=== PATIENT | male | born 1955 | race Caucasian/White ===

== ENCOUNTER → 2018-06-02 14:18 | Outpatient (CLI) | payer OTHER, SELFPAY ==
--- NOTE | 2018-06-02 | US_ITS ---
US Arterial Ankle Brachial Ind US Arterial Ankle Brachial Ind HISTORY: Bilateral rest pain Smoker. Hypertension.. Hyperlipidemia and bilateral rest pain bilateral claudication. TECHNIQUE: Segmental pressures obtained of both right and left leg. These are compared to brachial blood pressure to yield index at each level sampled including summary JUAN. The data sheets from the procedure are available in PACS FINDINGS Rest study only performed today No prior studies available for comparison. Blood pressures reported are in millimeters mercury. RIGHT LEG = JUAN 1.1 Right TBI = 0.8 Brachial BP: 130 Thigh BP: 145 with index 1.06 Calf BP: BP 146 with index 1.07 Ankle PT: 156 with index 1.14 Ankle DP : 149 index 1.09 Digit =105 with index 0.77 ========= LEFT LEG JUAN = 1.0 Left TBI = 0.7 Brachial BPD: 137 Thigh BP: BP 141 index 01.03 Calf BP: BP 129 index 0.94 Ankle PT:BP 1:30/index 0.98 Ankle DP: BP 139 index 1.01 Digit = BP 90 with index 0.66 Pulses and waveforms: Normal bilateral --------IMPRESSION: Right JUAN 1.1 Right TBI is 0.8 . Left JUAN 1.0 Left TBI 0.7 Normal pulses and waveforms bilateral.
== END ==
PROVIDERS: PCP Nurse Practitioner Family; Visit Provider Nurse Practitioner Family
DX: M79.661 Pain in right lower leg (principal)
CPT/HCPCS: 93922

== ENCOUNTER 2023-08-05 13:53 | Outpatient (CLI) | payer OTHER, MEDICARE, SELFPAY ==
--- NOTE | 2023-08-05 13:58 | MR_ITS ---
FINAL REPORT CLINICAL HISTORY: PAIN OF LEFT KNEE JOINT FINDINGS: Multiplanar MR imaging of the right knee was performed without contrast. There is diffuse medial meniscal degeneration with a tear of the anterior horn and possible tear of the posterior horn. The lateral meniscus is intact. There is fluid in the anterior cruciate ligament, favor cyst or mucinous degeneration. The posterior cruciate ligament is intact. The medial collateral ligament and lateral ligamentous complex are intact. The patellar and quadriceps tendons are intact. There is no evidence of fracture. Foci of patellar tendinitis. There are moderate degenerative changes with severe medial compartment chondromalacia. Small joint effusion is seen. The musculature is intact. Moderate popliteal cyst is identified. There is a 15 mm presumed ganglion of the lateral tibia adjacent to the proximal tibiofibular joint. IMPRESSION: Tear of the anterior horn of the medial meniscus with possible tear of the posterior horn. ACL cyst versus mucinous degeneration. Degenerative change and chondromalacia. Ganglion cyst of the lateral tibia. Reviewed, Interpreted and Dictated by Tyree España III, MD Transcribed by Radha Martin Authenticated and [facility]
== END 2023-08-05 23:59 | disposition home or self-care (01) ==
LOC: RAD 13:54
PROVIDERS: PCP Nurse Practitioner; Visit Provider Nurse Practitioner
DX: M25.562 Pain in left knee (principal)
CPT/HCPCS: 73721

== ENCOUNTER 2023-10-05 07:00 | Outpatient (RCR) | payer OTHER, MEDICARE, SELFPAY | END 2023-10-26 13:25 | disposition home or self-care (01) | LOC: PT 07:00 | PROVIDERS: Visit Provider Orthopaedic Surgery | DX: M17.12 Unilateral primary osteoarthritis, left knee (principal); S83.242A Other tear of medial meniscus, current injury, left knee, initial encounter | CPT/HCPCS: 97010; 97014; 97035; 97110; 97163; 97164; 97530; G0283 ==

== ENCOUNTER 2025-01-09 06:51 | Outpatient (CLI) | payer OTHER, MEDICARE, SELFPAY ==
--- OUTSIDE RECORDS SUMMARY | 2025-01-09 06:54 | XMS_ITS | Continuity of Care Document ---
Author Organization [place] - [employer] [facility] Address [address] [place] [address] Assessment No assessment recorded. Plan of Treatment Reminders Order Date Submit Date Provider Last Modified By Organization Details Last Modified Time Details Appointments FOLLOW UP 30 2025 08:00A M Anna Marie Hein APRN Not available Not available Not available Lab CBC w/ auto diff 2024 025 [facility]), [address] [place], [address], 12/30/2024 07:08:14 CMP, serum or plasma 2024 025 [facility]), [address] [place], [address], 12/30/2024 07:08:14 TSH + free T4, serum 2024 025 [facility]), [address] [place], [address], 12/30/2024 07:08:13 PSA, total, serum or plasma 2024 025 [facility], [address] [place], [address], 12/30/2024 07:08:16 lipid panel, serum 2024 025 [facility], [facility] [place], [address], 12/30/2024 07:08:15 HbA1c (hemoglob in A1c), blood 2024 [facility]), [address] [place], [address], 12/30/2024 07:08:15 ca 125, serum 2024 [facility]), [address] [place], [address], 12/30/2024 07:08:16 vitamin D, 25-hydrox y, total, serum 2024 [facility]), [address] [place], [address], 12/30/2024 07:08:16 noninvasi ve colorecta l cancer DNA + occult blood screening , QL, stool 2024 [facility], [address], [address], [place], [address], 12/29/2024 09:55:19 iron + TIBC + ferritin, serum 2024 [facility]), [address] [place], [address], 12/30/2024 07:08:13 cobalamin and folate panel, serum 2024 [facility]), [address] [place], [address], 12/30/2024 07:08:15 Referral None recorded. Procedures None recorded. Surgeries None recorded. Imaging LDCT, chest, for lung cancer screening [address] ([facility]), [address], [place], [address], 01/05/2025 09:15:58 Medication Orders carvedilo l 6.25 mg tablet 2024 [facility], [address] [place] [address], [address], 12/30/2024 09:24:51 clopidogr el 75 mg tablet 2024 [facility], [address] [place] [address], [address], 12/30/2024 09:24:53 lisinopri l 20 mg-hydroc hlorothia zide 12.5 mg tablet 2024 [facility], [address] [place] [address], [address], 12/30/2024 09:24:52 simvastat in 40 mg tablet 2024 [facility], [address] [place] [address], [address], 12/30/2024 09:24:50 ergocalci ferol (vitamin D2) 1,250 mcg (50,000 unit) capsule 2024 [facility], [address] [place] [address], [address], 12/30/2024 09:24:50 omeprazol e 40 mg capsule,d elayed release 2024 [facility], [address] [place] [address], [address], 12/30/2024 09:24:51 Patient TargetsNo targets recorded. Patient InstructionsNo instructions recorded. Reason for Referral None Reported. Results Created Date Observation Date Name Description Value Unit Range Abnormal Flag Note LastModifiedBy Organization Detail LastModifiedTime 12/30/1912/30/2024 FE+TI BC+FE R iron bind.cap.(TI BC) 373 ug/dL 250-45 0 normal Not Available [facility] ([facility]) [address] [place], [address], 12/30/2024 07:08:13 12/30/1912/30/2024 FE+TI BC+FE R UIBC 345 ug/dL 111-34 3 above high normal Not Available [facility] ([facility]) [address] [place], [address], 12/30/2024 07:08:13 12/30/1912/30/2024 FE+TI BC+FE R iron 28 ug/dL 38-169 below low normal Not Available [facility] ([facility]) [address] [facility], [place], [address], 12/30/2024 07:08:13 12/30/1912/30/2024 FE+TI BC+FE R iron saturation 8 % 15-55 alert low Not Available [facility] ([facility]) [address] [place], [address], 12/30/2024 07:08:13 12/30/1912/30/2024 FE+TI BC+FE R ferritin 90 NG/mL 30-400 normal Not Available [facility] ([facility]) [address] [place], [address], 12/30/2024 07:08:13 12/30/1912/30/2024 TSH+F REE T4 TSH 0.734 uIU/m L 0.450- 4.500 normal Not Available [facility] ([facility]) [address] [place], [address], 12/30/2024 07:08:13 12/30/1912/30/2024 TSH+F REE T4 T4,free(dire ct) 1.15 NG/dL 0.82-1 .77 normal Not Available [facility] ([facility]) [address] [place], [address], 12/30/2024 07:08:13 12/30/19 25 12/30/2024 CBC WITH DIFFE RENTI AL/PL ATELE T WBC 12.8 x10e3 /uL 3.4-10 .8 above high normal Not Available [facility] ([facility]) [address] [facility], [place], [address], 12/30/2024 07:08:14 12/30/1912/30/2024 CBC WITH DIFFE RENTI AL/PL ATELE T RBC 4.66 x10e6 /uL 4.14-5 .80 normal Not Available [facility] ([facility]) [address] [place], [address], 12/30/2024 07:08:14 12/30/1912/30/2024 CBC WITH DIFFE RENTI AL/PL ATELE T hemoglobin 12.3 g/dL 13.0-1 7.7 below low normal Not Available [facility] ([facility]) [address] [facility], [place], [address], 12/30/2024 07:08:14 12/30/1912/30/2024 CBC WITH DIFFE RENTI AL/PL ATELE T hematocrit 40.0 % 37.5-5 1.0 normal Not Available [facility] ([facility]) [address] [place], [address], 12/30/2024 07:08:14 12/30/1912/30/2024 CBC WITH DIFFE RENTI AL/PL ATELE T MCV 86 fL 79-97 normal Not Available [facility] ([facility]) [address] [place], [address], 12/30/2024 07:08:14 12/30/1912/30/2024 CBC WITH DIFFE RENTI AL/PL ATELE T MCH 26.4 pg 26.6-3 3.0 below low normal Not Available [facility] ([facility]) [address] [place], [address], 12/30/2024 07:08:14 12/30/1912/30/2024 CBC WITH DIFFE RENTI AL/PL ATELE T MCHC 30.8 g/dL 31.5-3 5.7 below low normal Not Available [facility] ([facility]) [address] [facility], [place], [address], 12/30/2024 07:08:14 12/30/1912/30/2024 CBC WITH DIFFE RENTI AL/PL ATELE T RDW 14.5 % 11.6-1 5.4 Not Available [facility] ([facility]) [address] [facility], [place], [address], 12/30/2024 07:08:14 12/30/1912/30/2024 CBC WITH DIFFE RENTI AL/PL ATELE T platelets 258 x10e3 /uL 150-45 0 normal Not Available [facility] ([facility]) [address] [facility], [place], [address], 12/30/2024 07:08:14 12/30/1912/30/2024 CBC WITH DIFFE RENTI AL/PL ATELE T neutrophils 69 % not estab. normal Not Available [facility] ([facility]) [address] [facility], [place], [address], 12/30/2024 07:08:14 12/30/1912/30/2024 CBC WITH DIFFE RENTI AL/PL ATELE T lymphs 19 % not estab. normal Not Available [facility] ([facility]) [address] [facility], [place], [address], 12/30/2024 07:08:14 12/30/19 25 12/30/2024 CBC WITH DIFFE RENTI AL/PL ATELE T monocytes 9 % not estab. normal Not Available [facility] ([facility]) [address] [facility], [place], [address], 12/30/2024 07:08:14 12/30/1912/30/2024 CBC WITH DIFFE RENTI AL/PL ATELE T eos 2 % not estab. normal Not Available [facility] ([facility]) [address] [facility], [place], [address], 12/30/2024 07:08:14 12/30/1912/30/2024 CBC WITH DIFFE RENTI AL/PL ATELE T basos 0 % not estab. normal Not Available [facility] ([facility]) [address] [facility], [place], [address], 12/30/2024 07:08:14 12/30/1912/30/2024 CBC WITH DIFFE RENTI AL/PL ATELE T immature cells FIRE EATER Not Available [facility] ([facility]) [address] [place], [address], 12/30/2024 07:08:14 12/30/1912/30/2024 CBC WITH DIFFE RENTI AL/PL ATELE T neutrophils (absolute) 8.9 x10e3 /uL 1.4-7. 0 above high normal Not Available [facility] ([facility]) [address] [place], [address], 12/30/2024 07:08:14 12/30/19 25 12/30/2024 CBC WITH DIFFE RENTI AL/PL ATELE T lymphs (absolute) 2.4 x10e3 /uL 0.7-3. 1 normal Not Available [facility] ([facility]) [address] [place], [address], 12/30/2024 07:08:14 12/30/1912/30/2024 CBC WITH DIFFE RENTI AL/PL ATELE T monocytes(ab solute) 1.2 x10e3 /uL 0.1-0. 9 above high normal Not Available [facility] ([facility]) [address] [place], [address], 12/30/2024 07:08:14 12/30/1912/30/2024 CBC WITH DIFFE RENTI AL/PL ATELE T eos (absolute) 0.3 x10e3 /uL 0.0-0. 4 normal Not Available [facility] ([facility]) [address] [facility], [place], [address], 12/30/2024 07:08:14 12/30/1912/30/2024 CBC WITH DIFFE RENTI AL/PL ATELE T baso (absolute) 0.0 x10e3 /uL 0.0-0. 2 normal Not Available [facility] ([facility]) [address] [facility], [place], [address], 12/30/2024 07:08:14 12/30/1912/30/2024 CBC WITH DIFFE RENTI AL/PL ATELE T immature granulocytes 1 % not estab. Not Available [facility] ([facility]) [address] [facility], [place], [address], 12/30/2024 07:08:14 12/30/1912/30/2024 CBC WITH DIFFE RENTI AL/PL ATELE T immature grans (abs) 0.1 x10e3 /uL 0.0-0. 1 Not Available [facility] ([facility]) [address] [facility], [place], [address], 12/30/2024 07:08:14 12/30/1912/30/2024 CBC WITH DIFFE RENTI AL/PL ATELE T NRBC FIRE EATER Not Available [facility] ([facility]) [address] [facility], [place], [address], 12/30/2024 07:08:14 12/30/1912/30/2024 CBC WITH DIFFE RENTI AL/PL ATELE T hematology comments: FIRE EATER Not Available [facility] ([facility]) [address] [facility], [place], [address], 12/30/2024 07:08:14 10/03/20 25 12/30/2024 COMP. METAB OLIC PANEL (14) glucose 86 mg/dL 70-99 normal Not Available [facility] ([facility]) [address] [place], [address], 12/30/2024 07:08:14 12/30/19 25 12/30/2024 COMP. METAB OLIC PANEL (14) BUN 22 mg/dL 8-27 normal Not Available [facility] ([facility]) [address] [place], [address], 12/30/2024 07:08:14 12/30/1912/30/2024 COMP. METAB OLIC PANEL (14) creatinine 1.17 mg/dL 0.76-1 .27 normal Not Available [facility] ([facility]) [address] [place], [address], 12/30/2024 07:08:14 12/30/19 25 12/30/2024 COMP. METAB OLIC PANEL (14) eGFR 68 mL/mi n/1.7 3 >59 normal Not Available [facility] ([facility]) [address] [place], [address], 12/30/2024 07:08:14 12/30/19 25 12/30/2024 COMP. METAB OLIC PANEL (14) BUN/creatini ne ratio 19 10-24 normal Not Available [facility] ([facility]) [address] [place], [address], 12/30/2024 07:08:14 12/30/19 25 12/30/2024 COMP. METAB OLIC PANEL (14) sodium 136 mmol/ L 134-14 4 normal Not Available [facility] ([facility]) [address] [place], [address], 12/30/2024 07:08:14 12/30/19 25 12/30/2024 COMP. METAB OLIC PANEL (14) potassium 4.8 mmol/ L 3.5-5. 2 normal Not Available [facility] ([facility]) [address] [place], [address], 12/30/2024 07:08:14 12/30/19 25 12/30/2024 COMP. METAB OLIC PANEL (14) chloride 96 mmol/ L 96-106 normal Not Available [facility] ([facility]) [address] [place], [address], 12/30/2024 07:08:14 12/30/19 25 12/30/2024 COMP. METAB OLIC PANEL (14) carbon dioxide, total 25 mmol/ L 20-29 normal Not Available [facility] ([facility]) [address] [place], [address], 12/30/2024 07:08:14 12/30/19 25 12/30/2024 COMP. METAB OLIC PANEL (14) calcium 9.1 mg/dL 8.6-10 .2 normal Not Available [facility] ([facility]) [address] [place], [address], 12/30/2024 07:08:14 12/30/19 25 12/30/2024 COMP. METAB OLIC PANEL (14) protein, total 6.4 g/dL 6.0-8. 5 normal Not Available [facility] ([facility]) [address] [place], [address], 12/30/2024 07:08:14 12/30/19 25 12/30/2024 COMP. METAB OLIC PANEL (14) albumin 3.8 g/dL 3.9-4. 9 below low normal Not Available [facility] ([facility]) [address] [place], [address], 12/30/2024 07:08:14 12/30/19 25 12/30/2024 COMP. METAB OLIC PANEL (14) globulin, total 2.6 g/dL 1.5-4. 5 Not Available [facility] ([facility]) [address] [place], [address], 12/30/2024 07:08:14 12/30/1912/30/2024 COMP. METAB OLIC PANEL (14) bilirubin, total 0.8 mg/dL 0.0-1. 2 normal Not Available [facility] ([facility]) [address] [place], [address], 12/30/2024 07:08:14 12/30/1912/30/2024 COMP. METAB OLIC PANEL (14) alkaline phosphatase 69 IU/L 47-123 normal Not Available [facility] ([facility]) [address], [place], [address], 12/30/2024 07:08:14 12/30/1912/30/2024 COMP. METAB OLIC PANEL (14) AST (SGOT) 11 IU/L 0-40 normal Not Available [facility] ([facility]) [address] [place], [address], 12/30/2024 07:08:14 12/30/1912/30/2024 COMP. METAB OLIC PANEL (14) ALT (SGPT) 8 IU/L 0-44 normal Not Available [facility] ([facility]) [address] [facility] [place], [address], 12/30/2024 07:08:14 12/30/1912/30/2024 LIPID PANEL cholesterol, total 117 mg/dL 100-19 9 normal Not Available [facility] ([facility]) [address] [place], [address], 12/30/2024 07:08:15 12/30/1912/30/2024 LIPID PANEL triglyceride s 100 mg/dL 0-149 normal Not Available [facility] ([facility]) [address] [facility] [place], [address], 12/30/2024 07:08:15 12/30/19 25 12/30/2024 LIPID PANEL HDL cholesterol 43 mg/dL >39 normal Not Available [facility] ([facility]) [address] [facility], [place], [address], 12/30/2024 07:08:15 12/30/19 25 12/30/2024 LIPID PANEL VLDL cholesterol aurelio 19 mg/dL 5-40 Not Available [facility] ([facility]) [address] [facility], [place], [address], 12/30/2024 07:08:15 12/30/1912/30/2024 LIPID PANEL LDL chol calc ([facility]) 55 mg/dL 0-99 Not Available [facility] ([facility]) [address] [facility], [place], [address], 12/30/2024 07:08:15 12/30/1912/30/2024 LIPID PANEL LDL calc comment: FIRE EATER Not Available [facility] ([facility]) [address] [facility], [place], [address], 12/30/2024 07:08:15 12/30/1912/30/2024 VITAM IN B12 AND FOLAT E vitamin B12 247 pg/mL 232-12 45 normal Not Available [facility] ([facility]) [address] [facility], [place], [address], 12/30/2024 07:08:15 12/30/1912/30/2024 VITAM IN B12 AND FOLAT E folate (folic acid), serum 3.8 NG/mL >3.0 normal A serum folat e ginny ntrat ion of less than 3.1 ng/mL is consi dered to repre sent clini aurelio defic iency . Not Available [facility] ([facility]) [address] [facility], [place], [address], 12/30/2024 07:08:15 12/30/1912/30/2024 HEMOG LOBIN A1C hemoglobin A1C 5.9 % 4.8-5. 6 above high normal Predi abete s: 5.7 - 6.4 Diabe braden: >6.4 Glyce nicko contr ol for adult s with diabe braden: <7.0 Not Available [facility] ([facility]) [address] [place], [address], 12/30/2024 07:08:15 12/30/19 25 12/30/2024 CANCE R ANTIG EN (CA) 125 cancer antigen (Ca) 125 11.2 U/mL not estab. normal [facility] Diagn ostic s Elect twan milum inesc ence Immun oassa y (ECLI A) Value s obtai rell with diffe rent assay metho ds or kits canno t be used inter [employer] eay . Resul ts canno t be inter prete d as absol tejon evide nce of the prese nce or absen ce of [facility] disea se. Not Available [facility] ([facility]) [address] [facility], [place], [address], 12/30/2024 07:08:16 12/30/19 25 12/30/2024 PROST ATE-S PECIF IC AG prostate specific Ag 1.2 NG/mL 0.0-4. 0 normal Twan ECLIA metho dolog y. Accor ding to the Ameri can Urolo gical Assoc iatio n, Serum PSA shoul d decre ase and remai n at undet ectab le level s after radic al prost atect lilly. The AUA defin es bioch emica l recur rence as an initi al PSA value 0.2 ng/mL or great er follo wed by a subse quent confi rmato ry PSA value 0.2 ng/mL or great er. Value s obtai rell with diffe rent assay metho ds or kits canno t be used inter [employer] [facility] [employer] eably . Resul ts canno t be inter prete d as absol tejon evide nce of the prese nce or absen ce of mal nant disea se. Not Available [facility] ([facility]) [address] [facility] [place], [address], 12/30/2024 07:08:16 12/30/19 25 12/30/2024 VITAM IN D, 25-HY DROXY vitamin D, 25-hydroxy 44.0 NG/mL 30.0-1 00.0 Vitam in D defic iency has been defin ed by the Insti tute of Medic ine and an Endoc rine Socie ty pract ice guide line as a level of serum 25-OH vitam in D less than 20 ng/mL (1,2) . The Endoc rine Socie ty went on to furth er defin e vitam in D insuf ficie ncy as a level betwe en 21 and 29 ng/mL (2). 1. IOM (Inst itute of Medic ine). 2009. Dieta ry refer ence intak es for calci um and D. Jere samosn [place]: The [facility] Press . 2. Dolores mejía MF, Shannan orellana [place], Valerie off-F errar i PRATER, et al. Evalu ation , treat ment, and preve ntion of vitam in D defic iency : an Endoc rine Socie ty clini aurelio pract ice guide line. JCEM. 2010; 96(7) :1911 -30. Not Available [facility] ([facility]) [address] [facility], [place], [address], 12/30/2024 07:08:16 Result Notes None recorded. 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 2 08:02:28 Gastroes ophageal reflux disease without esophagi tis 780656576 Active 2017 Not Available [facility] 4 17:03:23 Dyspnea 045455435 Completed 201701/07/2018 Problem Code: R06.02; Problem Code Type: ICD-10; Not Available [facility] 21:20:39 Tobacco dependen ce syndrome 47812453 Completed 201709/27/2020 Problem Code: 305.1; Problem Code Type: ICD-9; Not Available [facility] 2 21:20:43 Gastroes ophageal reflux disease 724637042 Completed 201709/27/2020 Problem Code: 530.81; Problem Code Type: ICD-9; Not Available [facility] 2 21:20:45 Mixed hyperlip idemia 279905294 Active 2017 Problem Code: E78.2; Problem Code Type: ICD-10; Not Available [facility] 4 17:03:23 Dyspnea 439354188 Completed 201702/11/2018 Problem Code: R06.02; Problem Code Type: ICD-10; Not Available [facility] 2 21:20:39 Abnormal weight gain 642198744 Completed 201702/11/2018 Problem Code: R63.5; Problem Code Type: ICD-10; Not Available [facility] 2 21:20:39 Pain of right lower leg 07767989074 9108 Completed 201803/08/2020 Problem Code: M79.661; Problem Code Type: ICD-10; Not Available [facility] 2 21:20:38 Pain of left lower leg 24654746217 9101 Completed 201803/08/2020 Problem Code: M79.662; Problem Code Type: ICD-10; Not Available [facility] 2 21:20:39 Localize d edema 849082327 Completed 201803/08/2020 Problem Code: R60.0; Problem Code Type: ICD-10; Not Available [facility] 2 21:20:39 General examinat ion of patient Completed 201903/08/2020 Not Available [facility] 2 21:20:40 Endocrin e/metabo lic screenin g Completed 201912/26/2021 Problem Code: Z13.29; Problem Code Type: ICD-10; KRISTYN murillo [employer] 2 08:02:10 Screenin g for malignan t neoplasm of prostate Completed 201912/26/2021 Problem Code: Z12.5; Problem Code Type: ICD-10; KRISTYN murillo [employer]. 2 08:02:11 Body mass index 30+ - obesity 491664337 Active 2019 Problem Code: Z68.31; Problem Code Type: ICD-10; Not Available [facility] 4 17:03:23 Screenin g for malignan t neoplasm of colon Completed 201903/08/2020 Not Available [facility] 2 21:20:41 Liver function tests outside referenc e range 163565506 Active 2019 Problem Code: R94.5; Problem Code Type: ICD-10; Not Available [facility] 4 17:03:23 Associate Director Of Biostatistics license medical examinat ion Completed 201912/26/2021 Problem Code: Z02.4; Problem Code Type: ICD-10; RKISTYN murillo [employer] 2 08:02:10 Nicotine dependen 30031484 Completed 202009/27/2020 Problem Code: F17.200; Problem Code Type: ICD-10; Not Available [facility] 2 21:20:38 Low vision right eye, normal vision left eye [id number] 9106 Completed 202012/26/2021 HHL49Ems es: 'H54.51' ; KRISTYN LOOMISNER lidia, [employer]. 2 08:02:11 Body mass index 25-29 - overweig ht 181288295 Completed 202005/28/2020 Problem Code: Z68.29; Problem Code Type: ICD-10; Not Available [facility] 2 21:20:42 Ruptured abdomina l aortic aneurysm 28448890 Active 2020 Problem Code: I71.3; Problem Code Type: ICD-10; Not Available [facility] 4 17:03:23 On examinat ion - inspecti on of blood Completed 202009/27/2020 Not Available [facility] 21:20:39 Wheezing 22943833 Completed 202012/26/2021 Problem Code: R06.2; Problem Code Type: ICD-10; KRISTYN LOOMISNER [employer]ia, [employer] 08:02:11 Viral screenin g Completed 202003/07/2021 Problem Code: Z11.52; Problem Code Type: ICD-10; Not Available [facility] 21:20:40 Pre-surg iraida testing Completed 202012/26/2021 Problem Code: Z01.812; Problem Code Type: ICD-10; KRISTYN murillo, [employer] 2 08:02:10 Body mass index 30+ - obesity 475504664 Completed 202109/26/2021 Problem Code: Z68.31; Problem Code Type: ICD-10; Not Available [facility] 21:20:43 Body mass index 30+ - obesity 481043823 Completed 202109/26/2021 Problem Code: Z68.33; Problem Code Type: ICD-10; Not Available [facility] 21:20:42 Nicotine dependen ce 04286163 Active 2021 Problem Code: F17.200; Problem Code Type: ICD-10; Not Available [facility] 4 17:03:23 COVID-19 304152314 Active 2023 Christin Herrera, [employer] [address] [place], [address] , [employer] 4 09:12:45 Headache 83313729 Active 2023 Christin Herrera NP [address] [place], [address] , [employer] 4 09:32:18 Hyperlip idemia 57168979 Active 2024 Dora Jolly lidia, [employer] 5 14:43:04 Fatigue 30340847 Active 2024 Dorabrock Blancas lidia, [employer] 5 14:43:04 Hypergly cemia 43786295 Active 2024 Dora De La Fuentelly [facility], [employer] 5 14:43:04 Viral wart on finger 037426281 Active 2024 Dora Thakkary [facility], [employer] 5 10:26:48 Problem Notes None recorded. Procedures Surgical History Date Name Laterality Status Provider Name and Address Organization Details Recorded Time 09/23/19 25 Cryosurgery Warts/Skin Tags completed Dora [employer] 09/22/2024 10:27:53 three dimensional ultrasonography of abdominal aortic endovascular aneurysm repair with contrast completed [employer]. 12/26/2021 08:05:24 Unlisted procedure shoulder completed [employer]. 12/26/2021 08:05:39 Imaging Results None recorded. Procedure Notes None recorded. Medical Equipment None Reported. Allergies Allergen ID Allergen Name Allergen Category Reaction Reaction Severity Criticality Documentation Date Start Date Code Code System Note Provider Name and Address Organization Details Recorded Time 58211 atorvasta tin calcium medicatio n Not available Not available Not available 12/02/2021 70420 RxNorm KRISTYNBHANU murillo [facility] [employer], [facility]. 2 08:01:11 Medications Name Sig Start Date Stop Date Status Note LastModified by Organization Details LastModified Time ketoprofe n lidocaine bupivacai ne meloxicam 15% 5% 2% 0.1% topical # APPLY 1-2 GRAMS TO AFFECTED AREAS 3-4 TIMES DAILY 11/16 completed Not Available Not Available Not Available atorvasta tin 80 mg tablet Take 1 tablet at bedtime 09/14 completed Not Available Not Available Not Available carvedilo l 6.25 mg tablet TAKE 1 TABLET BY MOUTH TWICE DAILY with food active Not Available Not Available No t Available lisinopri l 20 mg-hydroc hlorothia zide 12.5 mg tablet TAKE 1 TABLET BY MOUTH EVERY DAY active Not Available Not Available No t Available azithromy teri 250 mg tablet TAKE 2 TABLETS BY MOUTH ON DAY 1, THEN TAKE 1 TABLET DAILY ON DAYS 2-5 12/29 completed Not Available Not Available Not Available meloxicam 15 mg tablet 09/30 completed Not Available Not Available Not Available prednison e 20 mg tablet TAKE 1 TABLET BY MOUTH 3 TIMES DAILY FOR 3 DAYS 12/29 completed Not Available Not Available Not Available Zantac 300 mg tablet Take 1 tablet(s ) by mouth at bedtime 09/14 completed Not Available Not Available Not Available clopidogr el 75 mg tablet TAKE 1 TABLET BY MOUTH ONCE daily active Not Available Not Available No t Available dextromet horphan-g uaifenesi n 10 mg-100 mg/5 mL oral syrup Take 1 teaspoon by mouth q4h prn for cough 02/11 completed Not Available Not Available Not Available omeprazol e 40 mg capsule,d elayed release TAKE 1 CAPSULE BY MOUTH ONCE DAILY BEFORE A MEAL active Not Available Not Available No t Available simvastat in 40 mg tablet TAKE 1 TABLET BY MOUTH DAILY in THE evening active Not Available Not Available No t Available Depo-Medr ol 80 mg/mL suspensio n for injection Take 1 mL by injectio n route. 09/22 completed Not Available Not Available Not Available cyclopent olate 1 % eye drops 12/26 completed Not Available Not Available Not Available hydrocort isone 2.5 % topical cream with perineal applicato r APPLY A THIN LAYER TO THE AFFECTED AREA(S) BY TOPICAL ROUTE 2-4 TIMES DAILY active Not Available Not Available No t Available simvastat in 20 mg tablet 01/01 completed Not Available Not Available Not Available erythromy teri 5 mg/gram (0.5 %) eye ointment 12/26 completed Not Available Not Available Not Available ferrous sulfate 325 mg (65 mg iron) tablet Take 1 tablet every day by oral route for 90 days. active Not Available Not Available No t Available furosemid e 20 mg tablet 05/28 completed Not Available Not Available Not Available albuterol sulfate HFA 90 mcg/actua tion aerosol inhaler inhale ONE TO TWO puffs by MOUTH every FOUR hours as needed active Not Available Not Available No t Available Vitamin D2 1,250 mcg (50,000 unit) capsule TAKE 1 CAPSULE BY MOUTH every WEEK FOR 90 DAYS active Not Available Not Available No t Available amoxicill in 875 mg-potass ium clavulana te 125 mg tablet TAKE 1 TABLET BY MOUTH EVERY TWELVE HOURS FOR 7 DAYS 12/29 completed Not Available Not Available Not Available Euflexxa 10 mg/mL (mw 2.4-3.6 million) intra-art icular syringe Had one injectio n, but will not be getting any more 09/30 completed had one injectio n but will not be getting any more. Not Available Not Available Not Available Symbicort 160 mcg-4.5 mcg/actua tion HFA aerosol inhaler Inhale 2 puffs twice a day by inhalati on route. 06/30 completed Not Available Not Available Not Available ferrous fumarate 325 mg (106 mg iron) tablet Take 1 tablet every day by oral route for 90 days. 2024 active Not Available Not Available Not Avai lable Chantix Continuin g Month Box 1 mg tablet 1 pill po BID 03/08 completed Not Available Not Available Not Available Chantix Starting Month Box 0.5 mg (11)-1 mg (42) tablets in dose pack Take as Directed 01/07 completed Not Available Not Available Not Available Breo Ellipta 100 mcg-25 mcg/dose powder for inhalatio n Inhale 1 puff every day by inhalati on route for 90 days. 09/30 completed does not like the taste Not Available Not Available Not Available Adult Aspirin Regimen 81 mg tablet,de layed release take 1 tablet (81 mg) by oral route once daily 07/13 completed pt states he hasnt taken in a long time Not Available Not Available Not Available Flowflex COVID-19 Antigen Home Test kit 04/03 completed Not Available Not Available Not Available Vitals Date Recorded Body height Body mass index (BMI) Body weight Heart rate Oxygen saturation Oxygen saturation in Arterial blood by Pulse oximetry Systolic And Diastolic Provider Name and Address Organization Details Last Updated DateTime 182.88 cm 26.6 kg/m2 49021.1 g 86 /min 89 % 89 % 133/62 mm[Hg] Dora Blancas [employer], [employer] 08:23:15 Social History Question Answer Notes LastModified by Organizat ion Details LastModified Time Tobacco Smoking Status Current Every Day Smoker KRISTYN murillo, [employer], [employer] 12/26/2021 08:03:51 Do You Have An Advance Directive? No [email or web address] Information n ot available 12/26/2021 Are You Blind Or Do You Have Difficulty Seeing? No [email or web address] Information n ot available 12/26/2021 Are You A Caregiver? No [email or web address] Information not available 04/03/2022 In The 14 Days Before Symptom Onset, Have You Had Close Contact With A Laboratory-confirm ed COVID-19 While That Case Was Ill? No [email or web address] Information n ot available 04/03/2022 In The 14 Days Before Symptom Onset, Have You Had Close Contact With A Person Who Is Under Investigation For COVID-19 While That Person Was Ill? No [email or web address] Information not available 04/03/2022 Have You Been To An Area Known To Be High Risk For COVID-19? No [email or web address] Information not available 12/26/2021 Are You Deaf Or Do You Have Serious Difficulty Hearing? No [email or web address] Information not available 12/26/2021 What Type Of Diet Are You Following? REGULAR [email or web address] Information n ot available 12/26/2021 Have There Been Any Changes To Your Family Or Social Situation? No [email or web address] Information no t available 04/03/2022 Do You Have A Medical Power Of Oil [employer] Superintendent? No [email or web address] Information not available 12/26/2021 What Was The Date Of Your Most Recent Tobacco Screening? 12/29/2024 Information not available 12/29/2024 What Is Your Current Pack Years? 30ormorepack years [email or web address] Information not available 12/26/2021 What Is Your Relationship Status? [email or web address] Information not available 12/26/2021 Do You Use Your Seat Belt Or Car Seat Routinely? Yes [email or web address] Information not available 04/03/2022 Are You Passively Exposed To Smoke? Yes [email or web address] Information no t available 04/03/2022 Are There Any Smokers In Your House? Yes [email or web address] Information not available 04/03/2022 How Much Tobacco Do You Smoke? 2 PPD [email or web address] Information not available 12/26/2021 Do You Participate In Social Media? No [email or web address] Information not available 11/17/2023 Do You Use Sunscreen Routinely? No Information not available 04/03/2022 Has Tobacco Cessation Counseling Been Provided? Yes Information not available 10/15/2022 On What Date Was Tobacco Cessation Counseling Provided? 12/29/2024 Information not available 12/29/2024 Have You Recently Traveled Abroad? No Information not available 12/26/2021 Do You Have Difficulty Walking Or Climbing Stairs? No [email or web address] Information not available 12/26/2021 Are You Currently In School? No [email or web address] Information not available 12/26/2021 Do You Have Any Dietary Restrictions? No [email or web address] Information not available 11/17/2023 Sex: Male Functional Status Question Answer Note LastModified by Organizat ion Details LastModified Time Do you use any illicit or recreational drugs? No [email or web address] Information not available 04/03/2022 Do you or have you ever used any other forms of tobacco or nicotine? No [email or web address] Information not available 11/17/2023 What is your level of alcohol consumption? None history of alcoholism [email or web address] Information not available 12/26/2021 Are you currently employed? Yes [email or web address] Information not available 12/26/2021 Do you have transportation difficulties? No [email or web address] Information not available 12/26/2021 Are you able to walk independently without assistance or assistive devices? YESWOREST [email or web address] Information not available 12/26/2021 Do you have difficulty doing errands alone? No Information not available 12/26/2021 Are you able to care for yourself independently? Yes [email or web address] Information not available 12/26/2021 Do you have difficulty dressing, bathing, grooming, or toileting? No [email or web address] Information not available 12/26/2021 Mental Status Question Answer Note LastModified by Organization D etails LastModified Time Do you have difficulty concentrating, remembering or making decisions? No Information no t available 12/26/2021 Family History Relationship Description Onset Age of this Age Resolved Age Notes LastModified by Organization Details LastModified Time Son Family history of drug abuse [email or web address] Not available 11/29 08:03:29 Mother Family history of neurological disorder [email or web address] Not available 12/26 08:03:23 Father Family history of Hypertension [email or web address] Not available 08:03:20 Medical History Condition Response Hospitalizations N Emergency room visit since last appointm ent. N Hypertension Y Immunizations Vaccine Type Date Status Note Provider Name and Address Organization Details Recorded Time COVID-19 vaccine, vector-nr, rS-Ad26, PF, 0.5 mL 021 completed Not Available [employer] 05/04/2023 17:03:24 zoster recombinant 024 cancelled patient objection Theresa Hein APRN [address] [place], [address], [employer] 10/01/2023 09:01:08 pneumococcal polysaccharide PPV23 024 cancelled patient objection Theresa Hein APRN [address] [place], [address], [facility] [employer] 10/01/2023 09:01:08 COVID-19 vaccine, vector-nr, rS-Ad26, PF, 0.5 mL 022 completed Not Available [facility] 05/04/2023 17:03:24 Past Encounters Encounter ID Performer Location Encounter Start Date Encounter Closed Date Diagnosis/Indication Diagnosis SNOMED-CT Code Diagnosis ICD10 Code Diagnosis IMO Codes Diagnosis Note [id number] Theresa Hein [address] [address] 12/29/2024 08:16:46 12/29/2024 14:18:15 Influenza vaccination declined 898290741 Z28.21 84106609 Fatigue 55009598 R53.83 8347583 Mixed hyperlipidemia 267 746170 E78.2 08999 Hyperglycemia 76132015 R 73.9 61463 Vitamin D deficiency 347 36482 E55.9 08074 Cobalamin deficiency 190 712268 E53.8 62419 Iron defic iency anemia 21054995 D50.9 83130380 Nocturia 596742096 R35.1 59373 Unintentio nal weight loss 331285652 R63.4 260993 Benign ess ential hypertension 3627286 I10 Gastroesop hageal reflux disease without esophagitis 330909064 K21.9 Screening for malignant neoplasm of colon 493804190 Z12.11 816850 Screening for malignant neoplasm of lung 330734338 Z12.2 2394764135 Overweight in adulthood with body mass index of 25 or more but less than 30 838500681 Z68.26 280647 Health Concerns Section Related Observation LastModified by Organization Detai ls LastModified Time None Recorded Concern Status LastModified by Organization Details LastModified Time None Recorded Payers Encounter Date Sequence Insurance Name Policy Number Policy Rosario Covered Member ID Rosario Member ID Guarantor Name 12/29/2024 2 [place] Keyshawn Albarran [id number] Keyshawn Albarran 12/29/2024 1 [facility] [id number] Keyshawn Albarran [id number] Keyshawn Albarran Notes Date Note Type Note Provider Name and Address Organization Details Recorded Time 12/29/2024 text/html pt here today for medication refills. pt states hes doing well on current medication regime. pt states that for the past few weeks he has had a cool burning sensation going down his BLE and a millan in his head when he gets up from a sitting position, sometimes from a laying position. not every time but most of the time. and then after he takes a few steps he is fine . 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 pt had a AAA repair in 2019 and a kidney stent placed in 2020. states that he had a US to check blood flow in BLE in 2022 and everything was fine . pt denies any cp, soa, PRATER, numbness or tingling in BLE. on exam, pt BLE are warm to touch, flesh colored with good pulse. pt denies pain. i am going to order some labs today. if neg then will refer to cardio for further evaluation. pt has also been losing wt. in the past year he has lost 13 lbs. pt states that he went for the colonoscopy and they told him he needed the cardiac clearance and he made an appt. they rescheduled him, before the cardio appt, he called them back to tell them that and then he never heard from them again. i did order a cologuard last year and pt didnt do it. i am going to order another cologuard. pt is also a smoker. i am going to order a ldct. Theresa Hein APRN [address] [facility], [place], [address], [place] [facility] [employer] 12/29/2024 10:55:33
--- NOTE | 2025-01-09 06:55 | CT_ITS ---
FINAL REPORT TECHNIQUE: Thin section axial images were obtained through the lungs using a low-dose technique per lung cancer screening protocol. Reconstruction images were obtained using the axial data. Exam was performed using dose reduction technique. CLINICAL HISTORY: SCREENING current smoker 2 packs for 54 years CAD CTDI : 2.90 DLP: 104.73 COMPARISON: None FINDINGS: CTDLvol: 2.90 DLP: 104.73 Current smoker 108 pack year history Lungs: There is a 3 mm subpleural right upper lobe nodule well seen on series 4, image 48. The lungs are otherwise clear. No consolidations. Lymph nodes: No thoracic lymphadenopathy. Mediastinum: Heart size is normal. There are prominent coronary artery calcifications. Pleura/pericardium: No pleural or pericardial effusion. Other: Limited images of the upper abdomen demonstrate diffuse wall thickening of the stomach, greater than expected even in a nondistended stomach. Otherwise, no acute findings in the upper abdomen. IMPRESSION: 3 mm right upper lobe nodule. Modifier S: Prominent coronary artery calcifications. Gastric wall thickening greater than expected even nondistended stomach. Consider correlation with upper endoscopy if indicated. Lung RADS: 2S Recommendation: 12 month follow-up low-dose chest CT Reviewed, Interpreted and Dictated by Lore Anderson MD Transcribed by Lorena Mayen Authenticated and [facility] [place]
--- OUTSIDE RECORDS SUMMARY | 2025-01-09 06:55 | XMS_ITS | Encounter Summary ---
Author Organization Healthcare Address [address] [place] [address] Care Team Providers Care Chipper Feeder Name Role Phone Theresa Hein APRN Primary Care Provider Encounter Details Date Type Department Care Team (Late Contact Info) Description 11/24/2024 [facility]phone [facility] [address] [facility] [address] Floor [address] [place] [address] Mitali Joseph RN GS - Wound Care Social History Tobacco Use Types Packs/Day Years Used Date Smoking Tobacco: Every Day Cigarettes 1 48 Passive Smoke Exposure: Current Smokeless Tobacco: Never Alcohol Use Standard Drinks/Week Comments Not Currently 0 (1 standard drink = 0.6 oz pur e alcohol) PHQ-2 Answer Date Recorded Patient Health Questionnaire-2 Score 0 04/26/2023 Sex and Gender Information Value Date Recorded Sex Assigned at Male 02/20/2021 8:58 AM EST Legal Sex Male 8:43 PM EDT Gender Identity Male 02/20/2021 8:58 AM EST Sexual Orientation Straight 02/20/2021 8: 58 AM EST documented as of this encounter Miscellaneous Notes * Telephone Encounter - Mitali Joseph RN - 11/24/2024 2:33 PM EDT for patient to ask for release of information permissions r/t paperwork we received from his employer. Clinic phone number included in VM. documented in this encounter Plan of Treatment Upcoming Encounters Date Type Department Care Team (Late Contact Info) Description 06/01/2025 8:30 AM EST Appointment [facility] [address] [place] [address] 06/01/2025 9:00 AM EST Appointment [facility] [address] [facility] [address] [place] [address] 06/01/2025 9:30 AM EST Appointment [facility] [address] [address] [place] [address] 06/01/2025 10:40 AM EST Office Visit [facility] [address] [place] [address] Fabricio Walker MD [address] [facility] [address] [place] [address] documented as of this encounter Visit Diagnoses Not on filedocumented in this encounter Additional Health Concerns Assessment Noted Time A fall risk assessment has been complete d for the patient 06/02/2024 10:56 AM EST A Body Mass Index follow-up plan has been documented for the patient 06/05/2024 3:33 PM EDT documented as of this encounter Care Teams Chipper Feeder Relationship Specialty Start Date End Date Theresa Hein APRN [address] [place] [address] PCP - General 02/25/21 documented as of this encounter
--- OUTSIDE RECORDS SUMMARY | 2025-01-09 06:55 | XMS_ITS | Clinical Summary ---
Author Organization [facility] Address [address] [place] [address] Care Team Providers Care Mine Exploration Engineer Name Role Phone Theresa Hein APRN Primary Care Provider [phone] Allergies Active Allergy Reactions Criticality Noted Date Comments Atorvastatin Other - please docum ent in the comment field Low 06/02/2024 Medications carvedilol (Coreg) 6.25 MG tablet Take 1 tablet (6.25 mg) by mouth 2 (two) times a day with meals. 12/27/2020 Active clopidogrel (Plavix) 75 MG tablet Take 1 tablet (75 mg) by mouth daily. 12/27/2020 Active lisinopril-hydr oCHLOROthiazide 20-12.5 MG tablet Take 1 tablet by mouth daily. 01/10/2021 Active simvastatin (Zocor) 40 MG tablet Take 1 tablet (40 mg) by mouth nightly. 01/10/2021 Active omeprazole OTC (PriLOSEC OTC) 20 MG EC tablet Take 1 tablet (20 mg) by mouth daily. Do not crush, chew, or split. Active aspirin 81 MG EC tablet Take 1 tablet (81 mg total) by mouth 1 (one) time each day in the evening. 30 tablet 2 02/28/2021 Active Symbicort 160-4.5 MCG/ACT inhaler Inhale 2 puffs 2 (two) times a day. 01/01/2023 Active albuterol 108 (90 Base) MCG/ACT inhaler inhale one to two puffs by mouth every 4 hours as needed Active ergocalciferol 1.25 MG (54320 UT) capsule TAKE ONE CAPSULE BY MOUTH WEEKLY FOR 90 DAYS 05/04/2024 Active Active Problems Problem Noted Date Diagnosed Date HTN (hypertension) 01/29/2021 Overview (02/28/2021): Continue home coreg High cholesterol 01/29/2021 Overview (02/28/2021): Continue simvastatin Antiplatelet or antithrombotic long-term use 05/2020 Gastroesophageal reflux disease 01/29/2021 Chronic obstructive pulmonary disease 01/29/2021 Good tolerance for activity 01/29/2021 Iliac aneurysm 01/29/2021 Overview (02/28/2021): S/p stents with Dr. Walker 02/27/2021 Abdominal aortic aneurysm (AAA) without rupture 01/29/2021 Overview (02/28/2021): S/P EVAR with iliac stents with Dr. Walker 02/27/2021 Continue plavix, simvastatin Start asa AAA (abdominal aortic aneurysm, ruptured) 2020 Overview (01/20/2021): Added automatically from request for surgery [id number] Encounters Date Type Department Care Team Description 11/24/2024 Telephone [facility] [address], [address] [address] Mitali Joseph RN 11/24/2024 Telephone [facility] [address], [address] [place] [address] Mitali Joseph RN from Last 3 Months Family History Medical History Relation Name Comments abdominal aortic aneurysm (AAA) Mother Anesthesia problems Neg Hx Malig Hyperthermia Neg Hx Relation Name Status Comments Mother Social History Tobacco Use Types Packs/Day Years Used Date Smoking Tobacco: Every Day Cigarettes 1 48 Passive Smoke Exposure: Current Smokeless Tobacco: Never Tobacco Cessation:Ready to Q uit: No; Counseling Given: No Alcohol Use Standard Drinks/Week Comments Not Currently 0 (1 standard drink = 0.6 oz pur e alcohol) PHQ-2 Answer Date Recorded Patient Health Questionnaire-2 Score 0 04/26/2023 Sex and Gender Information Value Date Recorded Sex Assigned at Male 02/20/2021 8:58 AM EST Legal Sex Male 8:43 PM EDT Gender Identity Male 02/20/2021 8:58 AM EST Sexual Orientation Straight 02/20/2021 8: 58 AM EST Last Filed Vital Signs Vital Sign Reading Time Taken Comments Blood Pressure 135/67 06/02/2024 10:57 AM EST Pulse 77 06/02/2024 10:44 AM EST Temperature 36.6 C (97.8 F) 06/02/2024 10:44 AM EST Respiratory Rate 16 02/28/2021 12:00 PM EST Oxygen Saturation 92% 06/02/2024 10:44 AM EST Inhaled Oxygen Concentration - - Weight 91 kg (200 lb 9.9 oz) 06/02/2024 10:44 AM EST Height 181.6 cm (5' 11.5 ) 06/02/2024 10:[address] Body Mass Index 27.59 06/02/2024 10:44 AM EST Plan of Treatment Upcoming Encounters Date Type Department Care Team (Late st Contact Info) Description 06/01/2025 8:30 AM EST Appointment [facility] [address] [place] [address] 06/01/2025 9:00 AM EST Appointment [facility] [address], [address] [place] [address] 06/01/2025 9:30 AM EST Appointment [facility] [address], [address] [place] [address] 06/01/2025 10:40 AM EST Office Visit [facility] [address], [address] [place] [address] Fabricio Walker MD [address] [facility] [address] [place] [address] Health Maintenance Due Date Last Done Comments [facility]-Hepatitis C Screening 1955 [facility]-Medicare Annual Wellness (AWV) 1955 [facility]-/Child/Adol SDOH Screenings 1955 [facility]- SDOH Screenings 1974 [facility]-Adult SDOH Screenings 1974 [facility]-DTaP,Tdap,and Td Vaccine s (1 - Tdap) 10/05/1975 [facility]-Pneumococcal Vaccine: 50 + Years (1 of 2 - PCV) 10/05/1975 CT Colonography 2001 Colonoscopy 2001 FIT-DNA 2001 FIT 2001 FOBT 2001 Sigmoidoscopy 2001 [facility]-Colorectal Cancer Screening 2001 [facility]-Zoster Vaccines (1 of 2) 2006 [facility]-Lung Cancer Screening 05/15/2021 05/15/2020 [facility]-Abdominal Aortic Aneurys m (AAA) Screening 2021 [facility]-Depression Screening 04/26/2024 04/26/2023 [facility]-OUOIB-51 Vaccine (3 - season) 2024 04/17/2021, 08/03/2020 [facility]-Influenza Vaccine (#1) 2024 [facility]-RSV Vaccine: 60+ Years o r (1 - 1-dose 75+ series) 10/05/2031 [facility]-Obesity Intervention Completed 025, 04/26/2023 HPV Vaccines Aged Out No longer eligi ble based on patient's age to complete this topic [facility]-HIB Vaccines Aged Out No longer e ligible based on patient's age to complete this topic [facility]-Hepatitis A Vaccines Aged Out No longer eligible based on patient's age to complete this topic [facility]-IPV Vaccines Aged Out No longer e ligible based on patient's age to complete this topic [facility]-Rotavirus Vaccines Aged Out No lo nger eligible based on patient's age to complete this topic Medical Devices Implanted Type Area Ignition Specialist Device Identifier Shelf Expiration Date Model / Serial / Lot 28.5mm Tanja Aortic X 12mm Tanja Iliac X 12cm Length, Excluder Trunk-Ipsilatera l Leg Endoprosthesis, C3 Delivery System Implanted:Qty: 1 on 02/27/2021 by Fabricio Walker MD at [facility] Stent 11/03/2023 [id number] / [id number] / [id number] Stent Graft Iliac [id number] Viabahnbx - [id number] - [id number] Implanted:Qty: 1 on 02/27/2021 by Fabricio Walker MD at [id number] 09/10/2023 [id number] / [id number] / [id number] Stent Graft Iliac [id number] Lviabahnbx - [id number] Implanted:Qty: 1 on 02/27/2021 by Fabricio Walker MD at [id number] 08/29/2023 [id number] / [id number] / [id number] Stent Graft Iliac [id number] Viabahnbx - [id number] Implanted:Qty: 1 on 02/27/2021 by Fabricio Walker MD at [id number] 11/26/2023 [id number] / [id number] / [id number] Health Care Facilities Inspector Bif 32mm Aor Endoprosth Excldr - [id number] Implanted:Qty: 1 on 02/27/2021 by Fabricio Walker MD at [id number] 07/09/2023 [id number] / [id number] / [id number] Stent Graft Iliac [id number] Viabahnbx - [id number] Implanted:Qty: 1 on 02/27/2021 by Fabricio Walker MD at [id number] 10/02/2023 [id number] / [id number] / [id number] Health Care Facilities Inspector Bif 32mm Aor Endoprosth Excldr - [id number] Implanted:Qty: 1 on 02/27/2021 by Fabricio Walker MD at [id number] 09/15/2023 [id number] / [id number] / [id number] Stent Exp Bili Ld 7 X 57 - [id number] Implanted:Qty: 1 on 02/27/2021 by Fabricio Walker MD at [facility]-[id number] 02/08/2023 [id number] / [id number] Procedures Procedure Name Priority Date/Time Associated Diagnosis Comments CT ANGIO CHEST Routine 05/15/2020 9:49 PM EST from Last 3 Months or Most Recently Relevant to Health Maintenance Results * CT Angio Chest (05/15/2020 9:49 PM EST) Anatomical Region Laterality Modality Chest Computed Tomogra phy Narrative 05/15/2020 10:18 PM EST REQUESTING PHYSICIAN: TYREE CORRALES REASON FOR EXAMINATION/PROCEDURE: RAD PDP:Y * AAA EXAMINATION / PROCEDURE: CTA Chest May 15 2020:49; CTA Abdomen & Pelvis May 15 2020:49; CLINICAL INDICATION: RAD PDP:Y * AAA T ECHNIQUE: Imaging of the chest abdomen and pelvis was performed, from thoracic inlet through pubic symphysis, using spiral technique, following administration of IV contrast, Omnipaque 350, 100 mL according to the CTA thoracic aorta/chest and CTA Abdomen/Pelvis protocol. Reformatted images in the coronal, sagittal, and oblique planes were generated from the axial data set to facilitate diagnostic accuracy. In addition, 3D images were created and reviewed. Total DLP (Dose-Length Pr oduct): 2379.16 mGy.cm. Please note: The reported value represents the total of one or more individual components during the CT acquisition on this date and at this time, and as such, the same value may appear in more than one CT report dependin g on the interpreting/reporting physicians. COMPARISON: Prior outside examination performed on May 15, 2019 FINDINGS: Chest: Aorta/Vessels: No acute thoracic aortic pathology. Calcified and noncalcified at this chronic disease is present within the thoracic aorta which remains normal in caliber. No periaortic hematoma. No filling defect within the pulmonary arteries to suggest pulmonary embolism. Pleural/Pericardial Space: No pneumothorax. No pleural effusions. No pe ricardial effusion. Lymph Nodes: No lymphadenopathy within the chest. Lungs: Mild diffuse bronchial wall thickening which may represent changes of chronic bronchitis. Mild bibasilar atelectasis. Mediastinum: Coronary artery calcifications. Chest wall: No chest wall hematoma or contusion. Bones: No acute fracture within the chest. Abdomen: Vessels: A large infrarenal abdominal aorta is present with discontinuity of the wall at the 11:00 position with a large amount of retrope ritoneal hemorrhage compatible with ruptured traumatic aortic aneurysm. The aorta measures 8.3 cm in AP dimension. No active contrast extravasation. The origin of the right renal artery is difficult to identify. Left renal artery origin is pat ent. Celiac and SMA are patent. Inferior mesenteric artery is visualized and appears to reconstitute via collaterals. Bilateral common iliac artery aneurysms. Liver/Gallbladder/Biliary System: The liver demonstrates homogeneous enhancement. Normal Gallbladder. No intra- or extra-hepatic biliary ductal dilatation. Spleen: The spleen enhances homogeneously. Pancreas: The pancreas enhances homogeneously. Adrenals: The adrenals are morphologically unremarkable. Kidneys: The ri ght kidney is atrophic. Delayed enhancement of the superior pole of the right kidney secondary to marked narrowing of the upper pole renal artery. Left kidney is grossly unremarkable. Nonobstructing right renal calculus.. No hydronephrosis. B owel/Mesentery: The small bowel loops are not dilated. The large bowel loops are not dilated. Lymph Nodes: No lymphadenopathy within the abdomen or pelvis. Fluid Survey: Small volume free intraperitoneal fluid. Large retroperitoneal hematoma . Pelvis: The pelvic viscera are unremarkable. Body Wall: Normal. Bones: No acute fracture within the abdomen or pelvis. IMPRESSION: 1. Ruptured abdominal aortic aneurysm with associated large retroperitoneal hematoma. 2. Calcifie d and noncalcified atherosclerotic disease present within the thoracic aorta without evidence of aneurysmal dilatation. 3. Atrophy of the right kidney with hyperperfusion of the upper pole, likely from occlusion/narrowing of a right upper pole branch. 4. Small volume intraperitoneal free fluid. CRITICAL RESULT: Yes COMMUNICATION: These findings were discussed with ER resident on 05/15/2020 10:16 PM by Felicita Arora via phone confirming the patient was already in the operatin g room.. Verified by: FELICITA ARORA M.D. on May 15 2020 10:16P Transcribed by: [facility] on May 15 2020 10:16P Dictated by: FELICITA ARORA M.D. on May 15 2020 10:02P Procedure Note Felicita Arora MD - 07/23/2020 REQUESTING PHYSICIAN: TYREE ECKERLINE REASON FOR EXAMINATION/PROCEDURE: RAD PDP:Y * AAA EXAMINATION / PROCEDURE: CTA Chest May 15 2020:49; CTA Abdomen & Pelvis May 15 2020:49; CLINICAL INDICATION: RAD PDP:Y * AAA T ECHNIQUE: Imaging of the chest abdomen and pelvis was performed, from thoracic inlet through pubic symphysis, using spiral technique, following administration of IV contrast, Omnipaque 350, 100 mL according to the CTA thoracic aorta/chest and CTA Abdomen/Pelvis protocol. Reformatted images in the coronal, sagittal, and oblique planes were generated from the axial data set to facilitate diagnostic accuracy. In addition, 3D images were created and reviewed. Total DLP (Dose-Length Pr oduct): 2379.16 mGy.cm. Please note: The reported value represents the total of one or more individual components during the CT acquisition on this date and at this time, and as such, the same value may appear in more than one CT report dependin g on the interpreting/reporting physicians. COMPARISON: Prior outside examination performed on May 15, 2019 FINDINGS: Chest: Aorta/Vessels: No acute thoracic aortic pathology. Calcified and noncalcified at this chronic disease is present within the thoracic aorta which remains normal in caliber. No periaortic hematoma. No filling defect within the pulmonary arteries to suggest pulmonary embolism. Pleural/Pericardial Space: No pneumothorax. No pleural effusions. No pe ricardial effusion. Lymph Nodes: No lymphadenopathy within the chest. Lungs: Mild diffuse bronchial wall thickening which may represent changes of chronic bronchitis. Mild bibasilar atelectasis. Mediastinum: Coronary artery calcifications. Chest wall: No chest wall hematoma or contusion. Bones: No acute fracture within the chest. Abdomen: Vessels: A large infrarenal abdominal aorta is present with discontinuity of the wall at the 11:00 position with a large amount of retrope ritoneal hemorrhage compatible with ruptured traumatic aortic aneurysm. The aorta measures 8.3 cm in AP dimension. No active contrast extravasation. The origin of the right renal artery is difficult to identify. Left renal artery origin is pat ent. Celiac and SMA are patent. Inferior mesenteric artery is visualized and appears to reconstitute via collaterals. Bilateral common iliac artery aneurysms. Liver/Gallbladder/Biliary System: The liver demonstrates homogeneous enhancement. Normal Gallbladder. No intra- or extra-hepatic biliary ductal dilatation. Spleen: The spleen enhances homogeneously. Pancreas: The pancreas enhances homogeneously. Adrenals: The adrenals are morphologically unremarkable. Kidneys: The ri ght kidney is atrophic. Delayed enhancement of the superior pole of the right kidney secondary to marked narrowing of the upper pole renal artery. Left kidney is grossly unremarkable. Nonobstructing right renal calculus.. No hydronephrosis. B owel/Mesentery: The small bowel loops are not dilated. The large bowel loops are not dilated. Lymph Nodes: No lymphadenopathy within the abdomen or pelvis. Fluid Survey: Small volume free intraperitoneal fluid. Large retroperitoneal hematoma . Pelvis: The pelvic viscera are unremarkable. Body Wall: Normal. Bones: No acute fracture within the abdomen or pelvis. IMPRESSION: 1. Ruptured abdominal aortic aneurysm with associated large retroperitoneal hematoma. 2. Calcifie d and noncalcified atherosclerotic disease present within the thoracic aorta without evidence of aneurysmal dilatation. 3. Atrophy of the right kidney with hyperperfusion of the upper pole, likely from occlusion/narrowing of a right upper pole branch. 4. Small volume intraperitoneal free fluid. CRITICAL RESULT: Yes COMMUNICATION: These findings were discussed with ER resident on 05/15/2020 10:16 PM by Felicita Arora via phone confirming the patient was already in the operatin g room.. Verified by: FELICITA ARORA M.D. on May 15 2020 10:16P Transcribed by: [facility] on May 15 2020 10:16P Dictated by: FELICITA ARORA M.D. on May 15 2020 10:02P Tyree Corrales MD IMG CT PROCEDURES Final R esult from Last 3 Months or Most Recently Relevant to Health Maintenance [place] [phone] Care Teams Mine Exploration Engineer Relationship Specialty Start Date End Date Theresa Hein APRN [address] [place] [address] PCP - General 02/25/21
--- OUTSIDE RECORDS SUMMARY | 2025-01-09 06:55 | XMS_ITS | Encounter Summary ---
Author Organization Healthcare Address [address] [place] [address] Care Team Providers Care Food And Beverage Order Clerk Name Role Phone Theresa Hein APRN Primary Care Provider [phone] Encounter Details Date Type Department Care Team (Late st Contact Info) Description 11/24/2024 Telephone [facility] [address] [facility] 5th Floor [address] [place] [address] Mitali Joseph RN GS - [...] Encounter - Mitali Joseph RN - 11/24/2024 3:33 PM EDT Phone call with patient who give permission for DOT Physical paperwork to be completed and faxed tothe DOT. I will place a copy of the document in the patient's chart after faxing it. No further questions at this time. documented in this encounter Plan of Treatment Upcoming Encounters Date Type Department Care Team (Late st Contact Info) Description 06/01/2025 8:30 AM EST Appointment [facility] [address] [facility] 5th Floor [address] [place] [address] 06/01/2025 9:00 AM EST Appointment [facility] [address] [place] [address] 06/01/2025 9:30 AM EST Appointment [facility] [address] [place] [address] 06/01/2025 10:40 AM EST Office Visit [facility] [address] [place] [address] Fabricio Walker MD [address] [facility] [address] [place] [address] documented as of this encounter Visit Diagnoses Not on filedocumented in this encounter Additional Health Concerns Assessment Noted Time A fall risk assessment has been complete d for the patient 06/02/2024 10:56 AM EST A Body Mass Index follow-up plan has been documented for the patient 06/05/2024 3:33 PM EDT documented as of this encounter Care Teams Food And Beverage Order Clerk Relationship Specialty Start Date End Date Theresa Hein APRN [address] [place] [address] PCP - General 02/25/21 documented as of this encounter
--- OUTSIDE RECORDS SUMMARY | 2025-01-09 06:55 | XMS_ITS | Data Portability ---
Author Organization [employer] [facility] Address [address] [place] [address] Assessment No assessment recorded. Plan of Treatment Reminders Order Date Submit Date Provider Last Modified By Organization Details Last Modified Time Details Appointments FOLLOW UP 30 2025 08:00A M Anna Marie Hein APRN Not available Not available Not available Lab CBC w/ auto diff [address] [facility]), [address] [place], [address], 12/30/2024 07:08:14 CMP, serum or plasma [address] [facility]), [address] [place], [address], 12/30/2024 07:08:14 TSH + free T4, serum [address] [facility]), [address] [place], [address], 12/30/2024 07:08:13 PSA, total, serum or plasma [address] [facility], [address] [place], [address], 12/30/2024 07:08:16 lipid panel, serum [address] [facility]), [facility] [place] [place], [address], 12/30/2024 07:08:15 HbA1c (hemoglob in A1c), blood [address] [facility]), [address] [place], [address], 12/30/2024 07:08:15 ca 125, serum [address] [facility]), [address] [place], [address], 12/30/2024 07:08:16 vitamin D, 25-hydrox y, total, serum [address] [facility]), [address] [place], [address], 12/30/2024 07:08:16 noninvasi ve colorecta l cancer DNA + occult blood screening , QL, stool 2024 025 [facility], [address], [address], [place], [address], 12/29/2024 09:55:19 iron + TIBC + ferritin, serum [address] [facility]), [address] [place], [address], 12/30/2024 07:08:13 cobalamin and folate panel, serum [address] [facility]), [address] [place], [address], 12/30/2024 07:08:15 lipid panel, serum [address] [facility]), [address] [place], [address], 09/23/2024 07:07:17 CBC w/ auto diff [address] [facility]), [address] [place], [address], 09/23/2024 07:07:16 CMP, serum or plasma [address] [facility]), [address] [place], [address], 09/23/2024 07:07:16 TSH + free T4, serum [address] [facility]), [address] [place], [address], 09/23/2024 07:07:15 cobalamin and folate panel, serum [address] [facility]), [address] [place], [address], 09/23/2024 07:07:18 vitamin D, 25-hydrox y, total, serum [address] [facility]), [address] [place], [address], 09/23/2024 07:07:19 HbA1c (hemoglob in A1c), blood [address] [facility]), [address] [place], [address], 09/23/2024 07:07:19 Hepatitis C IgG Ab, qual, serum [address] [facility]), [address] [place], [address], 09/23/2024 07:07:18 lipid panel, serum [address] [facility]), [address] [place], [address], 04/01/2024 08:11:36 CBC w/ auto diff [address] [facility]), [address] [place] [address], [address], 04/01/2024 08:11:34 CMP, serum or plasma [address] [facility]), [address] [place], [address], 04/01/2024 08:11:35 TSH + free T4, serum [address] [facility]), [address] [place], [address], 04/01/2024 08:11:34 HbA1c (hemoglob in A1c), blood [address] [facility]), [address] [place], [address], 04/01/2024 08:11:37 cobalamin and folate panel, serum [address] [facility]), [address] [place], [address], 04/01/2024 08:11:37 vitamin D, 25-hydrox y, total, serum [address] [facility]), [address] [place], [address], 04/01/2024 08:11:39 PSA, total, serum or plasma [address] [facility]), [address] [place], [address], 04/01/2024 08:11:38 Referral None recorded. Procedures cryosurge ry (PROC) 2024 025 Not available 09/22/2024 10:27:00 Surgeries None recorded. Imaging LDCT, chest, for lung cancer screening [address] ([facility]), [address], [place], [address], 01/05/2025 09:15:58 Medication Orders carvedilo l 6.25 mg tablet 2024 [facility], [address] [place] [address], [address], 12/30/2024 09:24:51 clopidogr el 75 mg tablet 2024 [facility], [address] [place] [address], [address], 12/30/2024 09:24:53 lisinopri l 20 mg-hydroc hlorothia zide 12.5 mg tablet 2024 [facility], [address] [place] [address], [address], 12/30/2024 09:24:52 simvastat in 40 mg tablet 2024 [facility], [address] [place] [address], [address], 12/30/2024 09:24:50 ergocalci ferol (vitamin D2) 1,250 mcg (50,000 unit) capsule 2024 [facility], [address] [place] [address], [address], 12/30/2024 09:24:50 omeprazol e 40 mg capsule,d elayed release 2024 [facility], [address] [place] [address], [address], 12/30/2024 09:24:51 simvastat in 40 mg tablet 2024 025 [facility], [address] [place] [address], [address], 12/08/2024 15:20:56 azithromy teri 250 mg tablet 2024 025 [facility], [address] [place] [address], [address], 12/29/2024 08:37:35 prednison e 20 mg tablet [address] [facility], [address] [place] [address], [address], 12/29/2024 08:24:54 ergocalci ferol (vitamin D2) 1,250 mcg (50,000 unit) capsule 2024 025 [facility], [address] [place] [address], [address], 09/27/2024 14:59:22 omeprazol e 40 mg capsule,d elayed release 2024 025 [facility], [address] [place] [address], [address], 09/23/2024 11:36:17 carvedilo l 6.25 mg tablet 2024 025 [facility], [address] [place] [address], [address], 09/23/2024 11:36:18 clopidogr el 75 mg tablet 2024 025 [facility], [address] [place] [address], [address], 12/08/2024 15:20:57 lisinopri l 20 mg-hydroc hlorothia zide 12.5 mg tablet 2024 025 [facility], [address] [place] [address], [address], 12/08/2024 15:20:56 simvastat in 40 mg tablet 2024 025 [facility], [address] [place] [address], [address], 09/04/2024 14:56:38 ergocalci ferol (vitamin D2) 1,250 mcg (50,000 unit) capsule 2024 025 [facility], [address] [place] [address], [address], 09/04/2024 14:56:41 omeprazol e 40 mg capsule,d elayed release 2024 025 [facility], [address] [place] [address], [address], 09/04/2024 14:56:41 carvedilo l 6.25 mg tablet 2024 025 [facility], [address] [place] [address], [address], 08/05/2024 11:32:31 clopidogr el 75 mg tablet 2024 025 [facility], [address] [place] [address], [address], 09/04/2024 14:56:40 lisinopri l 20 mg-hydroc hlorothia zide 12.5 mg tablet 2024 025 [facility], [address] [place] [address], [address], 09/04/2024 14:56:39 Depo-Medr ol 80 mg/mL suspensio n for injection 2024 025 Not available 09/22/2024 08:38:40 simvastat in 40 mg tablet 2024 025 [facility], [address] [place] [address], [address], 06/06/2024 14:56:26 albuterol sulfate HFA 90 mcg/actua tion aerosol inhaler 2024 025 [facility], [address] [place] [address], [address], 08/05/2024 11:32:34 omeprazol e 40 mg capsule,d elayed release 2024 025 [facility], [address] [place] [address], [address], 06/06/2024 14:56:26 carvedilo l 6.25 mg tablet 2024 025 [facility], [address] [place] [address], [address], 05/05/2024 15:49:26 clopidogr el 75 mg tablet 2024 025 [facility], [address] [place] [address], [address], 06/06/2024 14:56:25 lisinopri l 20 mg-hydroc hlorothia zide 12.5 mg tablet 2024 025 [facility], [address] [place] [address], [address], 06/06/2024 14:56:27 simvastat in 40 mg tablet 2023 024 [facility], [address] [place] [address], [address], 03/07/2024 17:27:49 omeprazol e 40 mg capsule,d elayed release 2023 024 [facility], [address] [place] [address], [address], 12/31/2023 14:47:44 carvedilo l 6.25 mg tablet 2023 024 [facility], [address] [place] [address], [address], 12/31/2023 14:47:44 clopidogr el 75 mg tablet 2023 [facility], [address] [place] [address], [address], 03/07/2024 17:27:50 lisinopri l 20 mg-hydroc hlorothia zide 12.5 mg tablet 2023 [facility], [address] [place] [address], [address], 03/07/2024 17:27:50 albuterol sulfate HFA 90 mcg/actua tion aerosol inhaler 2023 [facility], [address] [place] [address], [address], 10/19/2024 15:10:52 Patient TargetsNo targets recorded. Patient InstructionsNo instructions recorded. Reason for Referral None Reported. Results Created Date Observation Date Name Description Value Unit Range Abnormal Flag Note LastModifiedBy Organization Detail LastModifiedTime 03/31/1904/01/2024 TSH+F REE T4 TSH 1.470 uIU/m L 0.450- 4.500 normal Not Available [facility] ([facility]) [address] [place], [address], 04/01/2024 08:11:34 03/31/1904/01/2024 TSH+F REE T4 T4,free(dire ct) 1.16 NG/dL 0.82-1 .77 normal Not Available [facility] ([facility]) [address] [place], [address], 04/01/2024 08:11:34 03/31/19 25 04/01/2024 CBC WITH DIFFE RENTI AL/PL ATELE T WBC 8.9 x10e3 /uL 3.4-10 .8 normal Not Available [facility] ([facility]) [address] [facility], [place], [address], 04/01/2024 08:11:34 03/31/1904/01/2024 CBC WITH DIFFE RENTI AL/PL ATELE T RBC 4.50 x10e6 /uL 4.14-5 .80 normal Not Available [facility] ([facility]) [address] [facility], [place], [address], 04/01/2024 08:11:34 03/31/19 25 04/01/2024 CBC WITH DIFFE RENTI AL/PL ATELE T hemoglobin 13.1 g/dL 13.0-1 7.7 normal Not Available [facility] ([facility]) [address] [facility], [place], [address], 04/01/2024 08:11:34 03/31/1904/01/2024 CBC WITH DIFFE RENTI AL/PL ATELE T hematocrit 40.2 % 37.5-5 1.0 normal Not Available [facility] ([facility]) [address] [place], [address], 04/01/2024 08:11:34 03/31/19 25 04/01/2024 CBC WITH DIFFE RENTI AL/PL ATELE T MCV 89 fL 79-97 normal Not Available [facility] ([facility]) [address] [place], [address], 04/01/2024 08:11:34 03/31/1904/01/2024 CBC WITH DIFFE RENTI AL/PL ATELE T MCH 29.1 pg 26.6-3 3.0 normal Not Available [facility] ([facility]) [address] [place], [address], 04/01/2024 08:11:34 03/31/19 25 04/01/2024 CBC WITH DIFFE RENTI AL/PL ATELE T MCHC 32.6 g/dL 31.5-3 5.7 normal Not Available [facility] ([facility]) [address] [facility], [place], [address], 04/01/2024 08:11:34 03/31/19 25 04/01/2024 CBC WITH DIFFE RENTI AL/PL ATELE T RDW 12.9 % 11.6-1 5.4 Not Available [facility] ([facility]) [address] [facility], [place], [address], 04/01/2024 08:11:34 03/31/19 25 04/01/2024 CBC WITH DIFFE RENTI AL/PL ATELE T platelets 234 x10e3 /uL 150-45 0 normal Not Available [facility] ([facility]) [address] [facility], [place], [address], 04/01/2024 08:11:34 03/31/19 25 04/01/2024 CBC WITH DIFFE RENTI AL/PL ATELE T neutrophils 63 % not estab. normal Not Available [facility] ([facility]) [address] [facility], [place], [address], 04/01/2024 08:11:34 03/31/19 25 04/01/2024 CBC WITH DIFFE RENTI AL/PL ATELE T lymphs 25 % not estab. normal Not Available [facility] ([facility]) [address] [facility], [place], [address], 04/01/2024 08:11:34 03/31/19 25 04/01/2024 CBC WITH DIFFE RENTI AL/PL ATELE T monocytes 7 % not estab. normal Not Available [facility] ([facility]) [address] [facility], [place], [address], 04/01/2024 08:11:34 03/31/19 25 04/01/2024 CBC WITH DIFFE RENTI AL/PL ATELE T eos 4 % not estab. normal Not Available [facility] ([facility]) [address] [place], [address], 04/01/2024 08:11:34 03/31/19 25 04/01/2024 CBC WITH DIFFE RENTI AL/PL ATELE T basos 1 % not estab. normal Not Available [facility] ([facility]) [address] [facility], [place], [address], 04/01/2024 08:11:34 03/31/19 25 04/01/2024 CBC WITH DIFFE RENTI AL/PL ATELE T immature cells PHYSICIAN PRACTICE MANAGER Not Available [facility] ([facility]) [address] [facility], [place], [address], 04/01/2024 08:11:34 03/31/19 25 04/01/2024 CBC WITH DIFFE RENTI AL/PL ATELE T neutrophils (absolute) 5.6 x10e3 /uL 1.4-7. 0 normal Not Available [facility] ([facility]) [address] [facility], [place], [address], 04/01/2024 08:11:34 03/31/19 25 04/01/2024 CBC WITH DIFFE RENTI AL/PL ATELE T lymphs (absolute) 2.2 x10e3 /uL 0.7-3. 1 normal Not Available [facility] ([facility]) [address] [facility], [place], [address], 04/01/2024 08:11:34 03/31/19 25 04/01/2024 CBC WITH DIFFE RENTI AL/PL ATELE T monocytes(ab solute) 0.6 x10e3 /uL 0.1-0. 9 normal Not Available [facility] ([facility]) [address] [place], [address], 04/01/2024 08:11:34 03/31/19 25 04/01/2024 CBC WITH DIFFE RENTI AL/PL ATELE T eos (absolute) 0.3 x10e3 /uL 0.0-0. 4 normal Not Available [facility] ([facility]) [address] [facility], [place], [address], 04/01/2024 08:11:34 03/31/19 25 04/01/2024 CBC WITH DIFFE RENTI AL/PL ATELE T baso (absolute) 0.1 x10e3 /uL 0.0-0. 2 normal Not Available [facility] ([facility]) [address] [facility], [place], [address], 04/01/2024 08:11:34 03/31/19 25 04/01/2024 CBC WITH DIFFE RENTI AL/PL ATELE T immature granulocytes 0 % not estab. Not Available [facility] ([facility]) [address] [facility], [place], [address], 04/01/2024 08:11:34 03/31/19 25 04/01/2024 CBC WITH DIFFE RENTI AL/PL ATELE T immature grans (abs) 0.0 x10e3 /uL 0.0-0. 1 Not Available [facility] ([facility]) [address] [facility], [place], [address], 04/01/2024 08:11:34 03/31/19 25 04/01/2024 CBC WITH DIFFE RENTI AL/PL ATELE T NRBC PHYSICIAN PRACTICE MANAGER Not Available [facility] ([facility]) [address] [facility], [place], [address], 04/01/2024 08:11:34 03/31/1904/01/2024 CBC WITH DIFFE RENTI AL/PL ATELE T hematology comments: PHYSICIAN PRACTICE MANAGER Not Available [facility] ([facility]) [address] [facility], [place], [address], 04/01/2024 08:11:34 03/31/19 25 04/01/2024 COMP. METAB OLIC PANEL (14) glucose 90 mg/dL 70-99 normal Not Available [facility] ([facility]) [address] [place], [address], 04/01/2024 08:11:35 03/31/19 25 04/01/2024 COMP. METAB OLIC PANEL (14) BUN 20 mg/dL 8-27 normal Not Available [facility] ([facility]) [address] [facility] [place], [address], 04/01/2024 08:11:35 03/31/19 25 04/01/2024 COMP. METAB OLIC PANEL (14) creatinine 1.32 mg/dL 0.76-1 .27 above high normal Not Available [facility] ([facility]) [address] [facility] [place], [address], 04/01/2024 08:11:35 03/31/19 25 04/01/2024 COMP. METAB OLIC PANEL (14) eGFR 59 mL/mi n/1.7 3 >59 below low normal Not Available [facility] ([facility]) [address] [facility], [place], [address], 04/01/2024 08:11:35 03/31/19 25 04/01/2024 COMP. METAB OLIC PANEL (14) BUN/creatini ne ratio 15 10-24 normal Not Available [facility] ([facility]) [address] [facility] [place], [address], 04/01/2024 08:11:35 03/31/19 25 04/01/2024 COMP. METAB OLIC PANEL (14) sodium 141 mmol/ L 134-14 4 normal Not Available [facility] ([facility]) [address] [facility] [place], [address], 04/01/2024 08:11:35 03/31/19 25 04/01/2024 COMP. METAB OLIC PANEL (14) potassium 4.0 mmol/ L 3.5-5. 2 normal Not Available [facility] ([facility]) [address] [facility] [place], [address], 04/01/2024 08:11:35 03/31/19 25 04/01/2024 COMP. METAB OLIC PANEL (14) chloride 98 mmol/ L 96-106 normal Not Available [facility] ([facility]) [address] [facility] [place], [address], 04/01/2024 08:11:35 03/31/19 25 04/01/2024 COMP. METAB OLIC PANEL (14) carbon dioxide, total 29 mmol/ L 20-29 normal Not Available [facility] ([facility]) [address] [facility], [place], [address], 04/01/2024 08:11:35 03/31/19 25 04/01/2024 COMP. METAB OLIC PANEL (14) calcium 9.1 mg/dL 8.6-10 .2 normal Not Available [facility] ([facility]) [address] [facility], [place], [address], 04/01/2024 08:11:35 03/31/19 25 04/01/2024 COMP. METAB OLIC PANEL (14) protein, total 6.7 g/dL 6.0-8. 5 normal Not Available [facility] ([facility]) [address] [facility], [place], [address], 04/01/2024 08:11:35 03/31/19 25 04/01/2024 COMP. METAB OLIC PANEL (14) albumin 4.0 g/dL 3.9-4. 9 normal Not Available [facility] ([facility]) [address] [facility] [place], [address], 04/01/2024 08:11:35 03/31/19 25 04/01/2024 COMP. METAB OLIC PANEL (14) globulin, total 2.7 g/dL 1.5-4. 5 Not Available [facility] ([facility]) [address] [facility], [place], [address], 04/01/2024 08:11:35 03/31/19 25 04/01/2024 COMP. METAB OLIC PANEL (14) bilirubin, total 0.3 mg/dL 0.0-1. 2 normal Not Available [facility] ([facility]) [address] [facility] [place], [address], 04/01/2024 08:11:35 03/31/19 25 04/01/2024 COMP. METAB OLIC PANEL (14) alkaline phosphatase 88 IU/L 44-121 normal Not Available [facility] ([facility]) [address] [facility] [place], [address], 04/01/2024 08:11:35 03/31/19 25 04/01/2024 COMP. METAB OLIC PANEL (14) AST (SGOT) 18 IU/L 0-40 normal Not Available [facility] ([facility]) [address] [facility] [place], [address], 04/01/2024 08:11:35 03/31/19 25 04/01/2024 COMP. METAB OLIC PANEL (14) ALT (SGPT) 14 IU/L 0-44 normal Not Available [facility] ([facility]) [address] [place], [address], 04/01/2024 08:11:35 03/31/19 25 04/01/2024 LIPID PANEL cholesterol, total 162 mg/dL 100-19 9 normal Not Available [facility] ([facility]) [address] [place], [address], 04/01/2024 08:11:36 03/31/19 25 04/01/2024 LIPID PANEL triglyceride s 110 mg/dL 0-149 normal Not Available [facility] ([facility]) [address] [place], [address], 04/01/2024 08:11:36 03/31/19 25 04/01/2024 LIPID PANEL HDL cholesterol 32 mg/dL >39 below low normal Not Available [facility] ([facility]) [address] [place], [address], 04/01/2024 08:11:36 03/31/19 25 04/01/2024 LIPID PANEL VLDL cholesterol aurelio 20 mg/dL 5-40 Not Available [facility] ([facility]) [address], [place], [address], 04/01/2024 08:11:36 03/31/19 25 04/01/2024 LIPID PANEL LDL chol calc ([facility]) 110 mg/dL 0-99 above high normal Not Available [facility] ([facility]) [address], [place], [address], 04/01/2024 08:11:36 03/31/19 25 04/01/2024 LIPID PANEL LDL calc comment: PHYSICIAN PRACTICE MANAGER Not Available [facility] ([facility]) [address], [place], [address], 04/01/2024 08:11:36 03/31/19 25 04/01/2024 VITAM IN B12 AND FOLAT E vitamin B12 387 pg/mL 232-12 45 normal Not Available [facility] ([facility]) [address], [place], [address], 04/01/2024 08:11:37 03/31/19 25 04/01/2024 VITAM IN B12 AND FOLAT E folate (folic acid), serum 3.3 NG/mL >3.0 normal A serum folat e ginny ntrat ion of less than 3.1 ng/mL is consi dered to repre sent clini aurelio defic iency . Not Available [facility] ([facility]) [address], [place], [address], 04/01/2024 08:11:37 03/31/19 25 04/01/2024 HEMOG LOBIN A1C hemoglobin A1C 5.8 % 4.8-5. 6 above high normal Predi abete s: 5.7 - 6.4 Diabe braden: >6.4 Glyce nicko contr ol for adult s with diabe braden: <7.0 Not Available [facility] ([facility]) [address] [facility], [place], [address], 04/01/2024 08:11:37 03/31/19 25 04/01/2024 PROST ATE-S PECIF IC AG prostate specific Ag 1.2 NG/mL 0.0-4. 0 normal Tawn ECLIA metho dolog y. Accor ding to [...] or kits canno t be used inter marquez eably . Resul ts canno t be inter prete d as absol [place] evide nce of the prese nce or absen ce of kalyn mora se. Not Available [facility] ([facility]) [address] [facility], [place], [address], 04/01/2024 08:11:38 03/31/19 25 04/01/2024 VITAM IN D, 25-HY DROXY vitamin D, 25-hydroxy 16.5 NG/mL 30.0-1 00.0 below low normal Vitam in D defic iency has been [...] 1. IOM (Inst itute of Medic ine). 2010. Dieta ry refer ence intak es for calci um and D. Jere samson [place]: The [facility]io [facility]al [facility] Press . 2. Holic k [place], Shannan ey [place], Bisch off-F errar i PRATER, et al. Evalu ation , treat ment, and preve ntion of vitam in D defic iency : an Endoc rine Socie ty clini aurelio pract ice guide line. JCEM. 2010; 96(7) :1911 -30. Not Available [facility] ([facility]) [address] [place], [address], 04/01/2024 08:11:39 09/23/1909/23/2024 TSH+F REE T4 TSH 0.926 uIU/m L 0.450- 4.500 normal Not Available [facility] ([facility]) [address] [place], [address], 09/23/2024 07:07:15 09/23/1909/23/2024 TSH+F REE T4 T4,free(dire ct) 1.03 NG/dL 0.82-1 .77 normal Not Available [facility] ([facility]) [address] [place], [address], 09/23/2024 07:07:15 09/23/1909/23/2024 CBC WITH DIFFE RENTI AL/PL ATELE T WBC 10.8 x10e3 /uL 3.4-10 .8 normal Not Available [facility] ([facility]) [address] [place], [address], 09/23/2024 07:07:16 09/23/1909/23/2024 CBC WITH DIFFE RENTI AL/PL ATELE T RBC 4.46 x10e6 /uL 4.14-5 .80 normal Not Available [facility] ([facility]) [address] [place], [address], 09/23/2024 07:07:16 09/23/19 25 09/23/2024 CBC WITH DIFFE RENTI AL/PL ATELE T hemoglobin 12.7 g/dL 13.0-1 7.7 below low normal Not Available [facility] ([facility]) [address] [place], [address], 09/23/2024 07:07:16 09/23/1909/23/2024 CBC WITH DIFFE RENTI AL/PL ATELE T hematocrit 41.1 % 37.5-5 1.0 normal Not Available [facility] ([facility]) [address] [place], [address], 09/23/2024 07:07:16 09/23/1909/23/2024 CBC WITH DIFFE RENTI AL/PL ATELE T MCV 92 fL 79-97 normal Not Available [facility] ([facility]) [address] [facility] [place], [place], [address], 09/23/2024 07:07:16 09/23/1909/23/2024 CBC WITH DIFFE RENTI AL/PL ATELE T MCH 28.5 pg 26.6-3 3.0 normal Not Available [facility] ([facility]) [address] [place], [address], 09/23/2024 07:07:16 09/23/19 25 09/23/2024 CBC WITH DIFFE RENTI AL/PL ATELE T MCHC 30.9 g/dL 31.5-3 5.7 below low normal Not Available [facility] ([facility]) [address] [place], [address], 09/23/2024 07:07:16 09/23/1909/23/2024 CBC WITH DIFFE RENTI AL/PL ATELE T RDW 13.8 % 11.6-1 5.4 Not Available [facility] ([facility]) [address] [place], [address], 09/23/2024 07:07:16 09/23/19 25 09/23/2024 CBC WITH DIFFE RENTI AL/PL ATELE T platelets 275 x10e3 /uL 150-45 0 normal Not Available [facility] ([facility]) [address] [facility] [address], [place], [address], 09/23/2024 07:07:16 09/23/19 25 09/23/2024 CBC WITH DIFFE RENTI AL/PL ATELE T neutrophils 66 % not estab. normal Not Available [facility] ([facility]) [address] [facility] [address], [place], [address], 09/23/2024 07:07:16 09/23/19 25 09/23/2024 CBC WITH DIFFE RENTI AL/PL ATELE T lymphs 21 % not estab. normal Not Available [facility] ([facility]) [address] [facility] [address], [place], [address], 09/23/2024 07:07:16 09/23/19 25 09/23/2024 CBC WITH DIFFE RENTI AL/PL ATELE T monocytes 8 % not estab. normal Not Available [facility] ([facility]) [address] [facility] [address], [place], [address], 09/23/2024 07:07:16 09/23/19 25 09/23/2024 CBC WITH DIFFE RENTI AL/PL ATELE T eos 4 % not estab. normal Not Available [facility] ([facility]) [address] [facility] [address], [place], [address], 09/23/2024 07:07:16 09/23/19 25 09/23/2024 CBC WITH DIFFE RENTI AL/PL ATELE T basos 1 % not estab. normal Not Available [facility] ([facility]) [address] [place], [address], 09/23/2024 07:07:16 09/23/19 25 09/23/2024 CBC WITH DIFFE RENTI AL/PL ATELE T immature cells PHYSICIAN PRACTICE MANAGER Not Available [facility] ([facility]) [address] [place], [address], 09/23/2024 07:07:16 09/23/19 25 09/23/2024 CBC WITH DIFFE RENTI AL/PL ATELE T neutrophils (absolute) 7.2 x10e3 /uL 1.4-7. 0 above high normal Not Available [facility] ([facility]) [address] [place], [address], 09/23/2024 07:07:16 09/23/19 25 09/23/2024 CBC WITH DIFFE RENTI AL/PL ATELE T lymphs (absolute) 2.2 x10e3 /uL 0.7-3. 1 normal Not Available [facility] ([facility]) [address] [place], [address], 09/23/2024 07:07:16 09/23/19 25 09/23/2024 CBC WITH DIFFE RENTI AL/PL ATELE T monocytes(ab solute) 0.8 x10e3 /uL 0.1-0. 9 normal Not Available [facility] ([facility]) [address] [place], [address], 09/23/2024 07:07:16 09/23/19 25 09/23/2024 CBC WITH DIFFE RENTI AL/PL ATELE T eos (absolute) 0.5 x10e3 /uL 0.0-0. 4 above high normal Not Available [facility] ([facility]) [address] [place], [address], 09/23/2024 07:07:16 09/23/19 25 09/23/2024 CBC WITH DIFFE RENTI AL/PL ATELE T baso (absolute) 0.1 x10e3 /uL 0.0-0. 2 normal Not Available [facility] ([facility]) [address] [place], [address], 09/23/2024 07:07:16 09/23/19 25 09/23/2024 CBC WITH DIFFE RENTI AL/PL ATELE T immature granulocytes 0 % not estab. Not Available [facility] ([facility]) [address] [facility] [address], [place], [address], 09/23/2024 07:07:16 09/23/19 25 09/23/2024 CBC WITH DIFFE RENTI AL/PL ATELE T immature grans (abs) 0.0 x10e3 /uL 0.0-0. 1 Not Available [facility] ([facility]) [address] [facility] [address], [place], [address], 09/23/2024 07:07:16 09/23/19 25 09/23/2024 CBC WITH DIFFE RENTI AL/PL ATELE T NRBC PHYSICIAN PRACTICE MANAGER Not Available [facility] ([facility]) [address] [facility] [address], [place], [address], 09/23/2024 07:07:16 09/23/19 25 09/23/2024 CBC WITH DIFFE RENTI AL/PL ATELE T hematology comments: PHYSICIAN PRACTICE MANAGER Not Available [facility] ([facility]) [address] [facility] [address], [place], [address], 09/23/2024 07:07:16 09/23/19 25 09/23/2024 COMP. METAB OLIC PANEL (14) glucose 85 mg/dL 70-99 normal Not Available [facility] ([facility]) [address] [facility] [address], [place], [address], 09/23/2024 07:07:16 09/23/19 25 09/23/2024 COMP. METAB OLIC PANEL (14) BUN 13 mg/dL 8-27 normal Not Available [facility] ([facility]) [address] [facility] [address], [place], [address], 09/23/2024 07:07:16 09/23/19 25 09/23/2024 COMP. METAB OLIC PANEL (14) creatinine 1.15 mg/dL 0.76-1 .27 normal Not Available [facility] ([facility]) [address] [facility] [address], [place], [address], 09/23/2024 07:07:16 09/23/19 25 09/23/2024 COMP. METAB OLIC PANEL (14) eGFR 70 mL/mi n/1.7 3 >59 normal Not Available [facility] ([facility]) [address] [facility] [address], [place], [address], 09/23/2024 07:07:16 09/23/19 25 09/23/2024 COMP. METAB OLIC PANEL (14) BUN/creatini ne ratio 11 10-24 normal Not Available [facility] ([facility]) [address] [facility] [address], [place], [address], 09/23/2024 07:07:16 09/23/19 25 09/23/2024 COMP. METAB OLIC PANEL (14) sodium 139 mmol/ L 134-14 4 normal Not Available [facility] ([facility]) [address] [facility] [address], [place], [address], 09/23/2024 07:07:16 09/23/19 25 09/23/2024 COMP. METAB OLIC PANEL (14) potassium 4.0 mmol/ L 3.5-5. 2 normal Not Available [facility] ([facility]) [address] [facility] [address], [place], [address], 09/23/2024 07:07:16 09/23/19 25 09/23/2024 COMP. METAB OLIC PANEL (14) chloride 98 mmol/ L 96-106 normal Not Available [facility] ([facility]) [address] [facility] [address], [place], [address], 09/23/2024 07:07:16 09/23/19 25 09/23/2024 COMP. METAB OLIC PANEL (14) carbon dioxide, total 25 mmol/ L 20-29 normal Not Available [facility] ([facility]) [address] [facility] [address], [place], [address], 09/23/2024 07:07:16 09/23/19 25 09/23/2024 COMP. METAB OLIC PANEL (14) calcium 9.4 mg/dL 8.6-10 .2 normal Not Available [facility] ([facility]) [address] [facility] [place], [address], 09/23/2024 07:07:16 09/23/19 25 09/23/2024 COMP. METAB OLIC PANEL (14) protein, total 7.0 g/dL 6.0-8. 5 normal Not Available [facility] ([facility]) [address], [place], [address], 09/23/2024 07:07:16 09/23/19 25 09/23/2024 COMP. METAB OLIC PANEL (14) albumin 4.2 g/dL 3.9-4. 9 normal Not Available [facility] ([facility]) [address] [facility] [place], [address], 09/23/2024 07:07:16 09/23/19 25 09/23/2024 COMP. METAB OLIC PANEL (14) globulin, total 2.8 g/dL 1.5-4. 5 Not Available [facility] ([facility]) [address] [facility] [place], [address], 09/23/2024 07:07:16 09/23/19 25 09/23/2024 COMP. METAB OLIC PANEL (14) bilirubin, total 0.5 mg/dL 0.0-1. 2 normal Not Available [facility] ([facility]) [address] [facility] [place], [address], 09/23/2024 07:07:16 09/23/19 25 09/23/2024 COMP. METAB OLIC PANEL (14) alkaline phosphatase 89 IU/L 44-121 normal Not Available [facility] ([facility]) [address] [facility] [address], [place], [address], 09/23/2024 07:07:16 09/23/19 25 09/23/2024 COMP. METAB OLIC PANEL (14) AST (SGOT) 16 IU/L 0-40 normal Not Available [facility] ([facility]) [address] [facility] [place], [address], 09/23/2024 07:07:16 09/23/19 25 09/23/2024 COMP. METAB OLIC PANEL (14) ALT (SGPT) 11 IU/L 0-44 normal Not Available [facility] ([facility]) [address] [place], [address], 09/23/2024 07:07:16 09/23/19 25 09/23/2024 LIPID PANEL cholesterol, total 129 mg/dL 100-19 9 normal Not Available [facility] ([facility]) [address] [place], [address], 09/23/2024 07:07:17 09/23/19 25 09/23/2024 LIPID PANEL triglyceride s 146 mg/dL 0-149 normal Not Available [facility] ([facility]) [address] [place], [address], 09/23/2024 07:07:17 09/23/19 25 09/23/2024 LIPID PANEL HDL cholesterol 38 mg/dL >39 below low normal Not Available [facility] ([facility]) [address] [place], [address], 09/23/2024 07:07:17 09/23/19 25 09/23/2024 LIPID PANEL VLDL cholesterol aurelio 25 mg/dL 5-40 Not Available [facility] ([facility]) [address] [place], [address], 09/23/2024 07:07:17 09/23/19 25 09/23/2024 LIPID PANEL LDL chol calc ([facility]) 66 mg/dL 0-99 Not Available [facility] ([facility]) [address] [place], [address], 09/23/2024 07:07:17 09/23/19 25 09/23/2024 LIPID PANEL LDL calc comment: PHYSICIAN PRACTICE MANAGER Not Available [facility] ([facility]) [address] [facility] [address], [place], [address], 09/23/2024 07:07:17 09/23/19 25 09/23/2024 VITAM IN B12 AND FOLAT E vitamin B12 321 pg/mL 232-12 45 normal Not Available [facility] ([facility]) [address] [facility] [address], [place], [address], 09/23/2024 07:07:18 09/23/19 25 09/23/2024 VITAM IN B12 AND FOLAT E folate (folic acid), serum 5.4 NG/mL >3.0 normal A serum folat e ginny ntrat ion of less than 3.1 ng/mL is consi dered to repre sent clini aurelio defic iency . Not Available [facility] ([facility]) [address] [facility] [address], [place], [address], 09/23/2024 07:07:18 09/23/19 25 09/23/2024 HCV ANTIB SAHARA RFX TO QUANT PCR HCV Ab Non Reacti ve non reacti ve Not Available [facility] ([facility]) [address] [facility] [address], [place], [address], 09/23/2024 07:07:18 09/23/1909/23/2024 HCV ANTIB SAHARA RFX TO QUANT PCR interpretati on: Commen t Not infec michelle with HCV unles s early or acute infec tion is suspe cted (whic h may be delay ed in an immun ocomp romis ed indiv idual ), or other evide nce exist s to indic ate HCV infec tion. Not Available [facility] ([facility]) [address] [facility] [address], [place], [address], 09/23/2024 07:07:18 09/23/19 25 09/23/2024 HEMOG LOBIN A1C hemoglobin A1C 5.9 % 4.8-5. 6 above high normal Predi abete s: 5.7 - 6.4 Diabe braden: >6.4 Glyce nicko contr ol for adult s with diabe braden: <7.0 Not Available [facility] ([facility]) [address] [facility] [address], [place], [address], 09/23/2024 07:07:19 09/23/1909/23/2024 VITAM IN D, 25-HY DROXY vitamin D, 25-hydroxy 62.1 NG/mL 30.0-1 00.0 Vitam in D defic [...] es for calci um and D. Jere samson [place]: The [facility] . 2. Dolores mejía MF, Shannan orellana [place], Valerie off-F antwonar i PRATER, et al. Evalu ation , treat ment, and preve ntion of vitam in D defic iency : an Endoc rine Socie ty clini aurelio pract ice guide line. JCEM. 2010; 96(7) :1911 -30. Not Available [facility] ([facility]) [address] [facility] [address], [place], [address], 09/23/2024 07:07:19 12/30/1912/30/2024 FE+TI BC+FE R iron bind.cap.(TI BC) 373 ug/dL 250-45 0 normal Not Available [facility] ([facility]) [address] [facility] [address], [place], [address], 12/30/2024 07:08:13 12/30/1912/30/2024 FE+TI BC+FE R UIBC 345 ug/dL 111-34 3 above high normal Not Available [facility] ([facility]) [address] [place], [address], 12/30/2024 07:08:13 12/30/1912/30/2024 FE+TI BC+FE R iron 28 ug/dL 38-169 below low normal Not Available [facility] ([facility]) [address] [place], [address], 12/30/2024 07:08:13 12/30/1912/30/2024 FE+TI BC+FE R iron saturation 8 % 15-55 alert low Not Available [facility] ([facility]) [address] [place], [address], 12/30/2024 07:08:13 12/30/1912/30/2024 FE+TI BC+FE R ferritin 90 NG/mL 30-400 normal Not Available [facility] ([facility]) [address] [place], [address], 12/30/2024 07:08:13 12/30/1912/30/2024 TSH+F REE T4 TSH 0.734 uIU/m L 0.450- 4.500 normal Not Available [facility] ([facility]) [address] [place], [address], 12/30/2024 07:08:13 12/30/1912/30/2024 TSH+F REE T4 T4,free(dire ct) 1.15 NG/dL 0.82-1 .77 normal Not Available [facility] ([facility]) [address] [place], [address], 12/30/2024 07:08:13 12/30/19 25 12/30/2024 CBC WITH DIFFE RENTI AL/PL ATELE T WBC 12.8 x10e3 /uL 3.4-10 .8 above high normal Not Available [facility] ([facility]) [address] [facility] [address], [place], [address], 12/30/2024 07:08:14 12/30/1912/30/2024 CBC WITH DIFFE RENTI AL/PL ATELE T RBC 4.66 x10e6 /uL 4.14-5 .80 normal Not Available [facility] ([facility]) [address] [facility] [address], [place], [address], 12/30/2024 07:08:14 12/30/1912/30/2024 CBC WITH DIFFE RENTI AL/PL ATELE T hemoglobin 12.3 g/dL 13.0-1 7.7 below low normal Not Available [facility] ([facility]) [address] [facility], [place], [address], 12/30/2024 07:08:14 12/30/1912/30/2024 CBC WITH DIFFE RENTI AL/PL ATELE T hematocrit 40.0 % 37.5-5 1.0 normal Not Available [facility] ([facility]) [address] [place], [address], 12/30/2024 07:08:14 12/30/19 25 12/30/2024 CBC WITH DIFFE RENTI AL/PL ATELE T MCV 86 fL 79-97 normal Not Available [facility] ([facility]) [address] [place], [address], 12/30/2024 07:08:14 12/30/1912/30/2024 CBC WITH DIFFE RENTI AL/PL ATELE T MCH 26.4 pg 26.6-3 3.0 below low normal Not Available [facility] ([facility]) [address] [place], [address], 12/30/2024 07:08:14 12/30/19 25 12/30/2024 CBC WITH DIFFE RENTI AL/PL ATELE T MCHC 30.8 g/dL 31.5-3 5.7 below low normal Not Available [facility] ([facility]) [address] [facility], [place], [address], 12/30/2024 07:08:14 12/30/1912/30/2024 CBC WITH DIFFE RENTI AL/PL ATELE T RDW 14.5 % 11.6-1 5.4 Not Available [facility] ([facility]) [address] [facility] [address], [place], [address], 12/30/2024 07:08:14 12/30/1912/30/2024 CBC WITH DIFFE RENTI AL/PL ATELE T platelets 258 x10e3 /uL 150-45 0 normal Not Available [facility] ([facility]) [address] [facility], [place], [address], 12/30/2024 07:08:14 12/30/1912/30/2024 CBC WITH DIFFE RENTI AL/PL ATELE T neutrophils 69 % not estab. normal Not Available [facility] ([facility]) [address] [facility] [address], [place], [address], 12/30/2024 07:08:14 12/30/19 25 12/30/2024 CBC WITH DIFFE RENTI AL/PL ATELE T lymphs 19 % not estab. normal Not Available [facility] ([facility]) [address] [facility] [address], [place], [address], 12/30/2024 07:08:14 12/30/19 25 12/30/2024 CBC WITH DIFFE RENTI AL/PL ATELE T monocytes 9 % not estab. normal Not Available [facility] ([facility]) [address] [facility], [place], [address], 12/30/2024 07:08:14 12/30/19 25 12/30/2024 CBC WITH DIFFE RENTI AL/PL ATELE T eos 2 % not estab. normal Not Available [facility] ([facility]) [address] [facility] [address], [place], [address], 12/30/2024 07:08:14 12/30/1912/30/2024 CBC WITH DIFFE RENTI AL/PL ATELE T basos 0 % not estab. normal Not Available [facility] ([facility]) [address] [facility], [place], [address], 12/30/2024 07:08:14 12/30/1912/30/2024 CBC WITH DIFFE RENTI AL/PL ATELE T immature cells PHYSICIAN PRACTICE MANAGER Not Available [facility] ([facility]) [address] [facility], [place], [address], 12/30/2024 07:08:14 12/30/1912/30/2024 CBC WITH DIFFE RENTI AL/PL ATELE T neutrophils (absolute) 8.9 x10e3 /uL 1.4-7. 0 above high normal Not Available [facility] ([facility]) [address] [facility], [place], [address], 12/30/2024 07:08:14 12/30/19 25 12/30/2024 CBC WITH DIFFE RENTI AL/PL ATELE T lymphs (absolute) 2.4 x10e3 /uL 0.7-3. 1 normal Not Available [facility] ([facility]) [address] [place], [address], 12/30/2024 07:08:14 12/30/1912/30/2024 CBC WITH DIFFE RENTI AL/PL ATELE T monocytes(ab solute) 1.2 x10e3 /uL 0.1-0. 9 above high normal Not Available [facility] ([facility]) [address] [facility], [place], [address], 12/30/2024 07:08:14 12/30/19 25 12/30/2024 CBC WITH DIFFE RENTI AL/PL ATELE T eos (absolute) 0.3 x10e3 /uL 0.0-0. 4 normal Not Available [facility] ([facility]) [address] [facility], [place], [address], 12/30/2024 07:08:14 12/30/19 25 12/30/2024 CBC WITH DIFFE RENTI AL/PL ATELE T baso (absolute) 0.0 x10e3 /uL 0.0-0. 2 normal Not Available [facility] ([facility]) [address] [facility], [place], [address], 12/30/2024 07:08:14 12/30/19 25 12/30/2024 CBC WITH DIFFE RENTI AL/PL ATELE T immature granulocytes 1 % not estab. Not Available [facility] ([facility]) [address] [facility], [place], [address], 12/30/2024 07:08:14 12/30/1912/30/2024 CBC WITH DIFFE RENTI AL/PL ATELE T immature grans (abs) 0.1 x10e3 /uL 0.0-0. 1 Not Available [facility] ([facility]) [address] [facility], [place], [address], 12/30/2024 07:08:14 12/30/19 25 12/30/2024 CBC WITH DIFFE RENTI AL/PL ATELE T NRBC PHYSICIAN PRACTICE MANAGER Not Available [facility] ([facility]) [address] [facility], [place], [address], 12/30/2024 07:08:14 12/30/1912/30/2024 CBC WITH DIFFE RENTI AL/PL ATELE T hematology comments: PHYSICIAN PRACTICE MANAGER Not Available [facility] ([facility]) [address] [facility], [place], [address], 12/30/2024 07:08:14 12/30/19 25 12/30/2024 COMP. METAB OLIC PANEL (14) glucose 86 mg/dL 70-99 normal Not Available [facility] ([facility]) [address] [facility], [place], [address], 12/30/2024 07:08:14 12/30/19 25 12/30/2024 COMP. METAB OLIC PANEL (14) BUN 22 mg/dL 8-27 normal Not Available [facility] ([facility]) [address] [facility] [place], [address], 12/30/2024 07:08:14 12/30/19 25 12/30/2024 COMP. METAB OLIC PANEL (14) creatinine 1.17 mg/dL 0.76-1 .27 normal Not Available [facility] ([facility]) [address] [facility] [place], [address], 12/30/2024 07:08:14 12/30/19 25 12/30/2024 COMP. METAB OLIC PANEL (14) eGFR 68 mL/mi n/1.7 3 >59 normal Not Available [facility] ([facility]) [address] [facility], [place], [address], 12/30/2024 07:08:14 12/30/19 25 12/30/2024 COMP. METAB OLIC PANEL (14) BUN/creatini ne ratio 19 10-24 normal Not Available [facility] ([facility]) [address] [facility] [place], [address], 12/30/2024 07:08:14 12/30/19 25 12/30/2024 COMP. METAB OLIC PANEL (14) sodium 136 mmol/ L 134-14 4 normal Not Available [facility] ([facility]) [address] [facility] [place], [address], 12/30/2024 07:08:14 12/30/19 25 12/30/2024 COMP. METAB OLIC PANEL (14) potassium 4.8 mmol/ L 3.5-5. 2 normal Not Available [facility] ([facility]) [address] [facility] [place], [address], 12/30/2024 07:08:14 12/30/19 25 12/30/2024 COMP. METAB OLIC PANEL (14) chloride 96 mmol/ L 96-106 normal Not Available [facility] ([facility]) [address], [place], [address], 12/30/2024 07:08:14 12/30/19 25 12/30/2024 COMP. METAB OLIC PANEL (14) carbon dioxide, total 25 mmol/ L 20-29 normal Not Available [facility] ([facility]) [address], [place], [address], 12/30/2024 07:08:14 12/30/1912/30/2024 COMP. METAB OLIC PANEL (14) calcium 9.1 mg/dL 8.6-10 .2 normal Not Available [facility] ([facility]) [address], [place], [address], 12/30/2024 07:08:14 12/30/19 25 12/30/2024 COMP. METAB OLIC PANEL (14) protein, total 6.4 g/dL 6.0-8. 5 normal Not Available [facility] ([facility]) [address] [facility] [place], [address], 12/30/2024 07:08:14 12/30/19 25 12/30/2024 COMP. METAB OLIC PANEL (14) albumin 3.8 g/dL 3.9-4. 9 below low normal Not Available [facility] ([facility]) [address] [facility], [place], [address], 12/30/2024 07:08:14 12/30/1912/30/2024 COMP. METAB OLIC PANEL (14) globulin, total 2.6 g/dL 1.5-4. 5 Not Available [facility] ([facility]) [address] [facility] [place], [address], 12/30/2024 07:08:14 12/30/19 25 12/30/2024 COMP. METAB OLIC PANEL (14) bilirubin, total 0.8 mg/dL 0.0-1. 2 normal Not Available [facility] ([facility]) [address] [facility] [place], [address], 12/30/2024 07:08:14 12/30/19 25 12/30/2024 COMP. METAB OLIC PANEL (14) alkaline phosphatase 69 IU/L 47-123 normal Not Available [facility] ([facility]) [address] [facility] [place], [address], 12/30/2024 07:08:14 12/30/1912/30/2024 COMP. METAB OLIC PANEL (14) AST (SGOT) 11 IU/L 0-40 normal Not Available [facility] ([facility]) [address] [place], [address], 12/30/2024 07:08:14 12/30/19 25 12/30/2024 COMP. METAB OLIC PANEL (14) ALT (SGPT) 8 IU/L 0-44 normal Not Available [facility] ([facility]) [address] [place], [address], 12/30/2024 07:08:14 12/30/19 25 12/30/2024 LIPID PANEL cholesterol, total 117 mg/dL 100-19 9 normal Not Available [facility] ([facility]) [address] [place], [address], 12/30/2024 07:08:15 12/30/1912/30/2024 LIPID PANEL triglyceride s 100 mg/dL 0-149 normal Not Available [facility] ([facility]) [address] [place], [address], 12/30/2024 07:08:15 12/30/19 25 12/30/2024 LIPID PANEL HDL cholesterol 43 mg/dL >39 normal Not Available [facility] ([facility]) [address] [facility] [place], [address], 12/30/2024 07:08:15 12/30/1912/30/2024 LIPID PANEL VLDL cholesterol aurelio 19 mg/dL 5-40 Not Available [facility] ([facility]) [address] [facility] [place], [address], 12/30/2024 07:08:15 12/30/1912/30/2024 LIPID PANEL LDL chol calc ([facility]) 55 mg/dL 0-99 Not Available [facility] ([facility]) [address] [facility], [place], [address], 12/30/2024 07:08:15 12/30/1912/30/2024 LIPID PANEL LDL calc comment: PHYSICIAN PRACTICE MANAGER Not Available [facility] ([facility]) [address] [facility], [place], [address], 12/30/2024 07:08:15 12/30/1912/30/2024 VITAM IN B12 AND FOLAT E vitamin B12 247 pg/mL 232-12 45 normal Not Available [facility] ([facility]) [address] [facility], [place], [address], 12/30/2024 07:08:15 12/30/1912/30/2024 VITAM IN B12 AND FOLAT E folate (folic acid), serum 3.8 NG/mL >3.0 normal A serum folat e ginny ntrat ion of less than 3.1 ng/mL is consi dered to repre sent clini aurelio defic iency . Not Available [facility] ([facility]) [address] [facility] [address], [place], [address], 12/30/2024 07:08:15 12/30/1912/30/2024 HEMOG LOBIN A1C hemoglobin A1C 5.9 % 4.8-5. 6 above high normal Predi abete s: 5.7 - 6.4 Diabe braden: >6.4 Glyce nicko contr ol for adult s with diabe braden: <7.0 Not Available [facility] ([facility]) [address] [facility] [address], [place], [address], 12/30/2024 07:08:15 12/30/19 25 12/30/2024 CANCE R ANTIG EN (CA) 125 cancer antigen (Ca) 125 11.2 U/mL not estab. normal [facility] Diagn ostic s Elect twan milum inesc ence Immun oassa y (ECLI A) Value s obtai rell with diffe rent assay metho ds or kits canno t be used inter [facility] e[facility] . Resul ts canno t be inter prete d as absol [place] evide nce of the prese nce or absen ce of kalyn mora se. Not Available [facility] ([facility]) [address] [facility] [address], [place], [address], 12/30/2024 07:08:16 12/30/19 25 12/30/2024 PROST ATE-S [...] or kits canno t be used inter marquez eably . Resul ts canno t be inter prete d as absol [place] evide nce of the prese nce or absen ce of kalyn mora se. Not Available [facility] ([facility]) [address] [facility] [address], [place], [address], 12/30/2024 07:08:16 12/30/1912/30/2024 VITAM IN D, 25-HY DROXY vitamin D, [...] es for calci um and D. Jere samson [place]: The [facility] . 2. Dolores mejía MF, Shannan orellana [place], Valerie off-F chrissy i PRATER, et al. Evalu ation , treat ment, and preve ntion of vitam in D defic iency : an Endoc rine Socie ty clini aurelio pract ice guide line. JCEM. 2010; 96(7) :1911 -30. Not Available [facility] ([facility]) [address], [place], [address], 12/30/2024 07:08:16 Result Notes None recorded. Problems Name Problem SNOMED Code Status Onset Date Resolution Date Notes Provider Name and Address Organization Details Recorded Time Hyperten sive disorder 36237301 Completed 201612/13/2017 Problem Code: I10; Problem Code Type: ICD-10; Not Available [facility] 2 21:20:38 Benign essentia l hyperten roberta 6098265 Active 2016 Problem Code: 401.1; Problem Code Type: ICD-9; Not Available [facility] 4 17:03:23 Gastroes ophageal reflux disease 171923405 Completed 201609/27/2020 Problem Code: 530.81; Problem Code Type: ICD-9; Not Available [facility] 2 21:20:44 Tobacco dependen 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 2 08:02:28 Gastroes ophageal reflux disease without esophagi tis 613030288 Active 2017 Not Available [facility] 4 17:03:23 Dyspnea 219560788 Completed 201701/07/2018 Problem Code: R06.02; Problem Code Type: ICD-10; Not Available [facility] 2 21:20:39 Tobacco dependen ce syndrome 34594391 Completed 201709/27/2020 Problem Code: 305.1; Problem Code Type: ICD-9; Not Available [facility] 2 21:20:43 Gastroes ophageal reflux disease 346096700 Completed 201709/27/2020 Problem Code: 530.81; Problem Code Type: ICD-9; Not Available [facility] 2 21:20:45 Mixed hyperlip idemia 458948435 Active 2017 Problem Code: E78.2; Problem Code Type: ICD-10; Not Available [facility] 4 17:03:23 Dyspnea 728221848 Completed 201702/11/2018 Problem Code: R06.02; Problem Code Type: ICD-10; Not Available [facility] 2 21:20:39 Abnormal weight gain 656118898 Completed 201702/11/2018 Problem Code: R63.5; Problem Code Type: ICD-10; Not Available [facility] 2 21:20:39 Pain of right lower leg 46006918972 9108 Completed 201803/08/2020 Problem Code: M79.661; Problem Code Type: ICD-10; Not Available [facility] 2 21:20:38 Pain of left lower leg 29138656491 9101 Completed 201803/08/2020 Problem Code: M79.662; Problem Code Type: ICD-10; Not Available [facility] 2 21:20:39 Localize d edema 205060333 Completed 201803/08/2020 Problem Code: R60.0; Problem Code Type: ICD-10; Not Available [facility] 2 21:20:39 General examinat ion of patient Completed 201903/08/2020 Not Available [facility] 2 21:20:40 Endocrin e/[place] lic screenin g Completed 201912/26/2021 Problem Code: Z13.29; Problem Code Type: ICD-10; KRISTYN murillo, [employer] 2 08:02:10 Screenin g for malignan t neoplasm of prostate Completed 201912/26/2021 Problem Code: Z12.5; Problem Code Type: ICD-10; KRISTYN murillo, [employer]. 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 2 08:02:10 Nicotine dependen ce 22436098 Completed 202009/27/2020 Problem Code: F17.200; Problem Code Type: ICD-10; Not Available [facility] 2 21:20:38 Low vision right eye, normal vision left eye 55930351501 9106 Completed 202012/26/2021 [id number] es: 'H54.51' ; KRISTYN murillo, [employer] 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 2 08:02:11 Viral screenin g Completed 202003/07/2021 Problem Code: Z11.52; Problem Code Type: ICD-10; Not Available [facility] 21:20:40 Pre-surg iraida testing Completed 202012/26/2021 Problem Code: Z01.812; Problem Code Type: ICD-10; KRISTYN murillo, [employer] 2 08:02:10 Body mass index 30+ - obesity 647023545 Completed 202109/26/2021 Problem Code: Z68.31; Problem Code Type: ICD-10; Not Available [facility] 21:20:43 Body mass index 30+ - obesity 098412240 Completed 202109/26/2021 Problem Code: Z68.33; Problem Code Type: ICD-10; Not Available [facility] 21:20:42 Nicotine dependen ce 13734615 Active 2021 Problem Code: F17.200; Problem Code Type: ICD-10; Not Available [facility] 4 17:03:23 COVID-19 069658610 Active 2023 Christin Herrera, PHYSICIAN PRACTICE MANAGER [address] [place], [address] , [employer] 4 09:12:45 Headache 39622965 Active 2023 Christin Herrera, PHYSICIAN PRACTICE MANAGER [address] [place], [address] , [employer] 4 09:32:18 Hyperlip idemia 51235173 Active 2024 Dora Blancas Radius, [employer] 5 14:43:04 Fatigue 60775782 Active 2024 Dora Blancas Radius, [employer] 5 14:43:04 Hypergly cemia 17748628 Active 2024 Dora Jolly Radius, [employer] 5 14:43:04 Viral wart on finger 678815432 Active 2024 Dora Blancas [employer] 5 10:26:48 Problem Notes None recorded. Procedures Surgical History Date Name Laterality Status Provider Name and Address Organization Details Recorded Time 09/23/19 25 Cryosurgery Warts/Skin Tags completed Dora [employer] 09/22/2024 10:27:53 three dimensional ultrasonography of abdominal aortic endovascular aneurysm repair with contrast completed [employer]. 12/26/2021 08:05:24 Unlisted procedure shoulder completed [employer]. 12/26/2021 08:05:39 Imaging Results None recorded. Procedure Notes None recorded. Medical Equipment None Reported. Allergies Allergen ID Allergen Name Allergen Category Reaction Reaction Severity Criticality Documentation Date Start Date Code Code System Note Provider Name and Address Organization Details Recorded Time 88445 atorvasta tin calcium medicatio n Not available Not available Not available 12/02/2021 97060 RxNorm [employer] 2 08:01:11 Medications Name Sig Start Date [...] blood by Pulse oximetry Systolic And Diastolic Systolic And Diastolic Systolic And Diastolic Provider Name and Address Organization Details Last Updated DateTime 5 182.88 cm 28.9 kg/m2 34290.1 7 g 75 /min 90 % 90 % 173/71 mm[Hg] 168/78 mm[Hg] 160/62 mm[Hg] [employer] 5 08:47:21 Date Recorded Body height Body mass index (BMI) Body weight Heart rate Oxygen saturation Oxygen saturation in Arterial blood by Pulse oximetry Systolic And Diastolic Provider Name and Address Organization Details Last Updated DateTime 5 182.88 cm 27.7 kg/m2 91432.8 4 g 97 /min 91 % 91 % 132/80 mm[Hg] [employer] 5 15:34:10 Date Recorded Body height Body mass index (BMI) Body weight Heart rate Oxygen saturation Oxygen saturation in Arterial blood by Pulse oximetry Systolic And Diastolic Provider Name and Address Organization Details Last Updated DateTime 5 182.88 cm 27.4 kg/m2 98320.6 6 g 74 /min 90 % 90 % 134/68 mm[Hg] [employer] 5 08:38:23 Date Recorded Body height Body mass index (BMI) Body weight Heart rate Oxygen saturation Oxygen saturation in Arterial blood by Pulse oximetry Systolic And Diastolic Provider Name and Address Organization Details Last Updated DateTime 5 182.88 cm 26.6 kg/m2 54358.1 g 86 /min 89 % 89 % 133/62 mm[Hg] [employer] 5 08:23:15 Date Recorded Body height Body mass index (BMI) Body weight Heart rate Oxygen saturation Oxygen saturation in Arterial blood by Pulse oximetry Systolic And Diastolic Provider Name and Address Organization Details Last Updated DateTime 4 182.88 cm 28.3 kg/m2 35934.8 1 g 78 /min 92 % 92 % 132/67 mm[Hg] Dora [employer] 4 08:15:14 Social History Question Answer Notes LastModified by Organizat ion Details LastModified Time Tobacco Smoking Status Current Every Day Smoker KRISTYNBHANU LOOMISESTUARDO murillo [employer]. 12/26/2021 08:03:51 Do You Have An Advance Directive? No [email or web address] Information n ot available 12/26/2021 Are You Blind Or Do You Have Difficulty Seeing? No Information n ot available 12/26/2021 Are You A Caregiver? No [email or web address] Information not available 04/03/2022 In The 14 Days Before Symptom Onset, Have You Had Close Contact With A Laboratory-confirm ed COVID-19 While That Case Was Ill? No [email or web address] Information n ot available 04/03/2022 In The 14 Days Before Symptom Onset, Have You Had Close Contact With A Person Who Is Under Investigation For COVID-19 While That Person Was Ill? No [email or web address] Information not available 04/03/2022 Have You Been To An Area Known To Be High Risk For COVID-19? No Information not available 12/26/2021 Are You Deaf Or Do You Have Serious Difficulty Hearing? No [email or web address] Information not available 12/26/2021 What Type Of Diet Are You Following? REGULAR [email or web address] Information n ot available 12/26/2021 Have There Been Any Changes To Your Family Or Social Situation? No Information no t available 04/03/2022 Do You Have A Medical Power Of Cooler Supervisor? No [email or web address] Information not available 12/26/2021 What Was The Date Of Your Most Recent Tobacco Screening? 12/29/2024 Information not available 12/29/2024 What Is Your Current Pack Years? 30ormorepack years [email or web address] Information not available 12/26/2021 What Is Your Relationship Status? [email or web address] Information not available 12/26/2021 Do You Use Your Seat Belt Or Car Seat Routinely? Yes [email or web address] Information not available 04/03/2022 Are You Passively Exposed To Smoke? Yes Information no t available 04/03/2022 Are There Any Smokers In Your House? Yes [email or web address] Information not available 04/03/2022 How Much Tobacco Do You Smoke? 2 PPD [email or web address] Information not available 12/26/2021 Do You Participate In Social Media? No Information not available 11/17/2023 Do You Use Sunscreen Routinely? No [email or web address] Information not available 04/03/2022 Has Tobacco Cessation Counseling Been Provided? Yes Information not available 10/15/2022 On What Date Was Tobacco Cessation Counseling Provided? 12/29/2024 Information not available 12/29/2024 Have You Recently Traveled Abroad? No [email or web address] Information not available 12/26/2021 Do You Have Difficulty Walking Or Climbing Stairs? No [email or web address] Information not available 12/26/2021 Are You Currently In School? No [email or web address] Information not available 12/26/2021 Do You Have Any Dietary Restrictions? No [email or web address] Information not available 11/17/2023 Sex: Male Functional Status Question Answer Note LastModified by Organizat ion Details LastModified Time Do you use any illicit or recreational drugs? No [email or web address] Information not available 04/03/2022 Do you or have you ever used any other forms of tobacco or nicotine? No [email or web address] Information not available 11/17/2023 What is your level of alcohol consumption? None history of alcoholism [email or web address] Information not available 12/26/2021 Are you currently employed? Yes [email or web address] Information not available 12/26/2021 Do you have transportation difficulties? No [email or web address] Information not available 12/26/2021 Are you able to walk independently without assistance or assistive devices? YESWOREST [email or web address] Information not available 12/26/2021 Do you have difficulty doing errands alone? No [email or web address] Information not available 12/26/2021 Are you able to care for yourself independently? Yes [email or web address] Information not available 12/26/2021 Do you have difficulty dressing, bathing, grooming, or toileting? No [email or web address] Information not available 12/26/2021 Mental Status Question Answer Note LastModified by Organization D etails LastModified Time Do you have difficulty concentrating, remembering or making decisions? No [email or web address] Information no t available 12/26/2021 Family History Relationship Description Onset Age of this Age Resolved Age Notes LastModified by Organization Details LastModified Time Son Family history of drug abuse [email or web address] Not available 11/29 08:03:29 Mother Family history of neurological disorder [email or web address] Not available 12/26 08:03:23 Father Family history of Hypertension Not available 08:03:20 Medical History Condition Response Emergency room visit since last appointm ent. N Hospitalizations N Hypertension Y Immunizations Vaccine Type Date Status Note Provider Name and Address Organization Details Recorded Time COVID-19 vaccine, vector-nr, rS-Ad26, PF, 0.5 mL 021 completed Not Available [facility] 05/04/2023 17:03:24 zoster recombinant 024 cancelled patient objection Theresa Hein APRN [address] [place] [address], [address], [facility] [employer] 10/01/2023 09:01:08 pneumococcal polysaccharide PPV23 024 cancelled patient objection Theresa Hein APRN [address] [place], [address], [employer] 10/01/2023 09:01:08 COVID-19 vaccine, vector-nr, rS-Ad26, PF, 0.5 mL 022 completed Not Available [facility] 05/04/2023 17:03:24 Past Encounters Encounter ID Performer Location Encounter Start Date Encounter Closed Date Diagnosis/Indication Diagnosis SNOMED-CT Code Diagnosis ICD10 Code Diagnosis IMO Codes Diagnosis Note [id number] Theresa Hein RN [facility] [place] [phone] 12/26/2021 07:54:32 12/26/2021 08:32:48 Benign essential hypertension 9016682 I10 Body mass index 30+ - obesity 961134110 Z68.31 Gastroesop hageal reflux disease without esophagitis 203461348 K21.9 Mixed hyperlipidemia 267 383765 E78.2 Nicotine dependence 5629 4008 F17.200 Chronic ob structive pulmonary disease 73677442 J44.9 [id number] Theresa Hein [place] [id number] 04/03/2022 08:10:50 04/03/2022 08:45:34 Benign essential hypertension 2526384 I10 Gastroesop hageal reflux disease without esophagitis 034719987 K21.9 Mixed hyperlipidemia 267 039667 E78.2 Nicotine dependence 5629 4008 F17.200 Chronic ob structive pulmonary disease 78849908 J44.9 Body mass index 30+ - obesity 603475800 Z68.31 [id number] Theresa [place] [address] 07/03/2022 07:55:20 07/03/2022 08:40:55 Benign essential hypertension 3023313 I10 Chronic ob structive pulmonary disease 74678979 J44.9 Mixed hyperlipidemia 267 206942 E78.2 Body mass index 30+ - obesity 655185670 Z68.31 [id number] Theresa Hein [place] [id number] 07/13/2022 16:35:05 07/13/2022 17:16:18 Melena 0845647 K92.1 Mixed hyperlipidemia 267 553619 E78.2 Body mass index 30+ - obesity 942794853 Z68.31 [id number] Theresa Hein [place] [id number] 10/15/2022 08:23:03 10/15/2022 09:06:59 Benign essential hypertension 8404182 I10 Mixed hyperlipidemia 267 188600 E78.2 Gastroesop hageal reflux disease without esophagitis 710803665 K21.9 Body mass index 30+ - obesity 947877580 Z68.31 [id number] [place] [address] 01/01/2023 07:58:46 01/01/2023 08:42:06 Chronic obstructive pulmonary disease 98292304 J44.9 Benign ess ential hypertension 4934079 I10 Gastroesop hageal reflux disease without esophagitis 928773645 K21.9 Mixed hyperlipidemia 267 453825 E78.2 Body mass index 30+ - obesity 788860589 Z68.31 [id number] [place] [address] 04/02/2023 08:00:39 04/02/2023 08:46:15 Benign essential hypertension 0167099 I10 Mixed hyperlipidemia 267 659311 E78.2 Nocturia 903177519 R35.1 Gastroesop hageal reflux disease without esophagitis 672406965 K21.9 Chronic ob structive pulmonary disease 90939623 J44.9 Body mass index 30+ - obesity 131050131 Z68.31 [id number] [place] [address] 06/10/2023 09:27:30 06/10/2023 09:57:56 Pain of left knee joint 8485426208 29265 M25.562 Body mass index 25-29 - overweight 586726951 Z68.29 [id number] [place] [address] 07/01/2023 08:58:04 07/01/2023 09:36:24 Chronic obstructive pulmonary disease 30563494 J44.9 Benign ess ential hypertension 3752014 I10 Gastroesop hageal reflux disease without esophagitis 978319270 K21.9 Mixed hyperlipidemia 267 756109 E78.2 Body mass index 30+ - obesity 272440867 Z68.31 [id number] [place] [address] 10/01/2023 07:57:36 10/01/2023 08:38:51 Benign essential hypertension 7075292 I10 Screening for malignant neoplasm of colon 264412141 Z12.11 Vaccine de clined by patient 9946493339 02 Z28.20 Adult heal th examination 382236873 Z00.00 Body mass index 25-29 - overweight 561759129 Z68.29 Chronic ob structive pulmonary disease 16394623 J44.9 Gastroesop hageal reflux disease without esophagitis 863579208 K21.9 Mixed hyperlipidemia 267 161953 E78.2 [id number] Christin Herrera, [place] [address] 11/17/2023 08:24:27 11/17/2023 09:37:26 Headache 94901475 R51.9 COVID-19 468310923 U07.1 [id number] [place] [id number] 12/31/2023 07:57:58 12/31/2023 08:33:31 Chronic obstructive pulmonary disease 28075693 J44.9 Benign ess ential hypertension 7071728 I10 Gastroesop hageal reflux disease without esophagitis 584255074 K21.9 Mixed hyperlipidemia 267 313961 E78.2 Body mass index 25-29 - overweight 847535407 Z68.29 [id number] Theresa Hein RN [facility] [place] [address] 0 03/31/2024 08:20:15 03/31/2024 09:10:24 Fatigue 58726825 R53.83 Hyperlipidemia 18234423 E78.5 Nocturia 624563612 R35.1 Hyperglycemia 76313151 R 73.9 Vitamin D deficiency 347 76281 E55.9 Vitamin B deficiency 479 20425 E53.9 Chronic ob structive pulmonary disease 92394623 J44.9 Benign ess ential hypertension 5364878 I10 Gastroesop hageal reflux disease without esophagitis 023036163 K21.9 Mixed hyperlipidemia 267 588753 E78.2 Bilateral cramp of muscle of lower limbs 7187135505 1213552 R25.2 Body mass index 25-29 - overweight 172420893 Z68.29 [id number] [place] [address] 06/27/2024 15:20:18 06/27/2024 16:16:15 Pain of right shoulder joint 7017410320 0474823 M25.511 Benign ess ential hypertension 3437138 I10 Gastroesop hageal reflux disease without esophagitis 421250590 K21.9 Mixed hyperlipidemia 267 064612 E78.2 Vitamin D deficiency 347 04296 E55.9 Body mass index 25-29 - overweight 706492405 Z68.29 [id number] [place] [address] 09/22/2024 08:14:06 09/22/2024 08:52:48 Hyperlipidemia 04063409 E78.5 Fatigue 27394000 R53.83 Hyperglycemia 37921373 R 73.9 Viral scre ening status 614246943 Z11.59 948834 Lower resp iratory tract infection 74628651 J22 2464 Benign ess ential hypertension 3201085 I10 Gastroesop hageal reflux disease without esophagitis 128931312 K21.9 Mixed hyperlipidemia 267 902161 E78.2 Vitamin D deficiency 347 86438 E55.9 Viral wart on finger 402 056343 B07.9 03917822 Overweight in adulthood with body mass index of 25 or more but less than 30 748369428 Z68.27 822191 [id number] [place] [address] 12/29/2024 08:16:46 12/29/2024 14:18:15 Influenza vaccination declined 878022477 Z28.21 76941879 Fatigue 92560313 R53.83 6018513 Mixed hyperlipidemia 267 512838 E78.2 66859 Hyperglycemia 98916974 R 73.9 31089 Vitamin D deficiency 347 37994 E55.9 91167 Cobalamin deficiency 190 921931 E53.8 98052 Iron defic iency anemia 04894016 D50.9 69860973 Nocturia 856367540 R35.1 75675 Unintentio nal weight loss 864409523 R63.4 030713 Benign ess ential hypertension 9855477 I10 Gastroesop hageal reflux disease without esophagitis 759223083 K21.9 Screening for malignant neoplasm of colon 711503795 Z12.11 956589 Screening for malignant neoplasm of lung 464063028 Z12.2 8275467801 Overweight in adulthood with body mass index of 25 or more but less than 30 767634905 Z68.26 104492 Health Concerns Section Related Observation LastModified by Organization Detai ls LastModified Time None Recorded Concern Status LastModified by Organization Details LastModified Time None Recorded Advance Directives Directive N: Payers Insurance Date Sequence Insurance Name Policy Number Policy Rosario Covered Member ID Rosario Member ID Guarantor Name 12/28/2024 [place] [employer] [facility] Keyshawn Albarran [id number] Keyshawn Albarran 12/28/2024 2 [place] Keyshawn Albarran [id number] Keyshawn Albarran 12/28/2024 1 [facility] [id number] Keyshawn Albarran [id number] Keyshawn Albarran Notes Date Note Type Note Provider Name and Address Organization Details Recorded Time 12/31/2023 text/html pt here today for medication refills. pt states hes doing well on current medication regime and has no new complaints today. pt states that he has been doing injections in left knee and that has been helping some and its not been as painful. pt has a annual appt with vascular in [place]. pt has no new complaints today. Theresa Hein APRN [address] [place], [address], [employer] 12/31/2023 09:11:34 03/31/2024 text/html pt here today for medication refills. pt states hes doing well on current medication regime. pt does c/o BLE cramps. thinks it could be the statin. states that he stopped it for 3 days and the cramps went away. i will order labwork today. if WNL i will order a regime of zetia and low dose statin to see if that helps. Theresa Hein APRN [address] [place], [address], [employer] 03/31/2024 17:55:20 06/27/2024 text/html 68 year old male presents for chronic disease f/u. States he is doing well on current medication regimen without AE. Has noticed left shoulder has been hurting within the past month. Pain with overhead movement, Denies numbness/tingling/ weakness. Has a hx of bilateral shoulder sx. States he has had steroid injection in the past and hasnt had trouble since. Will do steriod injection today and he is to return for xray if worsens. pt agrees Theresa Hein, DAYLIN [address] [facility] [address], [place], [address], [employer] 06/27/2024 16:15:33 09/22/2024 text/html pt here today for medication refills. pt states hes doing well on current medication regime. pt states that he has had some chest congestion and cough for the past several days. on exam, lungs decreased with ex wheeze and strong cough. i will order abx and steroids. educated pt on new meds. pt voiced understanding. increase fluid intake. return for worsening symptoms. pt also c/o a wart like place on left hand index finger that has been there for a long time. states that he has been clipping it off but it comes back. states that it hurts when he puts his hand in his pocket. on exam appears to be a keratosis. pt sign consent and cryo treatment was applied. pt tolerated procedure. educated pt on what area should look like. return for s/s of infection. pt voiced understanding. Theresa Hein APRN [address] [facility], [place], [address], [employer], [employer] 09/22/2024 10:43:50 12/29/2024 text/html pt here today for medication [...] he is fine . 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 Theresa Hein APRN [address] [facility], [place], [address], [facility] [employer] 12/29/2024 10:55:33
== END 2025-01-09 23:59 | disposition home or self-care (01) ==
LOC: RAD 06:53
PROVIDERS: PCP Nurse Practitioner; Visit Provider Nurse Practitioner
DX: Z12.2 Encounter for screening for malignant neoplasm of respiratory organs (principal); F17.210 Nicotine dependence, cigarettes, uncomplicated; R91.1 Solitary pulmonary nodule; I25.10 Atherosclerotic heart disease of native coronary artery without angina pectoris; K31.89 Other diseases of stomach and duodenum
CPT/HCPCS: 71271

== ENCOUNTER 2025-01-24 08:08 | Outpatient (CLI) | payer OTHER, MEDICARE, SELFPAY ==
--- NOTE | 2025-01-24 08:13 | CT_ITS ---
FINAL REPORT TECHNIQUE: Pre- and postcontrast images of the abdomen were performed by computed tomography. Coronal and sagittal reconstructions obtained and reviewed. This study was performed with techniques to keep radiation doses as low as reasonably achievable, (ALARA). Individualized dose reduction techniques using automated exposure control or adjustment of mA and/or kV according to the patient's size were employed. CLINICAL HISTORY: GASTRIC WALL THICKENING shown on ct ldls on 01/09/25, images sent COMPARISON: CT low-dose 01/09/2025 FINDINGS: There is localized consolidation in the medial left lower lobe confined to the infrahilar region, well-seen on images 12 through 21 of series 3. The liver is homogeneous. The gallbladder is present. The spleen, pancreas, and adrenal glands are unremarkable. The right kidney is atrophic. There is a 4 mm stone in the lower pole of the right kidney. Compensatory hypertrophy of the left kidney is noted. There is an endograft spanning an abdominal aortic aneurysm. The excluded aneurysm measures 7.7 x 6.0 cm transverse and AP dimension. There is an ovoid density along the anterior margin of the right pararenal fascia measuring 4.6 x 3.3 cm. This density demonstrates smooth margins. Again noted is diffuse gastric wall thickening measuring up to 2.5 cm, greater than expected. There is no surrounding inflammation. Limited images of the pelvis demonstrate a segment of mucosal thickening in the mid sigmoid colon measuring 5.5 cm in length with no surrounding inflammation. IMPRESSION: New consolidation at the medial left lung base. Small focus of pneumonia versus aspiration. Abnormal gastric wall thickening may be due to nonspecific gastritis. Abdominal aortic aneurysm with endograft. Ovoid density along the anterior right pararenal fascia, significance unclear. This may be related to sequela from old hematoma. Finding is technically indeterminate. Follow-up with infused abdomen/pelvis CT recommended. 5.5 cm segment of mucosal thickening mid sigmoid:. Sigmoid neoplasm not excluded. Lower endoscopy highly recommended. Reviewed, Interpreted and Dictated by Jason Romero MD Transcribed by Lorena Mayen Authenticated and . [facility]
--- OUTSIDE RECORDS SUMMARY | 2025-01-24 08:13 | XMS_ITS | Clinical Summary ---
Author Organization [facility] Address [address] [place] [address] Care Team Providers Care X Ray Equipment Tester Name Role Phone Theresa Hein APRN Primary Care Provider [phone] Allergies Active Allergy Reactions Criticality Noted Date [...] hours as needed Active ergocalciferol 1.25 MG (00943 UT) capsule TAKE ONE CAPSULE BY MOUTH [...] (01/20/2021): Added automatically from request for surgery [id number] Encounters Date Type Department Care Team Description 11/24/2024 Telephone [facility] [address], [address] [address] Mitali Joseph RN 11/24/2024 Telephone [facility] [address], [address] [place] [phone] Mitali Joseph RN from Last 3 [...] [facility] [address], [address] [place] [address] 06/01/2025 9:00 AM EST Appointment [facility] [address] [place] [address] 06/01/2025 9:30 AM EST Appointment [facility] [address], [address] [place] [address] 06/01/2025 10:40 AM EST Office Visit [facility] [address] Wing [address], [address] [place] [address] Fabricio Walker MD [address] [facility] [address] [place] [address] Health Maintenance Due Date Last Done Comments [...] 2001 Sigmoidoscopy 2001 [facility]-Colorectal Cancer Screening 2001 Lung Cancer Screening Shared Decision Making 2006 [facility]-Zoster Vaccines (1 of 2) 2006 [facility]-Lung Cancer Screening 05/15/2021 05/15/2020 [facility]-Abdominal Aortic Aneurys m (AAA) Screening 2021 [facility]-Depression Screening 04/26/2024 04/26/2023 [id number]-AVLDV-35 Vaccine (3 - season) 2024 04/17/2021, 08/03/2020 [...] this topic Medical Devices Implanted Type Area Client Analyst Device Identifier Shelf Expiration Date Model / Serial / Lot 28.5mm Tanja Aortic X 12mm Tanja Iliac X 12cm Length, Excluder Trunk-Ipsilatera l Leg Endoprosthesis, C3 Delivery System Implanted:Qty: 1 on 02/27/2021 by Fabricio Walker MD at [facility] Stent 11/03/2023 [id number] / [id number] / [id number] Stent Graft Iliac [id number] [employer] - [id number] - [id number] Implanted:Qty: 1 on 02/27/2021 by Fabricio [place] [facility] [id number] 09/10/2023 [id number] / [id number] / [id number] Stent Graft Iliac [id number] Lviabahnbx - [id number] Implanted:Qty: 1 on 02/27/2021 by Fabricio Walker [place] [facility] [place]633[place] 08/29/2023 [id number] / [id number] / [id number] Stent Graft Iliac [id number] [employer]x - [id number] Implanted:Qty: 1 on 02/27/2021 by Fabricio Walker [place] [facility] [place]227[place] 11/26/2023 [id number] / [id number] / [id number] Concrete Block Layer Bif 32mm Aor Endoprosth Excldr - [id number] Implanted:Qty: 1 on 02/27/2021 by Fabricio Walker [place] [facility] [place]990[place] 07/09/2023 [id number] / [id number] / [id number] Stent Graft Iliac [id number] [employer]x - [id number] Implanted:Qty: 1 on 02/27/2021 by Fabricio Walker [place] [facility] [place]2135[place] 10/02/2023 [id number] / [id number] / [id number] Concrete Block Layer Bif 32mm Aor Endoprosth Excldr - [id number] Implanted:Qty: 1 on 02/27/2021 by Fabricio Walker [place] [facility] [place] 09/15/2023 [id number] / [id number] / [id number] Stent Exp Bili Ld 7 X 57 - [id number] Implanted:Qty: 1 on 02/27/2021 by Fabricio Walker MD at [facility] [id number] 02/08/2023 [id number] / [id number] Procedures Procedure Name Priority Date/Time Associated Diagnosis [...] EXAMINATION / PROCEDURE: CTA Chest May 15 2020 - :49; CTA Abdomen & Pelvis May 15 2020:49; [...] on May 15 2020 10:16P Transcribed by: LAWRENCE on May 15 2020 10:16P Dictated by: FELICITA ARORA M.D. on May 15 2020 10:02P Procedure Note Felicita Arora MD - 07/23/2020 REQUESTING PHYSICIAN: TYREE CORRALES REASON FOR EXAMINATION/PROCEDURE: [...] May 15 2020 10:02P Tyree Corrales MD IM CT PROCEDURES Final R esult from Last 3 Months or Most Recently Relevant to Health Maintenance [place] [id number] Care Teams X Ray Equipment Tester Relationship Specialty Start Date End Date Theresa Hein APRN [address] [place] [phone] PCP - General 02/25/21
--- OUTSIDE RECORDS SUMMARY | 2025-01-24 08:13 | XMS_ITS | Data Portability ---
Author Organization [employer] [facility] Address [address] [place] [address] Assessment No assessment recorded. Plan of Treatment Reminders Order Date Submit Date Provider Last Modified By Organization Details Last Modified Time Details Appointments FOLLOW UP 30 2025 08:00A M Anna Marie Hein APRN Not available Not available Not available Lab CBC w/ auto diff 2024 025 [facility]), [address] [place], [address], 12/30/2024 07:08:14 CMP, serum or plasma 2024 025 [facility]), [address] [place], [address], 12/30/2024 07:08:14 TSH + free T4, serum 2024 025 [facility]), [address] [place], [address], 12/30/2024 07:08:13 PSA, total, serum or plasma 2024 025 [facility], [address] [place], [address], 12/30/2024 07:08:16 lipid panel, serum 2024 025 [facility]), [facility] [place], [address], 12/30/2024 07:08:15 HbA1c (hemoglob in A1c), blood 2024 025 [facility]), [address] [place], [address], 12/30/2024 07:08:15 ca 125, serum 2024 025 [facility]), [address] [place], [address], 12/30/2024 07:08:16 vitamin D, 25-hydrox y, total, serum 2024 025 [facility]), [address] [place], [address], 12/30/2024 07:08:16 noninvasi ve colorecta l cancer DNA + occult blood screening , QL, stool 2024 025 [facility], [address], [address], [place], [address], 01/19/2025 09:07:39 iron + TIBC + ferritin, serum 2024 025 [facility]), [address] [place] [address], [address], 12/30/2024 07:08:13 cobalamin and folate panel, serum 2024 025 [facility]), [address] [place], [address], 12/30/2024 07:08:15 lipid panel, serum 2024 025 [facility]), [address] [place] [address], [address], 09/23/2024 07:07:17 CBC w/ auto diff 2024 025 [facility]), [address] [place] [address] [place], [address], 09/23/2024 07:07:16 CMP, serum or plasma 2024 025 [facility]), [address] [place], [address], 09/23/2024 07:07:16 TSH + free T4, serum 2024 025 [facility]), [address] [place], [address], 09/23/2024 07:07:15 cobalamin and folate panel, serum 2024 025 [facility]), [address] [place], [address], 09/23/2024 07:07:18 vitamin D, 25-hydrox y, total, serum 2024 025 [facility]), [address] [place], [address], 09/23/2024 07:07:19 HbA1c (hemoglob in A1c), blood 2024 025 [facility]), [address] [place], [address], 09/23/2024 07:07:19 Hepatitis C IgG Ab, qual, serum 2024 025 [facility]), [address] [place], [address], 09/23/2024 07:07:18 lipid panel, serum 2024 025 [facility]), [address] [place] [address], [address], 04/01/2024 08:11:36 CBC w/ auto diff 2024 025 [facility]), [address] [place] [address], [address], 04/01/2024 08:11:34 CMP, serum or plasma 2024 025 [facility]), [address] [place], [address], 04/01/2024 08:11:35 TSH + free T4, serum 2024 025 [facility]), [address] [place], [address], 04/01/2024 08:11:34 HbA1c (hemoglob in A1c), blood 2024 025 [facility]), [address] [place], [address], 04/01/2024 08:11:37 cobalamin and folate panel, serum 2024 025 [facility]), [address] [place], [address], 04/01/2024 08:11:37 vitamin D, 25-hydrox y, total, serum 2024 025 [facility]), [address] [place], [address], 04/01/2024 08:11:39 PSA, total, serum or plasma 2024 025 [facility]), [address] [place], [address], 04/01/2024 08:11:38 Referral None recorded. Procedures cryosurge ry (PROC) 2024 025 Not available 09/22/2024 10:27:00 Surgeries None recorded. Imaging LDCT, chest, for lung cancer screening 2024 025 [facility] [address], [place], [address], 01/09/2025 11:10:11 Medication Orders carvedilo l 6.25 mg tablet 2024 [facility], [address] [place] [address], [address], 12/30/2024 09:24:51 clopidogr el 75 mg tablet 2024 [facility], [address] [place] [address], [address], 12/30/2024 09:24:53 lisinopri l 20 mg-hydroc hlorothia zide 12.5 mg tablet 2024 [facility], [address] [place] [address], [address], 12/30/2024 09:24:52 simvastat in 40 mg tablet 2024 [facility], [address] [place] [address], [address], 12/30/2024 09:24:50 ergocalci ferol (vitamin D2) 1,250 mcg (50,000 unit) capsule 2024 [facility], [address] [place] [address], [address], 12/30/2024 09:24:50 omeprazol e 40 mg capsule,d elayed release 2024 [facility], [address] [place] [address], [address], 12/30/2024 09:24:51 simvastat in 40 mg tablet 2024 [facility], [address] [place] [address], [address], 12/08/2024 15:20:56 azithromy teri 250 mg tablet 2024 025 [facility], [address] [place] [address], [address], 12/29/2024 08:37:35 prednison e 20 mg tablet [email or web address] [facility], [address] [place] [address], [address], 12/29/2024 08:24:54 ergocalci ferol (vitamin D2) 1,250 mcg (50,000 unit) capsule 2024 025 [facility], [address] [place] [address], [address], 09/27/2024 14:59:22 omeprazol e 40 mg capsule,d elayed release 2024 025 [facility], [address] [place] [address], [address], 09/23/2024 11:36:17 carvedilo l 6.25 mg tablet 2024 025 [facility], [address] [place] [address], [address], 09/23/2024 11:36:18 clopidogr el 75 mg tablet 2024 025 [facility], [address] [place] [address], [address], 12/08/2024 15:20:57 lisinopri l 20 mg-hydroc hlorothia zide 12.5 mg tablet 2024 025 [facility], [address] [place] [address], [address], 12/08/2024 15:20:56 simvastat in 40 mg tablet 2024 025 [facility], [address] [place] [address], [address], 09/04/2024 14:56:38 ergocalci ferol (vitamin D2) 1,250 mcg (50,000 unit) capsule 2024 025 [facility], [address] [place] [address], [address], 09/04/2024 14:56:41 omeprazol e 40 mg capsule,d elayed release 2024 025 [facility], [address] [place] [address], [address], 09/04/2024 14:56:41 carvedilo l 6.25 mg tablet 2024 025 [facility], [address] [place] [address], [address], 08/05/2024 11:32:31 clopidogr el 75 mg tablet 2024 025 [facility], [address] [place] [address], [address], 09/04/2024 14:56:40 lisinopri l 20 mg-hydroc hlorothia zide 12.5 mg tablet 2024 025 [facility], [address] [place] [address], [address], 09/04/2024 14:56:39 Depo-Medr ol 80 mg/mL suspensio n for injection 2024 025 Not available 09/22/2024 08:38:40 simvastat in 40 mg tablet 2024 025 [facility], [address] [place] [address], [address], 06/06/2024 14:56:26 albuterol sulfate HFA 90 mcg/actua tion aerosol inhaler 2024 025 [facility], [address] [place] [address], [address], 08/05/2024 11:32:34 omeprazol e 40 mg capsule,d elayed release 2024 025 [facility], [address] [place] [address], [address], 06/06/2024 14:56:26 carvedilo l 6.25 mg tablet 2024 025 [facility], [address] [place] [address], [address], 05/05/2024 15:49:26 clopidogr el 75 mg tablet 2024 025 [facility], [address] [place] [address], [address], 06/06/2024 14:56:25 lisinopri l 20 mg-hydroc hlorothia zide 12.5 mg tablet 2024 025 [facility], [address] [place] [address], [address], 06/06/2024 14:56:27 simvastat in 40 mg tablet 2023 024 [facility], [address] [place] [address], [address], 03/07/2024 17:27:49 omeprazol e 40 mg capsule,d elayed release 2023 024 [facility], [address] [place] [address], [address], 12/31/2023 14:47:44 carvedilo l 6.25 mg tablet 2023 024 [facility], [address] [place] [address], [address], 12/31/2023 14:47:44 clopidogr el 75 mg tablet 2023 [facility], [address] [place] [address], [address], 03/07/2024 17:27:50 lisinopri l 20 mg-hydroc hlorothia zide 12.5 mg tablet 2023 [facility], [address] [place] [address], [address], 03/07/2024 17:27:50 albuterol sulfate HFA 90 mcg/actua tion aerosol inhaler 2023 [facility], [address] [place] [address], [address], 10/19/2024 15:10:52 Patient TargetsNo targets recorded. Patient InstructionsNo instructions recorded. Reason for Referral None Reported. Results Created Date Observation Date Name Description Value Unit Range Abnormal Flag Note LastModifiedBy Organization Detail LastModifiedTime 03/31/1904/01/2024 TSH+F REE T4 TSH 1.470 uIU/m L 0.450- 4.500 normal Not Available [facility] ([facility]) [address] [place], [address], 04/01/2024 08:11:34 03/31/1904/01/2024 TSH+F REE T4 T4,free(dire ct) 1.16 NG/dL 0.82-1 .77 normal Not Available [facility] ([facility]) [address] [facility], [place], [address], 04/01/2024 08:11:34 03/31/1904/01/2024 CBC WITH DIFFE RENTI AL/PL ATELE T WBC 8.9 x10e3 /uL 3.4-10 .8 normal Not Available [facility] ([facility]) [address] [facility], [place], [address], 04/01/2024 08:11:34 03/31/1904/01/2024 CBC WITH DIFFE RENTI AL/PL ATELE T RBC 4.50 x10e6 /uL 4.14-5 .80 normal Not Available [facility] ([facility]) [address] [facility], [place], [address], 04/01/2024 08:11:34 03/31/19 25 04/01/2024 CBC WITH DIFFE RENTI AL/PL ATELE T hemoglobin 13.1 g/dL 13.0-1 7.7 normal Not Available [facility] ([facility]) [address] [facility], [place], [address], 04/01/2024 08:11:34 03/31/1904/01/2024 CBC WITH DIFFE RENTI AL/PL ATELE T hematocrit 40.2 % 37.5-5 1.0 normal Not Available [facility] ([facility]) [address] [place], [address], 04/01/2024 08:11:34 03/31/1904/01/2024 CBC WITH DIFFE RENTI AL/PL ATELE T MCV 89 fL 79-97 normal Not Available [facility] ([facility]) [address] [place], [address], 04/01/2024 08:11:34 03/31/1904/01/2024 CBC WITH DIFFE RENTI AL/PL ATELE T MCH 29.1 pg 26.6-3 3.0 normal Not Available [facility] ([facility]) [address] [place], [address], 04/01/2024 08:11:34 03/31/19 25 04/01/2024 CBC WITH DIFFE RENTI AL/PL ATELE T MCHC 32.6 g/dL 31.5-3 5.7 normal Not Available [facility] ([facility]) [address] [facility], [place], [address], 04/01/2024 08:11:34 03/31/19 25 04/01/2024 CBC WITH DIFFE RENTI AL/PL ATELE T RDW 12.9 % 11.6-1 5.4 Not Available [facility] ([facility]) [address] [facility], [place], [address], 04/01/2024 08:11:34 03/31/19 25 04/01/2024 CBC WITH DIFFE RENTI AL/PL ATELE T platelets 234 x10e3 /uL 150-45 0 normal Not Available [facility] ([facility]) [address] [facility], [place], [address], 04/01/2024 08:11:34 03/31/19 25 04/01/2024 CBC WITH DIFFE RENTI AL/PL ATELE T neutrophils 63 % not estab. normal Not Available [facility] ([facility]) [address] [facility], [place], [address], 04/01/2024 08:11:34 03/31/19 25 04/01/2024 CBC WITH DIFFE RENTI AL/PL ATELE T lymphs 25 % not estab. normal Not Available [facility] ([facility]) [address] [facility], [place], [address], 04/01/2024 08:11:34 03/31/19 25 04/01/2024 CBC WITH DIFFE RENTI AL/PL ATELE T monocytes 7 % not estab. normal Not Available [facility] ([facility]) [address] [facility], [place], [address], 04/01/2024 08:11:34 03/31/19 25 04/01/2024 CBC WITH DIFFE RENTI AL/PL ATELE T eos 4 % not estab. normal Not Available [facility] ([facility]) [address] [facility], [place], [address], 04/01/2024 08:11:34 03/31/19 25 04/01/2024 CBC WITH DIFFE RENTI AL/PL ATELE T basos 1 % not estab. normal Not Available [facility] ([facility]) [address] [facility], [place], [address], 04/01/2024 08:11:34 03/31/19 25 04/01/2024 CBC WITH DIFFE RENTI AL/PL ATELE T immature cells [employer] Not Available [facility] ([facility]) [address] [facility], [place], [address], 04/01/2024 08:11:34 03/31/19 25 04/01/2024 CBC WITH DIFFE RENTI AL/PL ATELE T neutrophils (absolute) 5.6 x10e3 /uL 1.4-7. 0 normal Not Available [facility] ([facility]) [address] [facility], [place], [address], 04/01/2024 08:11:34 03/31/19 25 04/01/2024 CBC WITH DIFFE RENTI AL/PL ATELE T lymphs (absolute) 2.2 x10e3 /uL 0.7-3. 1 normal Not Available [facility] ([facility]) [address] [facility], [place], [address], 04/01/2024 08:11:34 03/31/1904/01/2024 CBC WITH DIFFE RENTI AL/PL ATELE T monocytes(ab solute) 0.6 x10e3 /uL 0.1-0. 9 normal Not Available [facility] ([facility]) [address] [place], [address], 04/01/2024 08:11:34 03/31/19 25 04/01/2024 CBC WITH DIFFE RENTI AL/PL ATELE T eos (absolute) 0.3 x10e3 /uL 0.0-0. 4 normal Not Available [facility] ([facility]) [address] [facility], [place], [address], 04/01/2024 08:11:34 03/31/19 25 04/01/2024 CBC WITH DIFFE RENTI AL/PL ATELE T baso (absolute) 0.1 x10e3 /uL 0.0-0. 2 normal Not Available [facility] ([facility]) [address] [facility], [place], [address], 04/01/2024 08:11:34 03/31/19 25 04/01/2024 CBC WITH DIFFE RENTI AL/PL ATELE T immature granulocytes 0 % not estab. Not Available [facility] ([facility]) [address] [facility], [place], [address], 04/01/2024 08:11:34 03/31/19 25 04/01/2024 CBC WITH DIFFE RENTI AL/PL ATELE T immature grans (abs) 0.0 x10e3 /uL 0.0-0. 1 Not Available [facility] ([facility]) [address] [facility], [place], [address], 04/01/2024 08:11:34 03/31/19 25 04/01/2024 CBC WITH DIFFE RENTI AL/PL ATELE T NRBC [employer] Not Available [facility] ([facility]) [address] [facility], [place], [address], 04/01/2024 08:11:34 03/31/19 25 04/01/2024 CBC WITH DIFFE RENTI AL/PL ATELE T hematology comments: [employer] Not Available [facility] ([facility]) [address] [facility], [place], [address], 04/01/2024 08:11:34 03/31/19 25 04/01/2024 COMP. METAB OLIC PANEL (14) glucose 90 mg/dL 70-99 normal Not Available [facility] ([facility]) [address] [place], [address], 04/01/2024 08:11:35 03/31/19 25 04/01/2024 COMP. METAB OLIC PANEL (14) BUN 20 mg/dL 8-27 normal Not Available [facility] ([facility]) [address] [facility] [place], [address], 04/01/2024 08:11:35 03/31/19 25 04/01/2024 COMP. METAB OLIC PANEL (14) creatinine 1.32 mg/dL 0.76-1 .27 above high normal Not Available [facility] ([facility]) [address] [facility] [place], [address], 04/01/2024 08:11:35 03/31/19 25 04/01/2024 COMP. METAB OLIC PANEL (14) eGFR 59 mL/mi n/1.7 3 >59 below low normal Not Available [facility] ([facility]) [address] [facility], [place], [address], 04/01/2024 08:11:35 03/31/19 25 04/01/2024 COMP. METAB OLIC PANEL (14) BUN/creatini ne ratio 15 10-24 normal Not Available [facility] ([facility]) [address] [facility], [place], [address], 04/01/2024 08:11:35 03/31/19 25 04/01/2024 COMP. METAB OLIC PANEL (14) sodium 141 mmol/ L 134-14 4 normal Not Available [facility] ([facility]) [address] [facility] [place], [address], 04/01/2024 08:11:35 03/31/19 25 04/01/2024 COMP. METAB OLIC PANEL (14) potassium 4.0 mmol/ L 3.5-5. 2 normal Not Available [facility] ([facility]) [address] [facility], [place], [address], 04/01/2024 08:11:35 03/31/19 25 04/01/2024 COMP. METAB OLIC PANEL (14) chloride 98 mmol/ L 96-106 normal Not Available [facility] ([facility]) [address] [facility] [place], [address], 04/01/2024 08:11:35 03/31/19 25 04/01/2024 COMP. METAB OLIC PANEL (14) carbon dioxide, total 29 mmol/ L 20-29 normal Not Available [facility] ([facility]) [address] [facility], [place], [address], 04/01/2024 08:11:35 03/31/19 25 04/01/2024 COMP. METAB OLIC PANEL (14) calcium 9.1 mg/dL 8.6-10 .2 normal Not Available [facility] ([facility]) [address] [facility], [place], [address], 04/01/2024 08:11:35 03/31/19 25 04/01/2024 COMP. METAB OLIC PANEL (14) protein, total 6.7 g/dL 6.0-8. 5 normal Not Available [facility] ([facility]) [address] [place], [address], 04/01/2024 08:11:35 03/31/19 25 04/01/2024 COMP. METAB OLIC PANEL (14) albumin 4.0 g/dL 3.9-4. 9 normal Not Available [facility] ([facility]) [address] [place], [address], 04/01/2024 08:11:35 03/31/19 25 04/01/2024 COMP. METAB OLIC PANEL (14) globulin, total 2.7 g/dL 1.5-4. 5 Not Available [facility] ([facility]) [address] [facility], [place], [address], 04/01/2024 08:11:35 03/31/19 25 04/01/2024 COMP. METAB OLIC PANEL (14) bilirubin, total 0.3 mg/dL 0.0-1. 2 normal Not Available [facility] ([facility]) [address] [place], [address], 04/01/2024 08:11:35 03/31/19 25 04/01/2024 COMP. METAB OLIC PANEL (14) alkaline phosphatase 88 IU/L 44-121 normal Not Available [facility] ([facility]) [address] [place], [address], 04/01/2024 08:11:35 03/31/19 25 04/01/2024 COMP. METAB OLIC PANEL (14) AST (SGOT) 18 IU/L 0-40 normal Not Available [facility] ([facility]) [address] [place], [address], 04/01/2024 08:11:35 03/31/19 25 04/01/2024 COMP. METAB OLIC PANEL (14) ALT (SGPT) 14 IU/L 0-44 normal Not Available [facility] ([facility]) [address] [place], [address], 04/01/2024 08:11:35 03/31/19 25 04/01/2024 LIPID PANEL cholesterol, total 162 mg/dL 100-19 9 normal Not Available [facility] ([facility]) [address] [place], [address], 04/01/2024 08:11:36 03/31/19 25 04/01/2024 LIPID PANEL triglyceride s 110 mg/dL 0-149 normal Not Available [facility] ([facility]) [address] [place], [address], 04/01/2024 08:11:36 03/31/19 25 04/01/2024 LIPID PANEL HDL cholesterol 32 mg/dL >39 below low normal Not Available [facility] ([facility]) [address] [place], [address], 04/01/2024 08:11:36 03/31/19 25 04/01/2024 LIPID PANEL VLDL cholesterol aurelio 20 mg/dL 5-40 Not Available [facility] ([facility]) [address] [facility], [place], [address], 04/01/2024 08:11:36 03/31/19 25 04/01/2024 LIPID PANEL LDL chol calc ([facility]) 110 mg/dL 0-99 above high normal Not Available [facility] ([facility]) [address] [facility], [place], [address], 04/01/2024 08:11:36 03/31/19 25 04/01/2024 LIPID PANEL LDL calc comment: [employer] Not Available [facility] ([facility]) [address] [facility], [place], [address], 04/01/2024 08:11:36 03/31/19 25 04/01/2024 VITAM IN B12 AND FOLAT E vitamin B12 387 pg/mL 232-12 45 normal Not Available [facility] ([facility]) [address] [facility], [place], [address], 04/01/2024 08:11:37 03/31/1904/01/2024 VITAM IN B12 AND FOLAT E folate (folic acid), serum 3.3 NG/mL >3.0 normal A serum folat e ginny ntrat ion of less than 3.1 ng/mL is consi dered to repre sent clini aurelio defic iency . Not Available [facility] ([facility]) [address] [facility], [place], [address], 04/01/2024 08:11:37 03/31/1904/01/2024 HEMOG LOBIN A1C hemoglobin A1C 5.8 % 4.8-5. 6 above high normal Predi abete s: 5.7 - 6.4 Diabe braden: >6.4 Glyce nicko contr ol for adult s with diabe braden: <7.0 Not Available [facility] ([facility]) [address] [facility], [place], [address], 04/01/2024 08:11:37 03/31/19 25 04/01/2024 PROST ATE-S [...] t be inter prete d as absol [place] evide nce of the prese nce or absen ce of kalyn mora se. Not Available [facility] ([facility]) [address] [facility], [place], [address], 04/01/2024 08:11:38 03/31/19 25 04/01/2024 VITAM IN [...] Jere samson [place]: The [facility] Press . 2. Dolores ELKINS, Shannan orellana [place], Bisch off-F errar i PRATER, et al. Evalu ation , treat ment, and preve ntion of vitam in D defic iency : an Endoc rine Socie ty clini aurelio pract ice guide line. JCEM. 2010; 96(7) :1911 -30. Not Available [facility] ([facility]) [address] [place], [address], 04/01/2024 08:11:39 09/23/1909/23/2024 TSH+F REE T4 TSH 0.926 uIU/m L 0.450- 4.500 normal Not Available [facility] ([facility]) [address] [place], [address], 09/23/2024 07:07:15 09/23/1909/23/2024 TSH+F REE T4 T4,free(dire ct) 1.03 NG/dL 0.82-1 .77 normal Not Available [facility] ([facility]) [address] [place], [address], 09/23/2024 07:07:15 09/23/1909/23/2024 CBC WITH DIFFE RENTI AL/PL ATELE T WBC 10.8 x10e3 /uL 3.4-10 .8 normal Not Available [facility] ([facility]) [address] [place], [address], 09/23/2024 07:07:16 09/23/1909/23/2024 CBC WITH DIFFE RENTI AL/PL ATELE T RBC 4.46 x10e6 /uL 4.14-5 .80 normal Not Available [facility] ([facility]) [address] [place], [address], 09/23/2024 07:07:16 09/23/19 25 09/23/2024 CBC WITH DIFFE RENTI AL/PL ATELE T hemoglobin 12.7 g/dL 13.0-1 7.7 below low normal Not Available [facility] ([facility]) [address] [place], [address], 09/23/2024 07:07:16 09/23/19 25 09/23/2024 CBC WITH DIFFE RENTI AL/PL ATELE T hematocrit 41.1 % 37.5-5 1.0 normal Not Available [facility] ([facility]) [address] [facility], [place], [address], 09/23/2024 07:07:16 09/23/19 25 09/23/2024 CBC WITH DIFFE RENTI AL/PL ATELE T MCV 92 fL 79-97 normal Not Available [facility] ([facility]) [address] [facility], [place], [address], 09/23/2024 07:07:16 09/23/19 25 09/23/2024 CBC WITH DIFFE RENTI AL/PL ATELE T MCH 28.5 pg 26.6-3 3.0 normal Not Available [facility] ([facility]) [address] [place], [address], 09/23/2024 07:07:16 09/23/19 25 09/23/2024 CBC WITH DIFFE RENTI AL/PL ATELE T MCHC 30.9 g/dL 31.5-3 5.7 below low normal Not Available [facility] ([facility]) [address] [place], [address], 09/23/2024 07:07:16 09/23/19 25 09/23/2024 CBC WITH DIFFE RENTI AL/PL ATELE T RDW 13.8 % 11.6-1 5.4 Not Available [facility] ([facility]) [address] [place], [address], 09/23/2024 07:07:16 09/23/19 25 09/23/2024 CBC WITH DIFFE RENTI AL/PL ATELE T platelets 275 x10e3 /uL 150-45 0 normal Not Available [facility] ([facility]) [address] [facility], [place], [address], 09/23/2024 07:07:16 09/23/19 25 09/23/2024 CBC WITH DIFFE RENTI AL/PL ATELE T neutrophils 66 % not estab. normal Not Available [facility] ([facility]) [address] [facility], [place], [address], 09/23/2024 07:07:16 09/23/19 25 09/23/2024 CBC WITH DIFFE RENTI AL/PL ATELE T lymphs 21 % not estab. normal Not Available [facility] ([facility]) [address] [facility], [place], [address], 09/23/2024 07:07:16 09/23/19 25 09/23/2024 CBC WITH DIFFE RENTI AL/PL ATELE T monocytes 8 % not estab. normal Not Available [facility] ([facility]) [address] [facility], [place], [address], 09/23/2024 07:07:16 09/23/19 25 09/23/2024 CBC WITH DIFFE RENTI AL/PL ATELE T eos 4 % not estab. normal Not Available [facility] ([facility]) [address] [facility], [place], [address], 09/23/2024 07:07:16 09/23/19 25 09/23/2024 CBC WITH DIFFE RENTI AL/PL ATELE T basos 1 % not estab. normal Not Available [facility] ([facility]) [address] [facility], [place], [address], 09/23/2024 07:07:16 09/23/19 25 09/23/2024 CBC WITH DIFFE RENTI AL/PL ATELE T immature cells GERMAN INSTRUCTOR Not Available [facility] ([facility]) [address] [facility], [place], [address], 09/23/2024 07:07:16 09/23/19 25 09/23/2024 CBC WITH DIFFE RENTI AL/PL ATELE T neutrophils (absolute) 7.2 x10e3 /uL 1.4-7. 0 above high normal Not Available [facility] ([facility]) [address] [place], [address], 09/23/2024 07:07:16 09/23/19 25 09/23/2024 CBC WITH DIFFE RENTI AL/PL ATELE T lymphs (absolute) 2.2 x10e3 /uL 0.7-3. 1 normal Not Available [facility] ([facility]) [address] [place], [address], 09/23/2024 07:07:16 09/23/19 25 09/23/2024 CBC WITH DIFFE RENTI AL/PL ATELE T monocytes(ab solute) 0.8 x10e3 /uL 0.1-0. 9 normal Not Available [facility] ([facility]) [address] [place], [address], 09/23/2024 07:07:16 09/23/19 25 09/23/2024 CBC WITH DIFFE RENTI AL/PL ATELE T eos (absolute) 0.5 x10e3 /uL 0.0-0. 4 above high normal Not Available [facility] ([facility]) [address] [place], [address], 09/23/2024 07:07:16 09/23/1909/23/2024 CBC WITH DIFFE RENTI AL/PL ATELE T baso (absolute) 0.1 x10e3 /uL 0.0-0. 2 normal Not Available [facility] ([facility]) [address] [place], [address], 09/23/2024 07:07:16 09/23/19 25 09/23/2024 CBC WITH DIFFE RENTI AL/PL ATELE T immature granulocytes 0 % not estab. Not Available [facility] ([facility]) [address], [place], [address], 09/23/2024 07:07:16 09/23/19 25 09/23/2024 CBC WITH DIFFE RENTI AL/PL ATELE T immature grans (abs) 0.0 x10e3 /uL 0.0-0. 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 METAB OLIC PANEL (14) glucose 85 mg/dL 70-99 normal Not Available [facility] ([facility]) [address] [facility], [place], [address], 09/23/2024 07:07:16 09/23/19 25 09/23/2024 COMP. METAB OLIC PANEL (14) BUN 13 mg/dL 8-27 normal Not Available [facility] ([facility]) [address] [facility], [place], [address], 09/23/2024 07:07:16 09/23/19 25 09/23/2024 COMP. METAB OLIC PANEL (14) creatinine 1.15 mg/dL 0.76-1 .27 normal Not Available [facility] ([facility]) [address] [facility], [place], [address], 09/23/2024 07:07:16 09/23/19 25 09/23/2024 COMP. METAB OLIC PANEL (14) eGFR 70 mL/mi n/1.7 3 >59 normal Not Available [facility] ([facility]) [address] [facility], [place], [address], 09/23/2024 07:07:16 09/23/19 25 09/23/2024 COMP. METAB OLIC PANEL (14) BUN/creatini ne ratio 11 10-24 normal Not Available [facility] ([facility]) [address] [facility], [place], [address], 09/23/2024 07:07:16 09/23/19 25 09/23/2024 COMP. METAB OLIC PANEL (14) sodium 139 mmol/ L 134-14 4 normal Not Available [facility] ([facility]) [address] [facility], [place], [address], 09/23/2024 07:07:16 09/23/19 25 09/23/2024 COMP. METAB OLIC PANEL (14) potassium 4.0 mmol/ L 3.5-5. 2 normal Not Available [facility] ([facility]) [address] [facility], [place], [address], 09/23/2024 07:07:16 09/23/19 25 09/23/2024 COMP. METAB OLIC PANEL (14) chloride 98 mmol/ L 96-106 normal Not Available [facility] ([facility]) [address] [facility], [place], [address], 09/23/2024 07:07:16 09/23/19 25 09/23/2024 COMP. METAB OLIC PANEL (14) carbon dioxide, total 25 mmol/ L 20-29 normal Not Available [facility] ([facility]) [address] [facility], [place], [address], 09/23/2024 07:07:16 09/23/19 25 09/23/2024 COMP. METAB OLIC PANEL (14) calcium 9.4 mg/dL 8.6-10 .2 normal Not Available [facility] ([facility]) [address] [facility] [place], [address], 09/23/2024 07:07:16 09/23/19 25 09/23/2024 COMP. METAB OLIC PANEL (14) protein, total 7.0 g/dL 6.0-8. 5 normal Not Available [facility] ([facility]) [address] [facility], [place], [address], 09/23/2024 07:07:16 09/23/19 25 09/23/2024 COMP. METAB OLIC PANEL (14) albumin 4.2 g/dL 3.9-4. 9 normal Not Available [facility] ([facility]) [address] [facility], [place], [address], 09/23/2024 07:07:16 09/23/19 25 09/23/2024 COMP. METAB OLIC PANEL (14) globulin, total 2.8 g/dL 1.5-4. 5 Not Available [facility] ([facility]) [address] [facility], [place], [address], 09/23/2024 07:07:16 09/23/19 25 09/23/2024 COMP. METAB OLIC PANEL (14) bilirubin, total 0.5 mg/dL 0.0-1. 2 normal Not Available [facility] ([facility]) [address] [facility] [place], [address], 09/23/2024 07:07:16 09/23/19 25 09/23/2024 COMP. METAB OLIC PANEL (14) alkaline phosphatase 89 IU/L 44-121 normal Not Available [facility] ([facility]) [address] [facility], [place], [address], 09/23/2024 07:07:16 09/23/19 25 09/23/2024 COMP. METAB OLIC PANEL (14) AST (SGOT) 16 IU/L 0-40 normal Not Available [facility] ([facility]) [address] [facility] [place], [address], 09/23/2024 07:07:16 09/23/19 25 09/23/2024 COMP. METAB OLIC PANEL (14) ALT (SGPT) 11 IU/L 0-44 normal Not Available [facility] ([facility]) [address] [facility] [place], [address], 09/23/2024 07:07:16 09/23/19 25 09/23/2024 LIPID PANEL cholesterol, total 129 mg/dL 100-19 9 normal Not Available [facility] ([facility]) [address] [place], [address], 09/23/2024 07:07:17 09/23/19 25 09/23/2024 LIPID PANEL triglyceride s 146 mg/dL 0-149 normal Not Available [facility] ([facility]) [address] [place], [address], 09/23/2024 07:07:17 09/23/19 25 09/23/2024 LIPID PANEL HDL cholesterol 38 mg/dL >39 below low normal Not Available [facility] ([facility]) [address] [place], [address], 09/23/2024 07:07:17 09/23/19 25 09/23/2024 LIPID PANEL VLDL cholesterol aurelio 25 mg/dL 5-40 Not Available [facility] ([facility]) [address] [place], [address], 09/23/2024 07:07:17 09/23/19 25 09/23/2024 LIPID PANEL LDL chol calc (nih) 66 mg/dL 0-99 Not Available [facility] ([facility]) [address] [place], [address], 09/23/2024 07:07:17 09/23/19 25 09/23/2024 LIPID PANEL LDL calc comment: GERMAN INSTRUCTOR Not Available [facility] ([facility]) [address] [facility], [place], [address], 09/23/2024 07:07:17 09/23/19 25 09/23/2024 VITAM IN B12 AND FOLAT E vitamin B12 321 pg/mL 232-12 45 normal Not Available [facility] ([facility]) [address] [facility], [place], [address], 09/23/2024 07:07:18 09/23/19 25 09/23/2024 VITAM IN B12 AND FOLAT E folate (folic acid), serum 5.4 NG/mL >3.0 normal A serum folat e ginny ntrat ion of less than 3.1 ng/mL is consi dered to repre sent clini aurelio defic iency . Not Available [facility] ([facility]) [address] [facility], [place], [address], 09/23/2024 07:07:18 09/23/19 25 09/23/2024 HCV ANTIB SAHARA RFX TO QUANT PCR HCV Ab Non Reacti ve non reacti ve Not Available [facility] ([facility]) [address] [facility], [place], [address], 09/23/2024 07:07:18 09/23/1909/23/2024 HCV ANTIB SAHARA RFX TO QUANT PCR interpretati on: Commen t Not infec michelle with HCV unles s early or acute infec tion is suspe cted (whic h may be delay ed in an immun ocomp romis ed indiv idual ), or other evide nce exist s to indic ate HCV infec tion. Not Available [facility] ([facility]) [address] [facility], [place], [address], 09/23/2024 07:07:18 09/23/19 25 09/23/2024 HEMOG LOBIN A1C hemoglobin A1C 5.9 % 4.8-5. 6 above high normal Predi abete s: 5.7 - 6.4 Diabe braden: >6.4 Glyce nicko contr ol for adult s with diabe braden: <7.0 Not Available [facility] ([facility]) [address] [facility], [place], [address], 09/23/2024 07:07:19 09/23/1909/23/2024 VITAM IN D, 25-HY [...] um and D. Jere samson DC: [facility] Press . 2. Dolores mejía MF, Shannan orellana [place], Valerie off-F errar i PRATER, et al. Evalu ation , treat ment, and preve ntion of vitam in D defic iency : an Endoc rine Socie ty clini aurelio pract ice guide line. JCEM. 2010; 96(7) :1911 -30. Not Available [facility] ([facility]) [address] [facility], [place], [address], 09/23/2024 07:07:19 12/30/1912/30/2024 FE+TI BC+FE R iron bind.cap.(TI BC) 373 ug/dL 250-45 0 normal Not Available [facility] ([facility]) [address] [facility], [place], [address], 12/30/2024 07:08:13 12/30/19 25 12/30/2024 FE+TI BC+FE R UIBC 345 ug/dL 111-34 3 above high normal Not Available [facility] ([facility]) [address] [place], [address], 12/30/2024 07:08:13 12/30/19 25 12/30/2024 FE+TI BC+FE R iron 28 ug/dL 38-169 below low normal Not Available [facility] ([facility]) [address] [place], [address], 12/30/2024 07:08:13 12/30/19 25 12/30/2024 FE+TI BC+FE R iron saturation 8 % 15-55 alert low Not Available [facility] ([facility]) [address] [place], [address], 12/30/2024 07:08:13 12/30/1912/30/2024 FE+TI BC+FE R ferritin 90 NG/mL 30-400 normal Not Available [facility] ([facility]) [address] [place], [address], 12/30/2024 07:08:13 12/30/19 25 12/30/2024 TSH+F REE T4 TSH 0.734 uIU/m L 0.450- 4.500 normal Not Available [facility] ([facility]) [address] [place], [address], 12/30/2024 07:08:13 12/30/1912/30/2024 TSH+F REE T4 T4,free(dire ct) 1.15 NG/dL 0.82-1 .77 normal Not Available [facility] ([facility]) [address] [place], [address], 12/30/2024 07:08:13 12/30/19 25 12/30/2024 CBC WITH DIFFE RENTI AL/PL ATELE T WBC 12.8 x10e3 /uL 3.4-10 .8 above high normal Not Available [facility] ([facility]) [address] [facility], [place], [address], 12/30/2024 07:08:14 12/30/1912/30/2024 CBC WITH DIFFE RENTI AL/PL ATELE T RBC 4.66 x10e6 /uL 4.14-5 .80 normal Not Available [facility] ([facility]) [address] [facility], [place], [address], 12/30/2024 07:08:14 12/30/1912/30/2024 CBC WITH DIFFE RENTI AL/PL ATELE T hemoglobin 12.3 g/dL 13.0-1 7.7 below low normal Not Available [facility] ([facility]) [address] [facility], [place], [address], 12/30/2024 07:08:14 12/30/1912/30/2024 CBC WITH DIFFE RENTI AL/PL ATELE T hematocrit 40.0 % 37.5-5 1.0 normal Not Available [facility] ([facility]) [address] [place], [address], 12/30/2024 07:08:14 12/30/19 25 12/30/2024 CBC WITH DIFFE RENTI AL/PL ATELE T MCV 86 fL 79-97 normal Not Available [facility] ([facility]) [address] [place], [address], 12/30/2024 07:08:14 12/30/1912/30/2024 CBC WITH DIFFE RENTI AL/PL ATELE T MCH 26.4 pg 26.6-3 3.0 below low normal Not Available [facility] ([facility]) [address] [place], [address], 12/30/2024 07:08:14 12/30/19 25 12/30/2024 CBC WITH DIFFE RENTI AL/PL ATELE T MCHC 30.8 g/dL 31.5-3 5.7 below low normal Not Available [facility] ([facility]) [address] [facility], [place], [address], 12/30/2024 07:08:14 12/30/1912/30/2024 CBC WITH DIFFE RENTI AL/PL ATELE T RDW 14.5 % 11.6-1 5.4 Not Available [facility] ([facility]) [address] [facility], [place], [address], 12/30/2024 07:08:14 12/30/1912/30/2024 CBC WITH DIFFE RENTI AL/PL ATELE T platelets 258 x10e3 /uL 150-45 0 normal Not Available [facility] ([facility]) [address] [facility], [place], [address], 12/30/2024 07:08:14 12/30/1912/30/2024 CBC WITH DIFFE RENTI AL/PL ATELE T neutrophils 69 % not estab. normal Not Available [facility] ([facility]) [address] [facility], [place], [address], 12/30/2024 07:08:14 12/30/1912/30/2024 CBC WITH DIFFE RENTI AL/PL ATELE T lymphs 19 % not estab. normal Not Available [facility] ([facility]) [address] [facility], [place], [address], 12/30/2024 07:08:14 12/30/19 25 12/30/2024 CBC WITH DIFFE RENTI AL/PL ATELE T monocytes 9 % not estab. normal Not Available [facility] ([facility]) [address] [place], [address], 12/30/2024 07:08:14 12/30/19 25 12/30/2024 CBC WITH DIFFE RENTI AL/PL ATELE T eos 2 % not estab. normal Not Available [facility] ([facility]) [address] [place], [address], 12/30/2024 07:08:14 12/30/1912/30/2024 CBC WITH DIFFE RENTI AL/PL ATELE T basos 0 % not estab. normal Not Available [facility] ([facility]) [address] [facility], [place], [address], 12/30/2024 07:08:14 12/30/1912/30/2024 CBC WITH DIFFE RENTI AL/PL ATELE T immature cells GERMAN INSTRUCTOR Not Available [facility] ([facility]) [address] [facility], [place], [address], 12/30/2024 07:08:14 12/30/1912/30/2024 CBC WITH DIFFE RENTI AL/PL ATELE T neutrophils (absolute) 8.9 x10e3 /uL 1.4-7. 0 above high normal Not Available [facility] ([facility]) [address] [facility], [place], [address], 12/30/2024 07:08:14 12/30/19 25 12/30/2024 CBC WITH DIFFE RENTI AL/PL ATELE T lymphs (absolute) 2.4 x10e3 /uL 0.7-3. 1 normal Not Available [facility] ([facility]) [address] [place], [address], 12/30/2024 07:08:14 12/30/1912/30/2024 CBC WITH DIFFE RENTI AL/PL ATELE T monocytes(ab solute) 1.2 x10e3 /uL 0.1-0. 9 above high normal Not Available [facility] ([facility]) [address] [place], [address], 12/30/2024 07:08:14 12/30/19 25 12/30/2024 CBC WITH DIFFE RENTI AL/PL ATELE T eos (absolute) 0.3 x10e3 /uL 0.0-0. 4 normal Not Available [facility] ([facility]) [address] [facility], [place], [address], 12/30/2024 07:08:14 12/30/19 25 12/30/2024 CBC WITH DIFFE RENTI AL/PL ATELE T baso (absolute) 0.0 x10e3 /uL 0.0-0. 2 normal Not Available [facility] ([facility]) [address] [facility], [place], [address], 12/30/2024 07:08:14 12/30/19 25 12/30/2024 CBC WITH DIFFE RENTI AL/PL ATELE T immature granulocytes 1 % not estab. Not Available [facility] ([facility]) [address] [facility], [place], [address], 12/30/2024 07:08:14 12/30/19 25 12/30/2024 CBC WITH DIFFE RENTI AL/PL ATELE T immature grans (abs) 0.1 x10e3 /uL 0.0-0. 1 Not Available [facility] ([facility]) [address] [facility], [place], [address], 12/30/2024 07:08:14 12/30/19 25 12/30/2024 CBC WITH DIFFE RENTI AL/PL ATELE T NRBC GERMAN INSTRUCTOR Not Available [facility] ([facility]) [address] [facility], [place], [address], 12/30/2024 07:08:14 12/30/19 25 12/30/2024 CBC WITH DIFFE RENTI AL/PL ATELE T hematology comments: GERMAN INSTRUCTOR Not Available [facility] ([facility]) [address] [place], [address], 12/30/2024 07:08:14 12/30/19 25 12/30/2024 COMP. METAB OLIC PANEL (14) glucose 86 mg/dL 70-99 normal Not Available [facility] ([facility]) [address] [facility], [place], [address], 12/30/2024 07:08:14 12/30/19 25 12/30/2024 COMP. METAB OLIC PANEL (14) BUN 22 mg/dL 8-27 normal Not Available [facility] ([facility]) [address] [facility] [place], [address], 12/30/2024 07:08:14 12/30/19 25 12/30/2024 COMP. METAB OLIC PANEL (14) creatinine 1.17 mg/dL 0.76-1 .27 normal Not Available [facility] ([facility]) [address] [facility] [place], [address], 12/30/2024 07:08:14 12/30/19 25 12/30/2024 COMP. METAB OLIC PANEL (14) eGFR 68 mL/mi n/1.7 3 >59 normal Not Available [facility] ([facility]) [address] [facility], [place], [address], 12/30/2024 07:08:14 12/30/19 25 12/30/2024 COMP. METAB OLIC PANEL (14) BUN/creatini ne ratio 19 10-24 normal Not Available [facility] ([facility]) [address] [facility], [place], [address], 12/30/2024 07:08:14 12/30/19 25 12/30/2024 COMP. METAB OLIC PANEL (14) sodium 136 mmol/ L 134-14 4 normal Not Available [facility] ([facility]) [address] [facility] [place], [address], 12/30/2024 07:08:14 12/30/19 25 12/30/2024 COMP. METAB OLIC PANEL (14) potassium 4.8 mmol/ L 3.5-5. 2 normal Not Available [facility] ([facility]) [address] [place], [address], 12/30/2024 07:08:14 12/30/1912/30/2024 COMP. METAB OLIC PANEL (14) chloride 96 mmol/ L 96-106 normal Not Available [facility] ([facility]) [address], [place], [address], 12/30/2024 07:08:14 12/30/19 25 12/30/2024 COMP. METAB OLIC PANEL (14) carbon dioxide, total 25 mmol/ L 20-29 normal Not Available [facility] ([facility]) [address], [place], [address], 12/30/2024 07:08:14 12/30/1912/30/2024 COMP. METAB OLIC PANEL (14) calcium 9.1 mg/dL 8.6-10 .2 normal Not Available [facility] ([facility]) [address] [facility] [place], [address], 12/30/2024 07:08:14 12/30/1912/30/2024 COMP. METAB OLIC PANEL (14) protein, total 6.4 g/dL 6.0-8. 5 normal Not Available [facility] ([facility]) [address] [facility] [place], [address], 12/30/2024 07:08:14 12/30/1912/30/2024 COMP. METAB OLIC PANEL (14) albumin 3.8 g/dL 3.9-4. 9 below low normal Not Available [facility] ([facility]) [address] [facility] [place], [address], 12/30/2024 07:08:14 12/30/1912/30/2024 COMP. METAB OLIC PANEL (14) globulin, total 2.6 g/dL 1.5-4. 5 Not Available [facility] ([facility]) [address] [facility] [place], [address], 12/30/2024 07:08:14 12/30/1920 0112/30/2024 COMP. METAB OLIC PANEL (14) bilirubin, total 0.8 mg/dL 0.0-1. 2 normal Not Available [facility] ([facility]) [address] [facility] [place], [address], 12/30/2024 07:08:14 12/30/19 25 12/30/2024 COMP. METAB OLIC PANEL (14) alkaline phosphatase 69 IU/L 47-123 normal Not Available [facility] ([facility]) [address] [facility] [place], [address], 12/30/2024 07:08:14 12/30/1912/30/2024 COMP. METAB OLIC PANEL (14) AST (SGOT) 11 IU/L 0-40 normal Not Available [facility] ([facility]) [address] [place], [address], 12/30/2024 07:08:14 12/30/1912/30/2024 COMP. METAB OLIC PANEL (14) ALT (SGPT) 8 IU/L 0-44 normal Not Available [facility] ([facility]) [address] [place], [address], 12/30/2024 07:08:14 12/30/19 25 12/30/2024 LIPID PANEL cholesterol, total 117 mg/dL 100-19 9 normal Not Available [facility] ([facility]) [address] [place], [address], 12/30/2024 07:08:15 12/30/1912/30/2024 LIPID PANEL triglyceride s 100 mg/dL 0-149 normal Not Available [facility] ([facility]) [address] [place], [address], 12/30/2024 07:08:15 12/30/19 25 12/30/2024 LIPID PANEL HDL cholesterol 43 mg/dL >39 normal Not Available [facility] ([facility]) [address] [facility], [place], [address], 12/30/2024 07:08:15 12/30/1912/30/2024 LIPID PANEL VLDL cholesterol aurelio 19 mg/dL 5-40 Not Available [facility] ([facility]) [address] [facility], [place], [address], 12/30/2024 07:08:15 12/30/1912/30/2024 LIPID PANEL LDL chol calc ([facility]) 55 mg/dL 0-99 Not Available [facility] ([facility]) [address] [facility], [place], [address], 12/30/2024 07:08:15 12/30/1912/30/2024 LIPID PANEL LDL calc comment: GERMAN INSTRUCTOR Not Available [facility] ([facility]) [address] [facility], [place], [address], 12/30/2024 07:08:15 12/30/1912/30/2024 VITAM IN B12 AND FOLAT E vitamin B12 247 pg/mL 232-12 45 normal Not Available [facility] ([facility]) [address] [facility], [place], [address], 12/30/2024 07:08:15 12/30/1912/30/2024 VITAM IN B12 AND FOLAT E folate (folic acid), serum 3.8 NG/mL >3.0 normal A serum folat e ginny ntrat ion of less than 3.1 ng/mL is consi dered to repre sent clini aurelio defic iency . Not Available [facility] ([facility]) [address] [facility], [place], [address], 12/30/2024 07:08:15 12/30/1912/30/2024 HEMOG LOBIN A1C hemoglobin A1C 5.9 % 4.8-5. 6 above high normal Predi abete s: 5.7 - 6.4 Diabe braden: >6.4 Glyce nicko contr ol for adult s with diabe braden: <7.0 Not Available [facility] ([facility]) [address] [facility], [place], [address], 12/30/2024 07:08:15 12/30/1912/30/2024 CANCE R ANTIG EN (CA) 125 cancer antigen (Ca) 125 11.2 U/mL not estab. normal Twan Diagn ostic s Elect twan milum inesc ence Immun oassa y (ECLI A) Value s obtai rell with diffe rent assay metho ds or kits canno t be used inter [facility] eably . Resul ts canno t be inter prete d as absol [place] evide nce of the prese nce or [facility]en [facility]. Not Available [facility] ([facility]) [address] [facility], [place], [address], 12/30/2024 07:08:16 12/30/1912/30/2024 PROST ATE-S PECIF IC AG prostate specific [...] t be inter prete d as absol [place] evide nce of the prese nce or absen ce of [place] se. Not Available [facility] ([facility]) [address] [facility], [place], [address], 12/30/2024 07:08:16 12/30/1912/30/2024 VITAM IN D, 25-HY [...] um and D. Jere samson DC: The [facility] Press . 2. Dolores mejía MF, Shannan orellana [place], Valerie off-F errar i PRATER, et al. Evalu ation , treat ment, and preve ntion of vitam in D defic iency : an Endoc rine Socie ty clini aurelio pract ice guide line. JCEM. 2010; 96(7) :[phone] -30. Not Available [facility] ([facility]) [address], [place], [address], 12/30/2024 07:08:16 01/10/20 25 01/09/2025 LDCT, chest , for lung cance r sushil avendaño No observ ation record ed. [email or web address] [facility] [address], [place], [address], 01/09/2025 15:30:49 Result Notes None recorded. Problems Name Problem SNOMED Code Status Onset Date Resolution Date Notes Provider Name and Address Organization Details Recorded Time Hyperten sive disorder 66183906 Completed 201612/13/2017 Problem Code: I10; Problem Code Type: ICD-10; Not Available [facility] 2 21:20:38 Benign essentia l hyperten roberta 2348790 Active 2016 Problem Code: 401.1; Problem Code Type: ICD-9; Not Available [facility] 4 17:03:23 Gastroes ophageal reflux disease 358615700 Completed 201609/27/2020 Problem Code: 530.81; Problem Code Type: ICD-9; Not Available [facility], [facility] 21:20:44 Tobacco dependen ce caused by cigarett es 22596711539 539583 Completed 201712/26/2021 Problem Code: F17.210; Problem Code Type: ICD-10; KRISTYN murillo [employer]. 2 08:02:28 Gastroes ophageal reflux disease without esophagi tis 146102510 Active 2017 Not Available [facility] 4 17:03:23 Dyspnea 300803620 Completed 201701/07/2018 Problem Code: R06.02; Problem Code Type: ICD-10; Not Available [facility] 2 21:20:39 Tobacco dependen ce syndrome 12759117 Completed 201709/27/2020 Problem Code: 305.1; Problem Code Type: ICD-9; Not Available [facility] 2 21:20:43 Gastroes ophageal reflux disease 121460453 Completed 201709/27/2020 Problem Code: 530.81; Problem Code Type: ICD-9; Not Available [facility] 2 21:20:45 Mixed hyperlip idemia 265715743 Active 2017 Problem Code: E78.2; Problem Code Type: ICD-10; Not Available [facility] 4 17:03:23 Dyspnea 077304802 Completed 201702/11/2018 Problem Code: R06.02; Problem Code Type: ICD-10; Not Available [facility] 21:20:39 Abnormal weight gain 678782385 Completed 201702/11/2018 Problem Code: R63.5; Problem Code Type: ICD-10; Not Available [facility] 21:20:39 Pain of right lower leg 23166599719 9108 Completed 201803/08/2020 Problem Code: M79.661; Problem Code Type: ICD-10; Not Available [facility] 2 21:20:38 Pain of left lower leg 89538323692 9101 Completed 201803/08/2020 Problem Code: M79.662; Problem Code Type: ICD-10; Not Available [facility] 2 21:20:39 Localize d edema 191437315 Completed 201803/08/2020 Problem Code: R60.0; Problem Code Type: ICD-10; Not Available [facility] 2 21:20:39 General examinat ion of patient Completed 201903/08/2020 Not Available [facility] 2 21:20:40 Endocrin e/[place] lic screenin g Completed 201912/26/2021 Problem Code: Z13.29; Problem Code Type: ICD-10; KRISTYN murillo, [employer]. 2 08:02:10 Screenin g for malignan t neoplasm of prostate Completed 201912/26/2021 Problem Code: Z12.5; Problem Code Type: ICD-10; KRISTYN murillo, [employer]. 2 08:02:11 Body mass index 30+ - obesity 352839798 Active 2019 Problem Code: Z68.31; Problem Code Type: ICD-10; Not Available [facility] 4 17:03:23 Screenin g for malignan t neoplasm of colon Completed 201903/08/2020 Not Available [facility] 2 21:20:41 Liver function tests outside referenc e range 331208218 Active 2019 Problem Code: R94.5; Problem Code Type: ICD-10; Not Available [facility] 4 17:03:23 [employer] license medical examinat ion Completed 201912/26/2021 Problem Code: Z02.4; Problem Code Type: ICD-10; KRISTYN murillo, [employer] 2 08:02:10 Nicotine dependen ce 28550985 Completed 202009/27/2020 Problem Code: F17.200; Problem Code Type: ICD-10; Not Available [facility] 21:20:38 Low vision right eye, normal vision left eye 67389454534 9106 Completed 202012/26/2021 [id number] es: 'H54.51' ; KRISTYN murillo, [employer] 08:02:11 Body mass index 25-29 - overweig ht 331270608 Completed 202005/28/2020 Problem Code: Z68.29; Problem Code Type: ICD-10; Not Available [facility] 21:20:42 Ruptured abdomina l aortic aneurysm 85354893 Active 2020 Problem Code: I71.3; Problem Code Type: ICD-10; Not Available [facility] 17:03:23 On examinat ion - inspecti on of blood Completed 202009/27/2020 Not Available [facility] 21:20:39 Wheezing 82618108 Completed 202012/26/2021 Problem Code: R06.2; Problem Code Type: ICD-10; KRISTYN murillo, [employer]. 08:02:11 Viral screenin g Completed 202003/07/2021 Problem Code: Z11.52; Problem Code Type: ICD-10; Not Available [facility] 21:20:40 Pre-surg iraida testing Completed 202012/26/2021 Problem Code: Z01.812; Problem Code Type: ICD-10; KRISTYN murillo [employer]. 08:02:10 Body mass index 30+ - obesity 752612506 Completed 202109/26/2021 Problem Code: Z68.31; Problem Code Type: ICD-10; Not Available [facility] 21:20:43 Body mass index 30+ - obesity 575415891 Completed 202109/26/2021 Problem Code: Z68.33; Problem Code Type: ICD-10; Not Available [facility] 2 21:20:42 Nicotine dependen ce 89078497 Active 2021 Problem Code: F17.200; Problem Code Type: ICD-10; Not Available [facility] 4 17:03:23 COVID-19 140708099 Active 2023 Christin Herrera NP [address] [place] [address], [address] [place] [address] , [employer] 4 09:12:45 Headache 96324792 Active 2023 Christin Herrera NP [address] [place] [address], [address] [place] [address] , [employer] 4 09:32:18 Hyperlip idemia 54628031 Active 2024 Dora murillo, [employer] 5 14:43:04 Fatigue 10517625 Active 2024 Dora murillo, [employer] 5 14:43:04 Hypergly cemia 89793588 Active 2024 Dora murillo, [employer] 5 14:43:04 Viral wart on finger 555729926 Active 2024 Dora murillo, [employer] 5 10:26:48 Disorder of stomach 47154079 Active 2024 Cherry Nieves APRN [address] [place] [address], [address] [place] [address] , [employer] 5 15:31:11 Abnormal weight loss 632709811 Active 2024 Cherry Nieves APRN [address] [place] [address], [address] [place] [address] , [employer] 5 15:31:24 Problem Notes None recorded. Procedures Surgical History Date Name Laterality Status Provider Name and Address Organization Details Recorded Time 10/28/ 2025 ESOPHAGOGASTRODUODENOSCOPY WITH BIOPSY (SURG) completed GELY CONTRERAS [employer], [employer] 5 10:05:35 2024 Cryosurgery Warts/Skin Tags completed Jasmin Blancas [employer] 5 10:27:53 three dimensional ultrasonography of abdominal aortic endovascular aneurysm repair with contrast completed KRISTYN JOYNER [employer] 2 08:05:24 Unlisted procedure shoulder complete d KRISTYN JOYNER [employer] 2 08:05:39 Imaging Results None recorded. Procedure Notes None recorded. Medical Equipment None Reported. Allergies Allergen ID Allergen Name Allergen Category Reaction Reaction Severity Criticality Documentation Date Start Date Code Code System Note Provider Name and Address Organization Details Recorded Time 84991 atorvasta tin calcium medicatio n Not available Not available Not available 12/02/2021 61752 RxNorm KRISTYN murillo [employer] 2 08:01:11 Medications Name Sig Start Date [...] Updated DateTime 5 182.88 cm 28.9 kg/m2 27671.1 7 g 75 /min 90 % 90 % 173/71 mm[Hg] 168/78 mm[Hg] 160/62 mm[Hg] Dora Blancas [facility] [employer] [facility]. 5 08:47:21 Date Recorded Body height Body mass index (BMI) Body weight Heart rate Oxygen saturation Oxygen saturation in Arterial blood by Pulse oximetry Systolic And Diastolic Provider Name and Address Organization Details Last Updated DateTime 5 182.88 cm 27.7 kg/m2 98938.8 4 g 97 /min 91 % 91 % 132/80 mm[Hg] Dora [employer] 5 15:34:10 Date Recorded Body height Body mass index (BMI) Body weight Heart rate Oxygen saturation Oxygen saturation in Arterial blood by Pulse oximetry Systolic And Diastolic Provider Name and Address Organization Details Last Updated DateTime 5 182.88 cm 27.4 kg/m2 77794.6 6 g 74 /min 90 % 90 % 134/68 mm[Hg] Dora [email or web address] 5 08:38:23 Date Recorded Body height Body mass index (BMI) Body weight Heart rate Oxygen saturation Oxygen saturation in Arterial blood by Pulse oximetry Systolic And Diastolic Provider Name and Address Organization Details Last Updated DateTime 5 182.88 cm 26.6 kg/m2 95141.1 g 86 /min 89 % 89 % 133/62 mm[Hg] Dora [employer] 5 08:23:15 Date Recorded Body height Body mass index (BMI) Body weight Heart rate Oxygen saturation Oxygen saturation in Arterial blood by Pulse oximetry Systolic And Diastolic Provider Name and Address Organization Details Last Updated DateTime 4 182.88 cm 28.3 kg/m2 86587.8 1 g 78 /min 92 % 92 % 132/67 mm[Hg] Dora [employer] 4 08:15:14 Social History Question Answer Notes LastModified by Organizat ion Details LastModified Time Tobacco Smoking Status Current Every Day Smoker KRISTYN murillo [employer]. 12/26/2021 08:03:51 Do You Have An Advance Directive? No [email or web address] Information n ot available 12/26/2021 Are You Blind Or Do You Have Difficulty Seeing? No [email or web address] Information n ot available 12/26/2021 Are You A Caregiver? No [email or web address] Information not available 04/03/2022 In The 14 Days Before Symptom Onset, Have You Had Close Contact With A Laboratory-confirm ed COVID-19 While That Case Was Ill? No [email or web address] Information n ot available 04/03/2022 In The 14 Days Before Symptom Onset, Have You Had Close Contact With A Person Who Is Under Investigation For COVID-19 While That Person Was Ill? No [email or web address] Information not available 04/03/2022 Have You Been To An Area Known To Be High Risk For COVID-19? No [email or web address] Information not available 12/26/2021 Are You Deaf Or Do You Have Serious Difficulty Hearing? No [email or web address] Information not available 12/26/2021 What Type Of Diet Are You Following? REGULAR [email or web address] Information n ot available 12/26/2021 Have There Been Any Changes To Your Family Or Social Situation? No [email or web address] Information no t available 04/03/2022 Do You Have A Medical Power Of Facsimile Machine Operator? No [email or web address] Information not available 12/26/2021 What Was The Date Of Your Most Recent Tobacco Screening? 12/29/2024 Information not available 12/29/2024 What Is Your Current Pack Years? 30ormorepack years [email or web address] Information not available 12/26/2021 What Is Your Relationship Status? [email or web address] Information not available 12/26/2021 Do You Use Your Seat Belt Or Car Seat Routinely? Yes [email or web address] Information not available 04/03/2022 Are You Passively Exposed To Smoke? Yes [email or web address] Information no t available 04/03/2022 Are There Any Smokers In Your House? Yes [email or web address] Information not available 04/03/2022 How Much Tobacco Do You Smoke? 2 PPD [email or web address] Information not available 12/26/2021 Do You Participate In Social Media? No [email or web address] Information not available 11/17/2023 Do You Use Sunscreen Routinely? No [email or web address] Information not available 04/03/2022 Has Tobacco Cessation Counseling Been Provided? Yes Information not available 10/15/2022 On What Date Was Tobacco Cessation Counseling Provided? 12/29/2024 Information not available 12/29/2024 Have You Recently Traveled Abroad? No [email or web address] Information not available 12/26/2021 Do You Have Difficulty Walking Or Climbing Stairs? No [email or web address] Information not available 12/26/2021 Are You Currently In School? No [email or web address] Information not available 12/26/2021 Do You Have Any Dietary Restrictions? No [email or web address] Information not available 11/17/2023 Sex: Male Functional Status Question Answer Note LastModified by Organizat ion Details LastModified Time Do you use any illicit or recreational drugs? No Information not available 04/03/2022 Do you or have you ever used any other forms of tobacco or nicotine? No [email or web address] Information not available 11/17/2023 What is your level of alcohol consumption? None history of alcoholism [email or web address] Information not available 12/26/2021 Are you currently employed? Yes [email or web address] Information not available 12/26/2021 Do you have transportation difficulties? No [email or web address] Information not available 12/26/2021 Are you able to walk independently without assistance or assistive devices? YESWOREST [email or web address] Information not available 12/26/2021 Do you have difficulty doing errands alone? No [email or web address] Information not available 12/26/2021 Are you able to care for yourself independently? Yes [email or web address] Information not available 12/26/2021 Do you have difficulty dressing, bathing, grooming, or toileting? No [email or web address] Information not available 12/26/2021 Mental Status Question Answer Note LastModified by Organization D etails LastModified Time Do you have difficulty concentrating, remembering or making decisions? No [email or web address] Information no t available 12/26/2021 Family History Relationship Description Onset Age of this Age Resolved Age Notes LastModified by Organization Details LastModified Time Son Family history of drug abuse [email or web address] Not available 11/29 08:03:29 Mother Family history of neurological disorder [email or web address] Not available 12/26 08:03:23 Father Family history of Hypertension [email or web address] Not available 08:03:20 Medical History Condition Response Hospitalizations N Emergency room visit since last appointm ent. N Hypertension Y Immunizations Vaccine Type Date Status Note Provider Name and Address Organization Details Recorded Time COVID-19 vaccine, vector-nr, rS-Ad26, PF, 0.5 mL 021 completed Not Available [facility] 05/04/2023 17:03:24 zoster recombinant 024 cancelled patient objection Theresa Hein APRN [address] [place], [address], [employer] 10/01/2023 09:01:08 pneumococcal polysaccharide PPV23 024 cancelled patient objection Theresa Hein APRN [address] [place], [address], [facility] [employer] 10/01/2023 09:01:08 COVID-19 vaccine, vector-nr, rS-Ad26, PF, 0.5 mL 022 completed Not Available [facility] 05/04/2023 17:03:24 Past Encounters Encounter ID Performer Location Encounter Start Date Encounter Closed Date Diagnosis/Indication Diagnosis SNOMED-CT Code Diagnosis ICD10 Code Diagnosis IMO Codes Diagnosis [id number] [place] [address] 12/26/2021 07:54:32 12/26/2021 08:32:48 Benign essential hypertension 7028627 I10 Body mass index 30+ - obesity 532651744 Z68.31 Gastroesop hageal reflux disease without esophagitis 421842581 K21.9 Mixed hyperlipidemia 267 528981 E78.2 Nicotine dependence 5629 4008 F17.200 Chronic ob structive pulmonary disease 36371964 J44.9 [id number] Theresa Hein[address] 0 04/03/2022 08:10:50 04/03/2022 08:45:34 Benign essential hypertension 7066827 I10 Gastroesop hageal reflux disease without esophagitis 576482209 K21.9 Mixed hyperlipidemia 267 024731 E78.2 Nicotine dependence 5629 4008 F17.200 Chronic ob structive pulmonary disease 28691643 J44.9 Body mass index 30+ - obesity 626015102 Z68.31 [id number] Theresa Hein[address] 0 07/03/2022 07:55:20 07/03/2022 08:40:55 Benign essential hypertension 2768401 I10 Chronic ob structive pulmonary disease 82959581 J44.9 Mixed hyperlipidemia 267 838493 E78.2 Body mass index 30+ - obesity 506098366 Z68.31 [id number] Theresa Hein [place] [address] 0 07/13/2022 16:35:05 07/13/2022 17:16:18 Melena 6323221 K92.1 Mixed hyperlipidemia 267 684470 E78.2 Body mass index 30+ - obesity 099530310 Z68.31 [id number] Theresa Hein [place] [address] 0 10/15/2022 08:23:03 10/15/2022 09:06:59 Benign essential hypertension 5375128 I10 Mixed hyperlipidemia 267 277909 E78.2 Gastroesop hageal reflux disease without esophagitis 717571027 K21.9 Body mass index 30+ - obesity 789298533 Z68.31 [id number] [place] [address] 01/01/2023 07:58:46 01/01/2023 08:42:06 Chronic obstructive pulmonary disease 22354025 J44.9 Benign ess ential hypertension 4076899 I10 Gastroesop hageal reflux disease without esophagitis 792159148 K21.9 Mixed hyperlipidemia 267 692853 E78.2 Body mass index 30+ - obesity 953351536 Z68.31 [id number] [place] [address] 04/02/2023 08:00:39 04/02/2023 08:46:15 Benign essential hypertension 0923229 I10 Mixed hyperlipidemia 267 887173 E78.2 Nocturia 518275252 R35.1 Gastroesop hageal reflux disease without esophagitis 460247581 K21.9 Chronic ob structive pulmonary disease 93309369 J44.9 Body mass index 30+ - obesity 758380382 Z68.31 [id number] [place] [address] 06/10/2023 09:27:30 06/10/2023 09:57:56 Pain of left knee joint 9707085989 06297 M25.562 Body mass index 25-29 - overweight 420896430 Z68.29 [id number] Theresa Hein [place] [address] 0 07/01/2023 08:58:04 07/01/2023 09:36:24 Chronic obstructive pulmonary disease 75773685 J44.9 Benign ess ential hypertension 6120121 I10 Gastroesop hageal reflux disease without esophagitis 952599796 K21.9 Mixed hyperlipidemia 267 484824 E78.2 Body mass index 30+ - obesity 992103204 Z68.31 [id number] Theresa Hein [place] [address] 0 10/01/2023 07:57:36 10/01/2023 08:38:51 Benign essential hypertension 8166695 I10 Screening for malignant neoplasm of colon 294110502 Z12.11 Vaccine de clined by patient 5498889312 02 Z28.20 Adult [facility] th examination 547916707 Z00.00 Body mass index 25-29 - overweight 097437999 Z68.29 Chronic ob structive pulmonary disease 91530234 J44.9 Gastroesop hageal reflux disease without esophagitis 500593308 K21.9 Mixed hyperlipidemia 267 132838 E78.2 [id number] Christin Herrera, [facility] [place] [address] 0 11/17/2023 08:24:27 11/17/2023 09:37:26 Headache 38803560 R51.9 COVID-19 127806892 U07.1 [id number] Theresa Hein [place] [id number] 0 12/31/2023 07:57:58 12/31/2023 08:33:31 Chronic obstructive pulmonary disease 00970074 J44.9 Benign ess ential hypertension 6917225 I10 Gastroesop hageal reflux disease without esophagitis 960028926 K21.9 Mixed hyperlipidemia 267 050422 E78.2 Body mass index 25-29 - overweight 760309299 Z68.29 [id number] [place] [address] 03/31/2024 08:20:15 03/31/2024 09:10:24 Fatigue 54254781 R53.83 Hyperlipidemia 45241532 E78.5 Nocturia 466082649 R35.1 Hyperglycemia 28057581 R 73.9 Vitamin D deficiency 347 31557 E55.9 Vitamin B deficiency 479 14281 E53.9 Chronic ob structive pulmonary disease 08517858 J44.9 Benign ess ential hypertension 6295916 I10 Gastroesop hageal reflux disease without esophagitis 675529394 K21.9 Mixed hyperlipidemia 267 208645 E78.2 Bilateral cramp of muscle of lower limbs 0850128092 4857798 R25.2 Body mass index 25-29 - overweight 976723137 Z68.29 [id number] [place] [address] 06/27/2024 15:20:18 06/27/2024 16:16:15 Pain of right shoulder joint 5066922876 0541226 M25.511 Benign ess ential hypertension 0218259 I10 Gastroesop hageal reflux disease without esophagitis 387661900 K21.9 Mixed hyperlipidemia 267 788595 E78.2 Vitamin D deficiency 347 81397 E55.9 Body mass index 25-29 - overweight 436499727 Z68.29 [id number] [place] [address] 09/22/2024 08:14:06 09/22/2024 08:52:48 Hyperlipidemia 19215101 E78.5 Fatigue 89011894 R53.83 Hyperglycemia 81290659 R 73.9 Viral scre ening status 411051204 Z11.59 137571 Lower resp iratory tract infection 56691192 J22 2464 Benign ess ential hypertension 7724078 I10 Gastroesop hageal reflux disease without esophagitis 180942558 K21.9 Mixed hyperlipidemia 267 573939 E78.2 Vitamin D deficiency 347 83962 E55.9 Viral wart on finger 402 233332 B07.9 79458503 Overweight in adulthood with body mass index of 25 or more but less than 30 242903941 Z68.27 475743 [id number] [place] [address] 12/29/2024 08:16:46 12/29/2024 14:18:15 Influenza vaccination declined 274763249 Z28.21 92457288 Fatigue 80252066 R53.83 6272627 Mixed hyperlipidemia 267 256827 E78.2 54297 Hyperglycemia 76695985 R 73.9 14871 Vitamin D deficiency 347 09109 E55.9 44958 Cobalamin deficiency 190 278529 E53.8 85588 Iron defic iency anemia 32000297 D50.9 55904156 Nocturia 466502276 R35.1 25042 Unintentio nal weight loss 956527071 R63.4 754500 Benign ess ential hypertension 7963823 I10 Gastroesop hageal reflux disease without esophagitis 742015168 K21.9 Screening for malignant neoplasm of colon 289128291 Z12.11 145748 Screening for malignant neoplasm of lung 767861839 Z12.2 2725029773 Overweight in adulthood with body mass index of 25 or more but less than 30 859915523 Z68.26 502212 Health Concerns Section Related Observation LastModified by Organization Detai ls LastModified Time None Recorded Concern Status LastModified by Organization Details LastModified Time None Recorded Advance Directives Directive N: Payers Insurance Date Sequence Insurance Name Policy Number Policy Rosario Covered Member ID Rosario Member ID Guarantor Name 12/28/2024 [place] [employer] [facility] Keyshawn Albarran [id number] Keyshawn Albarran 12/28/2024 2 [place] Keyshawn Albarran [id number] Keyshawn Albarran 12/28/2024 1 [facility] [id number] Keyshawn Albarran [id number] Keyshawn Albarran Notes Date Note Type Note [...] new complaints today. Theresa Hein APRN [address] [place], [address], [employer]. 12/31/2023 09:11:34 03/31/2024 text/html pt here today [...] if that helps. Theresa Hein APRN [address] [place], [address], [employer]. 03/31/2024 17:55:20 06/27/2024 text/html 68 year old [...] for xray if worsens. pt agrees Theresa Hein APRN [address] [place], [address], [employer]. 06/27/2024 16:15:33 09/22/2024 text/html pt here today [...] pt voiced understanding. Theresa Hein APRN [address] [place], [address], [employer]. 09/22/2024 10:43:50 12/29/2024 text/html pt here today [...] he is fine . 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 Theresa Hein APRN [address] [place], [address], [employer] 12/29/2024 10:55:33
--- OUTSIDE RECORDS SUMMARY | 2025-01-24 08:13 | XMS_ITS | Continuity of Care Document ---
Author Organization [place] - [employer] [facility] Address [address] [place] [address] Assessment No assessment recorded. Plan of Treatment Reminders Order Date Submit Date Provider Last Modified By Organization Details Last Modified Time Details Appointments FOLLOW UP 30 2025 08:00A M Anna Marie Hein APRN Not available Not available Not available Lab CBC w/ auto diff 2024 025 [facility]), [address] [place], [address], 12/30/2024 07:08:14 CMP, serum or plasma 2024 025 [facility]), [address] [place], [address], 12/30/2024 07:08:14 TSH + free T4, serum 2024 025 [facility]), [address] [place], [address], 12/30/2024 07:08:13 PSA, total, serum or plasma 2024 025 [facility], [address] [place], [address], 12/30/2024 07:08:16 lipid panel, serum 2024 025 [facility], [address] [place] [address], [address], 12/30/2024 07:08:15 HbA1c (hemoglob in A1c), blood 2024 [facility]), [address] [place], [address], 12/30/2024 07:08:15 ca 125, serum 2024 [facility]), [address] [place], [address], 12/30/2024 07:08:16 vitamin D, 25-hydrox y, total, serum 2024 [facility]), [address] [place], [address], 12/30/2024 07:08:16 noninvasi ve colorecta l cancer DNA + occult blood screening , QL, stool 2024 [facility], [address], [address], [place], [address], 01/19/2025 09:07:39 iron + TIBC + ferritin, serum 2024 [facility]), [address] [place], [address], 12/30/2024 07:08:13 cobalamin and folate panel, serum 2024 [facility]), [address] [place], [address], 12/30/2024 07:08:15 Referral None recorded. Procedures None recorded. Surgeries None recorded. Imaging LDCT, chest, for lung cancer screening 2024 [facility]), [address], [place], [address], 01/09/2025 11:10:11 Medication Orders carvedilo l 6.25 mg tablet 2024 [facility], [address] [place] [address], [address], 12/30/2024 09:24:51 clopidogr el 75 mg tablet 2024 [facility], [address] [place] [address], [address], 12/30/2024 09:24:53 lisinopri l 20 mg-hydroc hlorothia zide 12.5 mg tablet 2024 [facility], [address] [place] [address], [address], 12/30/2024 09:24:52 simvastat in 40 mg tablet 2024 [facility], [address] [place] [address], [address], 12/30/2024 09:24:50 ergocalci ferol (vitamin D2) 1,250 mcg (50,000 unit) capsule 2024 [facility], [address] [place] [address], [address], 12/30/2024 09:24:50 omeprazol e 40 mg capsule,d elayed release 2024 [facility], [address] [place] [address], [address], 12/30/2024 09:24:51 Patient TargetsNo targets recorded. Patient InstructionsNo instructions recorded. Reason for Referral None Reported. Results Created Date Observation Date Name Description Value Unit Range Abnormal Flag Note LastModifiedBy Organization Detail LastModifiedTime 12/30/1912/30/2024 FE+TI BC+FE R iron bind.cap.(TI BC) 373 ug/dL 250-45 0 normal Not Available [facility] ([facility]) [address] [place], [address], 12/30/2024 07:08:13 12/30/1912/30/2024 FE+TI BC+FE R UIBC 345 ug/dL 111-34 3 above high normal Not Available [facility] ([facility]) [address] [place], [address], 12/30/2024 07:08:13 12/30/1912/30/2024 FE+TI BC+FE R iron 28 ug/dL 38-169 below low normal Not Available [facility] ([facility]) [address] [facility], [place], [address], 12/30/2024 07:08:13 12/30/1912/30/2024 FE+TI BC+FE R iron saturation 8 % 15-55 alert low Not Available [facility] ([facility]) [address] [place], [address], 12/30/2024 07:08:13 12/30/1912/30/2024 FE+TI BC+FE R ferritin 90 NG/mL 30-400 normal Not Available [facility] ([facility]) [address] [place], [address], 12/30/2024 07:08:13 12/30/1912/30/2024 TSH+F REE T4 TSH 0.734 uIU/m L 0.450- 4.500 normal Not Available [facility] ([facility]) [address] [place], [address], 12/30/2024 07:08:13 12/30/1912/30/2024 TSH+F REE T4 T4,free(dire ct) 1.15 NG/dL 0.82-1 .77 normal Not Available [facility] ([facility]) [address] [place], [address], 12/30/2024 07:08:13 12/30/19 25 12/30/2024 CBC WITH DIFFE RENTI AL/PL ATELE T WBC 12.8 x10e3 /uL 3.4-10 .8 above high normal Not Available [facility] ([facility]) [address] [place], [address], 12/30/2024 07:08:14 12/30/19 25 12/30/2024 CBC WITH DIFFE RENTI AL/PL ATELE T RBC 4.66 x10e6 /uL 4.14-5 .80 normal Not Available [facility] ([facility]) [address] [place], [address], 12/30/2024 07:08:14 12/30/1912/30/2024 CBC WITH DIFFE RENTI AL/PL ATELE T hemoglobin 12.3 g/dL 13.0-1 7.7 below low normal Not Available [facility] ([facility]) [address] [place], [address], 12/30/2024 07:08:14 12/30/1912/30/2024 CBC WITH DIFFE RENTI AL/PL ATELE T hematocrit 40.0 % 37.5-5 1.0 normal Not Available [facility] ([facility]) [address] [place], [address], 12/30/2024 07:08:14 12/30/1912/30/2024 CBC WITH DIFFE RENTI AL/PL ATELE T MCV 86 fL 79-97 normal Not Available [facility] ([facility]) [address] [place], [address], 12/30/2024 07:08:14 12/30/1912/30/2024 CBC WITH DIFFE RENTI AL/PL ATELE T MCH 26.4 pg 26.6-3 3.0 below low normal Not Available [facility] ([facility]) [address] [place], [address], 12/30/2024 07:08:14 12/30/19 25 12/30/2024 CBC WITH DIFFE RENTI AL/PL ATELE T MCHC 30.8 g/dL 31.5-3 5.7 below low normal Not Available [facility] ([facility]) [address] [facility], [place], [address], 12/30/2024 07:08:14 12/30/1912/30/2024 CBC WITH DIFFE RENTI AL/PL ATELE T RDW 14.5 % 11.6-1 5.4 Not Available [facility] ([facility]) [address] [facility], [place], [address], 12/30/2024 07:08:14 12/30/1912/30/2024 CBC WITH DIFFE RENTI AL/PL ATELE T platelets 258 x10e3 /uL 150-45 0 normal Not Available [facility] ([facility]) [address] [facility], [place], [address], 12/30/2024 07:08:14 12/30/1912/30/2024 CBC WITH DIFFE RENTI AL/PL ATELE T neutrophils 69 % not estab. normal Not Available [facility] ([facility]) [address] [facility], [place], [address], 12/30/2024 07:08:14 12/30/1912/30/2024 CBC WITH DIFFE RENTI AL/PL ATELE T lymphs 19 % not estab. normal Not Available [facility] ([facility]) [address] [facility], [place], [address], 12/30/2024 07:08:14 12/30/19 25 12/30/2024 CBC WITH DIFFE RENTI AL/PL ATELE T monocytes 9 % not estab. normal Not Available [facility] ([facility]) [address] [facility], [place], [address], 12/30/2024 07:08:14 12/30/1912/30/2024 CBC WITH DIFFE RENTI AL/PL ATELE T eos 2 % not estab. normal Not Available [facility] ([facility]) [address] [facility], [place], [address], 12/30/2024 07:08:14 12/30/1912/30/2024 CBC WITH DIFFE RENTI AL/PL ATELE T basos 0 % not estab. normal Not Available [facility] ([facility]) [address] [facility], [place], [address], 12/30/2024 07:08:14 12/30/1912/30/2024 CBC WITH DIFFE RENTI AL/PL ATELE T immature cells REVIEW TRAINER Not Available [facility] ([facility]) [address] [facility], [place], [address], 12/30/2024 07:08:14 12/30/1912/30/2024 CBC WITH DIFFE RENTI AL/PL ATELE T neutrophils (absolute) 8.9 x10e3 /uL 1.4-7. 0 above high normal Not Available [facility] ([facility]) [address] [place], [address], 12/30/2024 07:08:14 12/30/19 25 12/30/2024 CBC WITH DIFFE RENTI AL/PL ATELE T lymphs (absolute) 2.4 x10e3 /uL 0.7-3. 1 normal Not Available [facility] ([facility]) [address] [place], [address], 12/30/2024 07:08:14 12/30/1912/30/2024 CBC WITH DIFFE RENTI AL/PL ATELE T monocytes(ab solute) 1.2 x10e3 /uL 0.1-0. 9 above high normal Not Available [facility] ([facility]) [address] [place], [address], 12/30/2024 07:08:14 12/30/1912/30/2024 CBC WITH DIFFE RENTI AL/PL ATELE T eos (absolute) 0.3 x10e3 /uL 0.0-0. 4 normal Not Available [facility] ([facility]) [address] [facility], [place], [address], 12/30/2024 07:08:14 12/30/1912/30/2024 CBC WITH DIFFE RENTI AL/PL ATELE T baso (absolute) 0.0 x10e3 /uL 0.0-0. 2 normal Not Available [facility] ([facility]) [address] [facility], [place], [address], 12/30/2024 07:08:14 12/30/1912/30/2024 CBC WITH DIFFE RENTI AL/PL ATELE T immature granulocytes 1 % not estab. Not Available [facility] ([facility]) [address] [facility], [place], [address], 12/30/2024 07:08:14 12/30/1912/30/2024 CBC WITH DIFFE RENTI AL/PL ATELE T immature grans (abs) 0.1 x10e3 /uL 0.0-0. 1 Not Available [facility] ([facility]) [address] [facility], [place], [address], 12/30/2024 07:08:14 12/30/1912/30/2024 CBC WITH DIFFE RENTI AL/PL ATELE T NRBC REVIEW TRAINER Not Available [facility] ([facility]) [address] [facility], [place], [address], 12/30/2024 07:08:14 12/30/1912/30/2024 CBC WITH DIFFE RENTI AL/PL ATELE T hematology comments: REVIEW TRAINER Not Available [facility] ([facility]) [address] [facility], [place], [address], 12/30/2024 07:08:14 12/30/19 25 12/30/2024 COMP. METAB OLIC PANEL (14) glucose 86 mg/dL 70-99 normal Not Available [facility] ([facility]) [address] [place], [address], 12/30/2024 07:08:14 12/30/19 25 12/30/2024 COMP. METAB OLIC PANEL (14) BUN 22 mg/dL 8-27 normal Not Available [facility] ([facility]) [address] [place], [address], 12/30/2024 07:08:14 12/30/19 25 12/30/2024 COMP. METAB OLIC PANEL (14) creatinine 1.17 mg/dL 0.76-1 .27 normal Not Available [facility] ([facility]) [address] [place], [address], 12/30/2024 07:08:14 12/30/19 25 12/30/2024 COMP. METAB OLIC PANEL (14) eGFR 68 mL/mi n/1.7 3 >59 normal Not Available [facility] ([facility]) [address] [place], [address], 12/30/2024 07:08:14 12/30/19 25 12/30/2024 COMP. METAB OLIC PANEL (14) BUN/creatini ne ratio 19 10-24 normal Not Available [facility] ([facility]) [address] [place], [address], 12/30/2024 07:08:14 12/30/19 25 12/30/2024 COMP. METAB OLIC PANEL (14) sodium 136 mmol/ L 134-14 4 normal Not Available [facility] ([facility]) [address] [place], [address], 12/30/2024 07:08:14 12/30/19 25 12/30/2024 COMP. METAB OLIC PANEL (14) potassium 4.8 mmol/ L 3.5-5. 2 normal Not Available [facility] ([facility]) [address] [place], [address], 12/30/2024 07:08:14 12/30/19 25 12/30/2024 COMP. METAB OLIC PANEL (14) chloride 96 mmol/ L 96-106 normal Not Available [facility] ([facility]) [address] [place], [address], 12/30/2024 07:08:14 12/30/19 25 12/30/2024 COMP. METAB OLIC PANEL (14) carbon dioxide, total 25 mmol/ L 20-29 normal Not Available [facility] ([facility]) [address] [place], [address], 12/30/2024 07:08:14 12/30/1912/30/2024 COMP. METAB OLIC PANEL (14) calcium 9.1 mg/dL 8.6-10 .2 normal Not Available [facility] ([facility]) [address] [facility] [place], [address], 12/30/2024 07:08:14 12/30/1912/30/2024 COMP. METAB OLIC PANEL (14) protein, total 6.4 g/dL 6.0-8. 5 normal Not Available [facility] ([facility]) [address] [facility] [place], [address], 12/30/2024 07:08:14 12/30/1912/30/2024 COMP. METAB OLIC PANEL (14) albumin 3.8 g/dL 3.9-4. 9 below low normal Not Available [facility] ([facility]) [address] [facility] [place], [address], 12/30/2024 07:08:14 12/30/19 25 12/30/2024 COMP. METAB OLIC PANEL (14) globulin, total 2.6 g/dL 1.5-4. 5 Not Available [facility] ([facility]) [address] [place], [address], 12/30/2024 07:08:14 12/30/1912/30/2024 COMP. METAB OLIC PANEL (14) bilirubin, total 0.8 mg/dL 0.0-1. 2 normal Not Available [facility] ([facility]) [address] [place], [address], 12/30/2024 07:08:14 12/30/1912/30/2024 COMP. METAB OLIC PANEL (14) alkaline phosphatase 69 IU/L 47-123 normal Not Available [facility] ([facility]) [address] [place], [address], 12/30/2024 07:08:14 12/30/1912/30/2024 COMP. METAB OLIC PANEL (14) AST (SGOT) 11 IU/L 0-40 normal Not Available [facility] ([facility]) [address] [place], [address], 12/30/2024 07:08:14 12/30/1912/30/2024 COMP. METAB OLIC PANEL (14) ALT (SGPT) 8 IU/L 0-44 normal Not Available [facility] ([facility]) [address] [place], [address], 12/30/2024 07:08:14 12/30/1912/30/2024 LIPID PANEL cholesterol, total 117 mg/dL 100-19 9 normal Not Available [facility] ([facility]) [address] [place], [address], 12/30/2024 07:08:15 12/30/1912/30/2024 LIPID PANEL triglyceride s 100 mg/dL 0-149 normal Not Available [facility] ([facility]) [address] [place], [address], 12/30/2024 07:08:15 12/30/1912/30/2024 LIPID PANEL HDL cholesterol 43 mg/dL >39 normal Not Available [facility] ([facility]) [address] [facility], [place], [address], 12/30/2024 07:08:15 12/30/19 25 12/30/2024 LIPID PANEL VLDL cholesterol aurelio 19 mg/dL 5-40 Not Available [facility] ([facility]) [address] [facility], [place], [address], 12/30/2024 07:08:15 12/30/1912/30/2024 LIPID PANEL LDL chol calc ([facility]) 55 mg/dL 0-99 Not Available [facility] ([facility]) [address] [facility], [place], [address], 12/30/2024 07:08:15 12/30/1912/30/2024 LIPID PANEL LDL calc comment: REVIEW TRAINER Not Available [facility] ([facility]) [address] [facility], [place], [address], 12/30/2024 07:08:15 12/30/1912/30/2024 VITAM IN B12 AND FOLAT E vitamin B12 247 pg/mL 232-12 45 normal Not Available [facility] ([facility]) [address] [facility], [place], [address], 12/30/2024 07:08:15 12/30/1912/30/2024 VITAM IN B12 AND FOLAT E folate (folic acid), serum 3.8 NG/mL >3.0 normal A serum folat e ginny ntrat ion of less than 3.1 ng/mL is consi dered to repre sent clini aurelio defic iency . Not Available [facility] ([facility]) [address] [facility], [place], [address], 12/30/2024 07:08:15 10/03/20 25 12/30/2024 HEMOG LOBIN A1C hemoglobin A1C 5.9 % 4.8-5. 6 above high normal Predi abete s: 5.7 - 6.4 Diabe braden: >6.4 Glyce nicko contr ol for adult s with diabe braden: <7.0 Not Available [facility] ([facility]) [address] [facility], [place], [address], 12/30/2024 07:08:15 12/30/19 25 12/30/2024 CANCE R ANTIG EN (CA) 125 cancer antigen (Ca) 125 11.2 U/mL not estab. normal Twan Diagn ostic s Elect twan milum inesc ence Immun oassa y (ECLI A) Value s obtai rell with diffe rent assay metho ds or kits canno t be [facility] . Resul ts canno t be inter prete d as absol [place] evide nce of the prese nce or absen ce of [facility] nant disea se. Not Available [facility] ([facility]) [address] [facility], [place], [address], 12/30/2024 07:08:16 12/30/19 25 12/30/2024 PROST ATE-S [...] kits canno t be used inter marquez eay . Resul ts canno t be inter prete d as absol [place] evide nce of the prese nce or absen ce of malig nant disea se. Not Available [facility] ([facility]) [address] [facility], [place], [address], 12/30/2024 07:08:16 12/30/19 25 12/30/2024 VITAM IN [...] Endoc rine Socie ty went on to community health er defin e vitam in D insuf ficie ncy as a level betwe en 21 and 29 ng/mL (2). 1. IOM (Inst itute of Medic ine). 2009. Dieta ry refer ence intak es for calci um and D. Jere samson [place]: [facility] [employer] . 2. Dolores mejía [place], Shannan orellana [place], Valerie off-F errar i PRATER, et al. Evalu ation , treat ment, and preve ntion of vitam in D defic iency : an Endoc rine Socie ty clini aurelio pract ice guide line. JCEM. 2010; 96(7) :1911 -30. Not Available [facility] ([facility]) [address] [facility], [place], [address], 12/30/2024 07:08:16 01/10/20 25 01/09/2025 LDCT, chest , for lung cance r scree jarocho No observ ation record ed. [email or web address] [facility] [address], [place], [address], 01/09/2025 15:30:49 Result Notes None recorded. Problems Name Problem SNOMED Code Status Onset Date Resolution Date Notes Provider Name and Address Organization Details Recorded Time Hyperten sive disorder 39166256 Completed 201612/13/2017 Problem Code: I10; Problem Code Type: ICD-10; Not Available [employer] 21:20:38 Benign essentia l hyperten roberta 2893145 Active 2016 Problem Code: 401.1; Problem Code Type: ICD-9; Not Available [facility] 4 17:03:23 Gastroes ophageal reflux disease 313945406 Completed 201609/27/2020 Problem Code: 530.81; Problem Code Type: ICD-9; Not Available [facility] 2 21:20:44 Tobacco dependen ce caused by cigarett es 39008920140 764547 Completed 201712/26/2021 Problem Code: F17.210; Problem Code Type: ICD-10; KRISTYN murillo, [employer]. 08:02:28 Gastroes ophageal reflux disease without esophagi tis 527353001 Active 2017 Not Available [facility] 4 17:03:23 Dyspnea 330684444 Completed 201701/07/2018 Problem Code: R06.02; Problem Code Type: ICD-10; Not Available [facility] 2 21:20:39 Tobacco dependen ce syndrome 93238351 Completed 201709/27/2020 Problem Code: 305.1; Problem Code Type: ICD-9; Not Available [facility] 2 21:20:43 Gastroes ophageal reflux disease 267434251 Completed 201709/27/2020 Problem Code: 530.81; Problem Code Type: ICD-9; Not Available [facility] 2 21:20:45 Mixed hyperlip idemia 196809922 Active 2017 Problem Code: E78.2; Problem Code Type: ICD-10; Not Available [facility] 4 17:03:23 Dyspnea 961721425 Completed 201702/11/2018 Problem Code: R06.02; Problem Code Type: ICD-10; Not Available [facility] 2 21:20:39 Abnormal weight gain 383312117 Completed 201702/11/2018 Problem Code: R63.5; Problem Code Type: ICD-10; Not Available [facility] 2 21:20:39 Pain of right lower leg 77332464633 9108 Completed 201803/08/2020 Problem Code: M79.661; Problem Code Type: ICD-10; Not Available [facility] 2 21:20:38 Pain of left lower leg 41634254458 9101 Completed 201803/08/2020 Problem Code: M79.662; Problem Code Type: ICD-10; Not Available [facility] 2 21:20:39 Localize d edema 843072545 Completed 201803/08/2020 Problem Code: R60.0; Problem Code Type: ICD-10; Not Available [facility] 2 21:20:39 General examinat ion of patient Completed 201903/08/2020 Not Available [facility] 2 21:20:40 Endocrin e/metabo lic screenin g Completed 201912/26/2021 Problem Code: Z13.29; Problem Code Type: ICD-10; KRISTYN murillo, [employer]. 2 08:02:10 Screenin g for malignan t neoplasm of prostate Completed 201912/26/2021 Problem Code: Z12.5; Problem Code Type: ICD-10; KRISTYN murillo, [employer]. 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 2 08:02:10 Nicotine dependen ce 28748219 Completed 202009/27/2020 Problem Code: F17.200; Problem Code Type: ICD-10; Not Available [facility] 2 21:20:38 Low vision right eye, normal vision left eye 30896709601 9106 Completed 202012/26/2021 [id number] es: 'H54.51' ; KRISTYN murillo, [employer]. 2 08:02:11 Body mass index 25-29 - overweig ht 273628471 Completed 202005/28/2020 Problem Code: Z68.29; Problem Code Type: ICD-10; Not Available [facility] 21:20:42 Ruptured abdomina l aortic aneurysm 35628274 Active 2020 Problem Code: I71.3; Problem Code Type: ICD-10; Not Available [facility] 4 17:03:23 On examinat ion - inspecti on of blood Completed 202009/27/2020 Not Available [facility] 2 21:20:39 Wheezing 12067086 Completed 202012/26/2021 Problem Code: R06.2; Problem Code Type: ICD-10; KRISTYN LOOMISNER lidia [employer]. 2 08:02:11 Viral screenin g Completed 202003/07/2021 Problem Code: Z11.52; Problem Code Type: ICD-10; Not Available [facility] 2 21:20:40 Pre-surg iraida testing Completed 202012/26/2021 Problem Code: Z01.812; Problem Code Type: ICD-10; KRISTYN murillo, [employer]. 2 08:02:10 Body mass index 30+ - obesity 365937354 Completed 202109/26/2021 Problem Code: Z68.31; Problem Code Type: ICD-10; Not Available [facility] 2 21:20:43 Body mass index 30+ - obesity 743558156 Completed 202109/26/2021 Problem Code: Z68.33; Problem Code Type: ICD-10; Not Available [facility] 2 21:20:42 Nicotine dependen ce 56090332 Active 2021 Problem Code: F17.200; Problem Code Type: ICD-10; Not Available [facility] 4 17:03:23 COVID-19 897695794 Active 2023 Christin Herrera NP [address] [place] [address], [phone] , [employer] 4 09:12:45 Headache 15814568 Active 2023 Christin Herrera NP [address] [place] [address], [phone] , [employer] 4 09:32:18 Hyperlip idemia 10630744 Active 2024 Dora murillo, [employer] 5 14:43:04 Fatigue 99823760 Active 2024 Dora murillo, [employer] 5 14:43:04 Hypergly cemia 24268590 Active 2024 Dora murillo, [employer] 5 14:43:04 Viral wart on finger 453705129 Active 2024 Dora murillo, [employer] 5 10:26:48 Disorder of stomach 67257788 Active 2024 Cherry Nieves APRN [address] [place] [address], [phone] , [employer] 5 15:31:11 Abnormal weight loss 757035551 Active 2024 Cherry Nieves APRN [address] [place] [address], [phone] , [employer]. 5 15:31:24 Problem Notes None recorded. Procedures Surgical History Date Name Laterality Status Provider Name and Address Organization Details Recorded Time 2024 ESOPHAGOGASTRODUODENOSCOPY WITH BIOPSY (SURG) completed GELY CONTRERAS [address] 5 10:05:35 2024 Cryosurgery Warts/Skin Tags completed Jasmin Thakkary [address] 5 10:27:53 three dimensional ultrasonography of abdominal aortic endovascular aneurysm repair with contrast completed KRISTYN JOYNER [address] 2 08:05:24 Unlisted procedure shoulder complete d KRISTYN JOYNER [address] 2 08:05:39 Imaging Results None recorded. Procedure Notes None recorded. Medical Equipment None Reported. Allergies Allergen ID Allergen Name Allergen Category Reaction Reaction Severity Criticality Documentation Date Start Date Code Code System Note Provider Name and Address Organization Details Recorded Time 07696 atorvasta tin calcium medicatio n Not available Not available Not available 12/02/2021 32971 RxNorm KRISTYN murillo [employer] 2 08:01:11 Medications Name Sig Start Date [...] Updated DateTime 5 182.88 cm 26.6 kg/m2 74826.1 g 86 /min 89 % 89 % 133/62 mm[Hg] Dora Blancas [place] - [employer]. 08:23:15 Social History Question Answer Notes LastModified by Organizat ion Details LastModified Time Tobacco Smoking Status Current Every Day Smoker KRISTYN murillo [facility] [employer] 12/26/2021 08:03:51 Do You Have An Advance Directive? No Information n ot available 12/26/2021 Are You Blind Or Do You Have Difficulty Seeing? No [email or web address] Information n ot available 12/26/2021 Are You A Caregiver? No [email or web address] Information not available 04/03/2022 In The 14 Days Before Symptom Onset, Have You Had Close Contact With A Laboratory-confirm ed COVID-19 While That Case Was Ill? No [email or web address] Information n ot available 04/03/2022 In The 14 Days Before Symptom Onset, Have You Had Close Contact With A Person Who Is Under Investigation For COVID-19 While That Person Was Ill? No [email or web address] Information not available 04/03/2022 Have You Been To An Area Known To Be High Risk For COVID-19? No [email or web address] Information not available 12/26/2021 Are You Deaf Or Do You Have Serious Difficulty Hearing? No [email or web address] Information not available 12/26/2021 What Type Of Diet Are You Following? REGULAR [email or web address] Information n ot available 12/26/2021 Have There Been Any Changes To Your Family Or Social Situation? No [email or web address] Information no t available 04/03/2022 Do You Have A Medical Power Of Mica Paster? No [email or web address] Information not available 12/26/2021 What Was The Date Of Your Most Recent Tobacco Screening? 12/29/2024 Information not available 12/29/2024 What Is Your Current Pack Years? 30ormorepack years Information not available 12/26/2021 What Is Your Relationship Status? [email or web address] Information not available 12/26/2021 Do You Use Your Seat Belt Or Car Seat Routinely? Yes [email or web address] Information not available 04/03/2022 Are You Passively Exposed To Smoke? Yes [email or web address] Information no t available 04/03/2022 Are There Any Smokers In Your House? Yes [email or web address] Information not available 04/03/2022 How Much Tobacco Do You Smoke? 2 PPD [email or web address] Information not available 12/26/2021 Do You Participate In Social Media? No Information not available 11/17/2023 Do You Use Sunscreen Routinely? No [email or web address] Information not available 04/03/2022 Has Tobacco Cessation Counseling Been Provided? Yes Information not available 10/15/2022 On What Date Was Tobacco Cessation Counseling Provided? 12/29/2024 Information not available 12/29/2024 Have You Recently Traveled Abroad? No [email or web address] Information not available 12/26/2021 Do You Have Difficulty Walking Or Climbing Stairs? No Information not available 12/26/2021 Are You Currently In School? No [email or web address] Information not available 12/26/2021 Do You Have Any Dietary Restrictions? No [email or web address] Information not available 11/17/2023 Sex: Male Functional Status Question Answer Note LastModified by Organizat ion Details LastModified Time Do you use any illicit or recreational drugs? No [email or web address] Information not available 04/03/2022 Do you or have you ever used any other forms of tobacco or nicotine? No [email or web address] Information not available 11/17/2023 What is your level of alcohol consumption? None history of alcoholism [email or web address] Information not available 12/26/2021 Are you currently employed? Yes [email or web address] Information not available 12/26/2021 Do you have transportation difficulties? No [email or web address] Information not available 12/26/2021 Are you able to walk independently without assistance or assistive devices? YESWOREST Information not available 12/26/2021 Do you have difficulty doing errands alone? No [email or web address] Information not available 12/26/2021 Are you able to care for yourself independently? Yes [email or web address] Information not available 12/26/2021 Do you have difficulty dressing, bathing, grooming, or toileting? No [email or web address] Information not available 12/26/2021 Mental Status Question Answer Note LastModified by Organization D etails LastModified Time Do you have difficulty concentrating, remembering or making decisions? No [email or web address] Information no t available 12/26/2021 Family History Relationship Description Onset Age of this Age Resolved Age Notes LastModified by Organization Details LastModified Time Son Family history of drug abuse [email or web address] Not available 11/29 08:03:29 Mother Family history of neurological disorder [email or web address] Not available 12/26 08:03:23 Father Family history of Hypertension [email or web address] Not available 08:03:20 Medical History Condition Response Hospitalizations N Emergency room visit since last appointm ent. N Hypertension Y Immunizations Vaccine Type Date Status Note Provider Name and Address Organization Details Recorded Time COVID-19 vaccine, vector-nr, rS-Ad26, PF, 0.5 mL 021 completed Not Available [facility] 05/04/2023 17:03:24 zoster recombinant 024 cancelled patient objection Theresa Hein APRN [address] [place] [address], [phone], [facility] [employer] 10/01/2023 09:01:08 pneumococcal polysaccharide PPV23 024 cancelled patient objection Theresa Hein APRN [address] [place] [address], [phone], [facility] [employer] 10/01/2023 09:01:08 COVID-19 vaccine, vector-nr, rS-Ad26, PF, 0.5 mL 022 completed Not Available [facility] 05/04/2023 17:03:24 Past Encounters Encounter ID Performer Location Encounter Start Date Encounter Closed Date Diagnosis/Indication Diagnosis SNOMED-CT Code Diagnosis ICD10 Code Diagnosis IMO Codes Diagnosis Note [id number] Theresa Hein [address] [address] 12/29/2024 08:16:46 12/29/2024 14:18:15 Influenza vaccination declined 345095262 Z28.21 [id number] Fatigue 17928538 R53.83 4246630 Mixed hyperlipidemia 267 295128 E78.2 19354 Hyperglycemia 99714080 R 73.9 46522 Vitamin D deficiency 347 62038 E55.9 33335 Cobalamin deficiency 190 253025 E53.8 78410 Iron defic iency anemia 96210046 D50.9 94104155 Nocturia 656736558 R35.1 24808 Unintentio nal weight loss 032417890 R63.4 416879 Benign ess ential hypertension 0058662 I10 Gastroesop hageal reflux disease without esophagitis 152570337 K21.9 Screening for malignant neoplasm of colon 178042873 Z12.11 843011 Screening for malignant neoplasm of lung 755442849 Z12.2 0998138858 Overweight in adulthood with body mass index of 25 or more but less than 30 259522111 Z68.26 174451 Health Concerns Section Related Observation LastModified by Organization Detai ls LastModified Time None Recorded Concern Status LastModified by Organization Details LastModified Time None Recorded Payers Encounter Date Sequence Insurance Name Policy Number Policy Rosario Covered Member ID Rosario Member ID Guarantor Name 12/29/2024 1 [facility] [id number] Keyshawn Albarran [id number] Keyshawn Albarran 12/29/2024 2 [place] Keyshawn Albarran [id number] Keyshawn Albarran Notes Date Note Type Note [...] he is fine . 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 Theresa Hein APRN [address] [facility], [place], [phone], [facility] [employer] 12/29/2024 10:55:33
[2025-01-24] MEDS: IOPAMIDOL-370 (76%);100ML BOTTLE 75 ML IV (08:52)
== END 2025-01-24 23:59 | disposition home or self-care (01) ==
LOC: RAD 08:10
PROVIDERS: PCP Nurse Practitioner; Visit Provider Nurse Practitioner Family
DX: J18.1 Lobar pneumonia, unspecified organism (principal); R91.8 Other nonspecific abnormal finding of lung field; K31.89 Other diseases of stomach and duodenum; I71.40 Abdominal aortic aneurysm, without rupture, unspecified; Z95.828 Presence of other vascular implants and grafts; R93.421 Abnormal radiologic findings on diagnostic imaging of right kidney; R93.3 Abnormal findings on diagnostic imaging of other parts of digestive tract
CPT/HCPCS: 74170; Q9967

== ENCOUNTER 2025-02-01 12:03 | Day surgery (SDC) | payer OTHER, MEDICARE, SELFPAY ==
[2025-01-30 11:07] VITALS: BMI 25.2
--- NOTE | 2025-01-31 16:35 | EXP.HP ---
History of Present Illness *Admission Date: 02/01/25 *History of present illness: Mr. Albarran is a 69-year-old gentleman who is here for diagnostic EGD and colonoscopy. The patient recently had a CAT scan that showed extensive gastric wall thickening. The CAT scan also showed a 5.5 cm area of mucosal thickening in the mid sigmoid colon. He does have a history of GERD for well over 30 years and has been on either omeprazole or Zantac for over 30 years. He will still get some breakthrough heartburn. Over the last 2 to 3 months he has lost 7 to 9 pounds and over the last 2 to 3 years has lost a total of 25 pounds. He also reports having a bowel movement about 5 out of 7 days a week. Once a week he will get some mushy stools or diarrhea. The patient has never had a colonoscopy or EGD. He was recently diagnosed with iron deficiency. He does report some blood in his stool. This has been happening for the past month but has occurred intermittently for years and he attributed this to hemorrhoids. He reports no family history of esophageal, gastric or colon cancer.. The examination is deemed medically necessary for diagnostic EGD and colonoscopy. The patient has been seen, interviewed and examined prior to the procedure by both myself and the anesthesia provider. [facility] Disclaimer: The information contained in this section may have been updated after the patient was seen, as this information can be updated by other users. Medical History High cholesterol Hypertension Abdominal aortic aneurysm (AAA) Surgical History History of abdominal aortic aneurysm repair History of hand surgery H/O right wrist surgery History of shoulder replacement Family History Sister Cancer Father Hypertension Social History (Updated 02/01/25 @ 13:01 by Marko Fitzpatrick CRNA) Smoking Status: Current every day smoker tobacco type: cigarettes packs per day: 2 alcohol intake: never substance use type: denies use current occupational status: employed Travel in the last 8 weeks?: None caffeine: Yes Have you lived/traveled outside US in past 30 days?: No Contact w/someone who lives/traveled outside US past 30 days?: No Exposure to someone with infectious disease in past 14 days?: No Do you have a fever (greater than 100.4 F or 38 C)?: No Have you tested positive for COVID-19?: No Exposed to someone with COVID-19 in past 14 days?: No Do you have a sore throat?: No Do you have a cough?: No Do you have any weakness?: No Are you experiencing any nausea/vomitting?: No Do you have any diarrhea?: No Are you experiencing any unusual bleeding?: No Do you have any muscle aches/pain?: No Do you have any abdominal pain?: No Are you experiencing loss of taste or smell?: No Review of Systems Review of Systems Review of systems (narrative): Negative *Cardiovascular Comments: Negative *Gastrointestinal Comments: Negative *Genitourinary Comments: Negative *Musculoskeletal Comments: Negative *Neurologic Comments: Negative Meds Home Medications and Allergies Home Medications ?Medication ?Instructions ?Recorded ?Confirmed ?Type albuterol sulfate 90 mcg/actuation 90 mcg inhalation NEEDED PRN soa 01/23/25 02/01/25 History aerosol inhaler carvedilol 6.25 mg tablet 6.25 mg PO BID 01/23/25 02/01/25 History clopidogrel 75 mg tablet 75 mg PO DAILY 01/23/25 02/01/25 History ergocalciferol (vitamin D2) 1,250 50,000 unit PO WEEKLY 01/23/25 02/01/25 History mcg (50,000 unit) capsule (Vitamin D2) lisinopril 20 1 tab PO DAILY 01/23/25 02/01/25 History mg-hydrochlorothiazide 12.5 mg tablet omeprazole 40 mg capsule,delayed 40 mg PO DAILY 01/23/25 02/01/25 History release simvastatin 40 mg tablet 40 mg PO HS 01/23/25 02/01/25 History sodium,potassium,mag sulfates 17.5 See Rx Instructions PO .COMPLEX 01/23/25 01/30/25 Rx gram-3.13 gram-1.6 gram oral soln #354 mL (Suprep Bowel Prep Kit) New Prescriptions to Start Prescriptions: Allergies Allergy/AdvReac Type Severity Reaction Status Date / Time No Known Allergies Allergy Verified 02/01/25 12:28 Exam Data for Last 24 hours I & O for Last 24 hours: Intake & Output 01/28/25 01/29/25 01/30/25 01/31/25 22:59 23:59 23:59 23:59 Weight 186 lb *Routine HEENT Exam Head: Present normocephalic Eye: Present EOMI and PERRL ENT: Present mucous membranes moist *Routine Neck Exam Neck: Present supple *Routine Respiratory Exam Respiratory: Present CTA bilaterally *Routine Cardiovascular Exam Cardiovascular: Present RRR *Routine Abdominal Exam Abdominal: Present soft and normoactive bowel sounds; Absent tenderness *Routine Rectal Exam Rectal:: deferred *Routine Genitalia Exam Genitalia:: deferred *Routine Extremities Exam Extremities: Absent cyanosis, clubbing or edema *Routine Skin Exam Skin: Present warm; Absent rash *Routine Neurological Exam Neurological: Present alert and oriented X3 Assessment and Plan *Assessment and plan (1) Abnormal CT scan, stomach: Status: Acute Category: Medical Code(s): R93.3 - Abnormal findings on diagnostic imaging of other parts of digestive tract (2) Abnormal CT scan, colon: Status: Acute Category: Medical Code(s): R93.3 - Abnormal findings on diagnostic imaging of other parts of digestive tract (3) Bright red blood per rectum: Status: Acute Category: Medical Code(s): K62.5 - Hemorrhage of anus and rectum (4) Loss of appetite: Status: Acute Category: Medical Code(s): R63.0 - Anorexia (5) Weight loss: Status: Acute Category: Medical Code(s): R63.4 - Abnormal weight loss (6) Chronic GERD: Status: Acute Category: Medical Code(s): K21.9 - Gastro-esophageal reflux disease without esophagitis Plan A/P: 1. Abnormal CT scan of the stomach and sigmoid colon is the preprocedural diagnosis. The patient has noted some bright red blood per rectum. He also has had loss of appetite and weight loss. He has had chronic GERD. He has never had a EGD or colonoscopy. The patient will be anesthetized/sedated using MAC sedation. The patient has been seen and examined. Cardiac and lung assessment prior to the examination is stable. Proceed with planned diagnostic EGD and colonoscopy.
--- NOTE | 2025-02-01 06:48 | P.PCN_ITS ---
[facility] Procedure Note Date: 02/01/25 Time: 14:06 Procedure Note:: Upper Endoscopy Procedure Report: Esophagogastroduodenoscopy with cold biopsies Endoscopost: Sanjay Conrad II, MD Referring Physician: Dipti Hein PA-C Date of Procedure: February 01, 2025 Equipment: Olympus GIF-1100 standard upper endoscope Sedation: MAC sedation Indications: Mr. Albarran is a 69-year-old gentleman who is here for diagnostic EGD and colonoscopy. The patient recently had a CAT scan that showed extensive gastric wall thickening. The CAT scan also showed a 5.5 cm area of mucosal thickening in the mid sigmoid colon. He does have a history of GERD for well over 30 years and has been on either omeprazole or Zantac for over 30 years. He will still get some breakthrough heartburn. Over the last 2 to 3 months he has lost 7 to 9 pounds and over the last 2 to 3 years has lost a total of 25 pounds. He also reports having a bowel movement about 5 out of 7 days a week. Once a week he will get some mushy stools or diarrhea. The patient has never had a colonoscopy or EGD. He was recently diagnosed with iron deficiency. He does report some blood in his stool. This has been happening for the past month but has occurred intermittently for years and he attributed this to hemorrhoids. He reports no family history of esophageal, gastric or colon cancer.. The examination is deemed medically necessary for diagnostic EGD and colonoscopy. Procedure: Prior to the procedure, a history and physical exam was performed, and patient's medications and allergies were reviewed. The risks, benefits and alternatives of the sedation and procedure were discussed with the patient. All questions were answered and informed consent was obtained. The patient was brought to the procedure room. Patient identification and proposed procedure were verified by the physician and the nurse. The patient was placed in a left lateral decubitus position and the scope was passed under direct vision. Throughout the procedure, the patient's blood pressure, pulse, and oxygen saturations were monitored continuously. The upper GI endoscopy was accomplished without difficulty. The patient tolerated the procedure well. Findings: The scope was passed directly into the upper esophagus and advanced to the third portion of the duodenum. The post bulbar duodenum and duodenal bulb were normal with normal mucosa and conniventes. 2 cold biopsies were taken from the duodenum to rule out celiac disease. The scope was withdrawn through a normal duodenal bulb and pylorus into the stomach. There was some mild chronic gastritis of the body and fundus of the stomach and biopsies were taken along the lesser curvature for H. pylori. Upon retroflexion there was a very small sliding 1 to 2 cm hiatal hernia. During the examination there was blanching of the gastric mucosa suggestive of gastric perfusion defects from mesenteric arterial perfusion. The scope was then withdrawn into the esophagus. There was a single tongue of salmon-colored mucosa that was biopsied to rule out intestinal metaplasia. There was no evidence of reflux esophagitis. The remainder of the esophageal mucosa was normal. Impression: 1. Single tongue of salmon-colored mucosa of distal esophagus?rule out short segment Bill's esophagus 2. Mild chronic gastritis 3. 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 The patient's CT scan had shown endograft spanning 7 abdominal aortic aneurysm that measured 7.7 x 6.0 cm. I do feel that the patient is getting some mesenteric arterial occlusion because of the blanching of the mucosa. This can be a sign of partial blockages of the arteries that perfuse the stomach and there are 3 arteries that provide blood flow and perfuse the stomach (superior mesenteric artery, inferior mesenteric artery and celiac artery). I would consider referral back to vascular surgery and dedicated CT or MR angiography.
--- NOTE | 2025-02-01 06:49 | HMH.PROCNOTE ---
[facility] Procedure Note Date: 02/01/25 Time: 14:45 Procedure Note:: Colonoscopy Procedure Report: Colonoscopy with cold snare polypectomy, submucosal injection and cold biopsies Endoscopist: Sanjay Conrad II, MD Referring physician: Dipti Hein PA-C Date of Procedure: February 01, 2025 Equipment: [employer] [id number] adult colonoscope Sedation: MAC sedation Indication: Mr. Albarran is a 69-year-old gentleman who is here for diagnostic EGD and colonoscopy. The patient recently had a CAT scan that showed extensive gastric wall thickening. The CAT scan also showed a 5.5 cm area of mucosal thickening in the mid sigmoid colon. He does have a history of GERD for well over 30 years and has been on either omeprazole or Zantac for over 30 years. He will still get some breakthrough heartburn. Over the last 2 to 3 months he has lost 7 to 9 pounds and over the last 2 to 3 years has lost a total of 25 pounds. He also reports having a bowel movement about 5 out of 7 days a week. Once a week he will get some mushy stools or diarrhea. The patient has never had a colonoscopy or EGD. He was recently diagnosed with iron deficiency. He does report some blood in his stool. This has been happening for the past month but has occurred intermittently for years and he attributed this to hemorrhoids. He reports no family history of esophageal, gastric or colon cancer.. The examination is deemed medically necessary for diagnostic EGD and colonoscopy. Procedure: Prior to the procedure, a history and physical exam was performed, and patient's medications and allergies were reviewed. The risks, benefits and alternatives of the sedation and procedure were discussed with the patient. All questions were answered and informed consent was obtained. The patient was brought to the procedure room. Patient identification and proposed procedure were verified by the physician and the nurse. The patient was placed in a left lateral decubitus position and the scope was passed under direct vision. Throughout the procedure, the patient's blood pressure, pulse, and oxygen saturations were monitored continuously. The colonoscopy was accomplished without difficulty. The patient tolerated the procedure well. Findings: On digital rectal examination there was normal rectal tone. There were no external hemorrhoids. The colonoscope was introduced through the anal canal to the rectum and advanced to the cecum. The ileocecal valve and appendiceal orifice were identified. The scope was advanced a short distance into the ileum which appeared grossly normal. The scope was then withdrawn into the colon. Most importantly, there was a friable lower sigmoid fungating marginated mass that was 4.5 up to 5 cm. There was central depression and marginated edges with friability and some blood on the mucosa and NBI evidence of dysplasia and probable carcinoma. This was at 16 to 17 cm from the anal verge and could not be palpated with digital exam. This appeared to be on the posterior wall and was hemiferential encompassing 40 to 50% of the luminal diameter but was not obstructive. Multiple cold biopsies were obtained. In addition, there were multiple polyps (ascending x 1 (7 mm) hepatic flexure x 1 (22 to 23 mm and submucosal injection applied with Eleview), transverse x 4 (4, 5, 5 and 8 mm) and rectum x 1 (11 to 12 mm). These smaller and 1 larger polyp were all removed via cold snare polypectomy and the largest with piecemeal removal. There were scattered diverticuli throughout the descending and sigmoid colon. Again there was some mucosal blanching during the case suggestive of mesenteric arterial perfusion defect. Upon retroflexion within the rectum there were 2 internal hemorrhoids. The preparation was excellent throughout with [place] Preparation Score of 9. The cecal time was 12 minutes. Impression: 1. 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 Larger 22 to 23 mm polyp in distal ascending colon near hepatic flexure 3. 6 additional colon polyps 4. Left-sided diverticulosis 5. Grade 2 internal hemorrhoids Plan: I will follow-up the biopsies and refer the patient to medical oncology and then to colorectal surgery. I will discuss the findings with the patient and family.
[2025-02-01 12:25] VITALS: BP 128/89; PULSE 64; RESP 18; TEMP 36.1; O2SAT 93
[2025-02-01] MEDS: LACTATED RINGERS 1000ML 1,000 ML 50 ML IV (12:47)
--- NOTE | 2025-02-01 13:00 | P.PNANES_ITS ---
[facility] Disclaimer: The information contained in this section may have been updated after the patient was seen, as this information can be updated by other users. Medical History High cholesterol Hypertension Abdominal aortic aneurysm (AAA) Surgical History History of abdominal aortic aneurysm repair History of hand surgery H/O right wrist surgery History of shoulder replacement Family History Sister Cancer Father Hypertension Social History (Updated 02/01/25 @ 12:32 by Nichole Snell RN) Smoking Status: Current every day smoker tobacco type: cigarettes packs per day: 2 alcohol intake: never substance use type: denies use current occupational status: employed Travel in the last 8 weeks?: None caffeine: Yes [facility] Anesthesia Checklist Patient Identification Patient Identification: Arm Band and Verbal (Name & ) Structural Data Admitted From: Home Planned Operative Procedure/s: EGD+Colonoscopy Consent for Planned Operative Procedure(s) Verified: Yes Verified Documents: Surgical Consent NPO Status Verified Time NPO: 00:00 Additional verifications Anesthesia Reactions: No Airway Assessment Mallampati Score:: Class II C-Spine Mobility Assessed: Yes TMJ Mobility Assessed: Yes Dentition: Good Dentition Neurological Assessment Level of Consciousness: Awake, Alert and Appropriate Anesthesia Plan Anesthesia Risk discussed: Yes Anesthesia Plan: Verified ASA Class: II Anesthesia Type: MAC
[2025-02-01 14:40] VITALS: BP 107/57; PULSE 70; RESP 18; TEMP 36.1; O2SAT 96
[2025-02-01 14:50] VITALS: BP 113/67; PULSE 83; RESP 18; O2SAT 93
[2025-02-01 15:00] VITALS: BP 125/67; PULSE 72; RESP 18; O2SAT 96
[2025-02-01 15:10] VITALS: BP 128/71; PULSE 86; RESP 18; O2SAT 95
== END 2025-02-01 15:18 | disposition home or self-care (01) ==
PROVIDERS: PCP Nurse Practitioner; Visit Provider Internal Medicine Gastroenterology
PROC: 0DJ08ZZ Inspection of Upper Intestinal Tract, Via Natural or Artificial Opening Endoscopic (ICD-10-PCS; CPT 45378; principal; 2025-02-01 13:30)
DX: K31.89 Other diseases of stomach and duodenum (principal); D12.2 Benign neoplasm of ascending colon; D12.3 Benign neoplasm of transverse colon; K29.70 Gastritis, unspecified, without bleeding; K44.9 Diaphragmatic hernia without obstruction or gangrene; K22.70 Barrett's esophagus without dysplasia; K57.30 Diverticulosis of large intestine without perforation or abscess without bleeding; K64.1 Second degree hemorrhoids; D12.5 Benign neoplasm of sigmoid colon; E61.1 Iron deficiency; K62.5 Hemorrhage of anus and rectum; K21.9 Gastro-esophageal reflux disease without esophagitis; F17.210 Nicotine dependence, cigarettes, uncomplicated; E78.5 Hyperlipidemia, unspecified; I10 Essential (primary) hypertension
CPT/HCPCS: 43239; 45380; 45385; J2003; J2704; J7120

== ENCOUNTER 2025-02-09 11:25 | Outpatient (CLI) | payer OTHER, MEDICARE, SELFPAY ==
--- OUTSIDE RECORDS SUMMARY | 2025-02-09 11:32 | XMS_ITS | Clinical Summary ---
Author Organization [facility] Address [address] [place] [address] Care Team Providers Care Teacher Resource Name Role Phone Theresa Hein APRN Primary Care Provider Allergies Active Allergy Reactions Criticality Noted Date [...] hours as needed Active ergocalciferol 1.25 MG (25469 UT) capsule TAKE ONE CAPSULE BY MOUTH [...] (01/20/2021): Added automatically from request for surgery [id number] Encounters Date Type Department Care Team Description 11/24/2024 Telephone [facility] [address], [address] [address] Mitali Joseph RN 11/24/2024 Telephone [facility] [address], [address] [place] [phone] Mitali Joseph RN from Last 3 [...] Info) Description 06/01/2025 8:30 AM EST Appointment [facility] [address] Floor Wing [address], [address] [place] [address] 06/01/2025 9:00 AM EST Appointment [facility] [address], [address] [place] [address] 06/01/2025 9:30 AM EST Appointment [facility] [address], [address] [place] [address] 06/01/2025 10:40 AM EST Office Visit [facility] [address], [address] [place] [address] Fabricio Walker MD [address] [facility] [address] [place] [address] Health Maintenance Due Date Last Done Comments [facility]-Hepatitis C Screening 1955 [facility]-Medicare Annual Wellness (AWV) 1955 [facility]-Infant/Child/Adol SDOH Screenings 1955 [facility]- SDOH Screenings 1974 [...] (AAA) Screening 2021 [facility]-Depression Screening 04/26/2024 04/26/2023 [id number] Vaccine (3 - season) 2024 04/17/2021, 08/03/2020 [...] this topic Medical Devices Implanted Type Area Ju[employer] Device Identifier Shelf Expiration Date Model / Serial / Lot 28.5mm Tanja Aortic X 12mm Tanja Iliac X 12cm Length, Excluder Trunk-Ipsilatera l Leg Endoprosthesis, C3 Delivery System Implanted:Qty: 1 on 02/27/2021 by Fabricio Walker MD at [facility] Stent 11/03/2023 [id number] / [id number] Stent Graft Iliac [id number] Viabah[employer]x - [id number] - [id number] Implanted:Qty: 1 on 02/27/2021 by [place]ricio [place] [facility][id number] 09/10/2023 [id number] / [id number] / [id number] Stent Graft Iliac [id number] Lviabahnbx - [id number] Implanted:Qty: 1 on 02/27/2021 by Fabricio Walker [place] [id number] 08/29/2023 [id number] / [id number] / [id number] Stent Graft Iliac [id number] [employer]x - [id number] Implanted:Qty: 1 on 02/27/2021 by Fabricio Walker [place] [id number][id number] 11/26/2023 [id number] / [id number] / [id number] Soundscriber Mechanic Bif 32mm Aor Endoprosth Excldr - [id number] Implanted:Qty: 1 on 02/27/2021 by Fabricio Walker [place] [id number] 07/09/2023 [id number] / [id number] / [id number] Stent Graft Iliac [id number] [employer]x - [id number] Implanted:Qty: 1 on 02/27/2021 by Fabricio Walker MD [place] [facility]-[id number] 10/02/2023 [id number] / [id number] / [id number] Soundscriber Mechanic Bif 32mm Aor Endoprosth Excldr - [id number] Implanted:Qty: 1 on 02/27/2021 by Fabricio Walker [place] [facility][id number] 09/15/2023 [id number] / [id number] / [id number] Stent Exp Bili Ld 7 X 57 - [id number] Implanted:Qty: 1 on 02/27/2021 by Fabricio Walker MD at [facility] Ionh-[id number]-[id number] 02/08/2023 [id number] / / [id number] Procedures Procedure Name Priority Date/Time Associated Diagnosis [...] on May 15 2020 10:16P Transcribed by: [facility] on May 15 2020 10:16P Dictated by: FELICITA ARORA M.D. on May 15 2020 10:02P Tyree Corrales MD IM CT PROCEDURES Final R esult from Last 3 Months or Most Recently Relevant to Health [place] [phone] Care Teams Teacher Resource Relationship Specialty Start Date End Date Theresa Hein APRN [address] [id number] PCP - General 02/25/21
[2025-02-09 11:59] LABS: Hematocrit 40.9 % (42.0-52.0); Hemoglobin 12.8 g/dL (14.1-18.0); Immature Granulocytes % 0.3 %; Mean Corpuscular HGB Conc 31.3 g/dL (31.8-35.4); Mean Corpuscular Hemoglobin 26.8 pg (27.0-31.2); Mean Corpuscular Volume 85.7 fl (80-94); Nucleated Red Blood Cells % 0 %; Platelet Count 284 K/mm3 (142-424); Red Blood Count 4.77 M/mm3 (4.60-6.20); Red Cell Distribution Width-SD 51.1 fL; White Blood Count 12.7 K/mm3 (4.8-10.8)
[2025-02-09 12:23] LABS: Alanine Aminotransferase 13 U/L (12-78); Albumin Level 4.2 g/dl (3.5-5.0); Albumin/Globulin Ratio 1.3 (1.1-1.8); Alkaline Phosphatase 80 U/L (38-126); Anion Gap 10.0 mEq/L (5-15); Aspartate Amino Transferase 23 U/L (17-59); Bilirubin,Total 0.8 mg/dl (0.2-1.3); Blood Urea Nitrogen 16 mg/dl (9-20); Calcium 9.7 mg/dl (8.4-10.2); Carbon Dioxide 33 mmol/L (22.0-30.0); Chloride 95 mmol/L (98-107); Creatinine,Serum 1.00 mg/dl (0.66-1.25); Estimated Glomerular Filt Rate 74 ml/min (>60); GFR (African American) 90 ML/MIN (>60); Globulin 3.2 g/dL (1.3-3.2); Glucose 87 mg/dl (74-100); Potassium 4.0 mmoL/L (3.5-5.1); Sodium 134 mmol/L (136-145); Total Protein,Serum 7.4 g/dl (6.3-8.2)
[2025-02-09 14:28] LABS: Iron 61 ug/dL (49-181)
[2025-02-09 14:38] LABS: Total Iron Binding Capacity 392 ug/dL (261-462)
[2025-02-09 15:07] LABS: Ferritin 21.2 ng/ml (17.9-464)
[2025-02-10 09:48] LABS: CEA 8.5 ng/mL (0.0-4.7)
== END 2025-02-09 23:59 | disposition home or self-care (01) ==
PROVIDERS: PCP Nurse Practitioner; Visit Provider Internal Medicine Medical Oncology
DX: C18.7 Malignant neoplasm of sigmoid colon (principal); R93.3 Abnormal findings on diagnostic imaging of other parts of digestive tract; R63.0 Anorexia
CPT/HCPCS: 36415; 80053; 82378; 82728; 83540; 83550; 85025

== ENCOUNTER 2025-03-12 17:55 | Emergency (ER) | payer OTHER, MEDICARE, SELFPAY ==
[2025-03-12] VITALS (20 sets, daily range): BP systolic 111–144; BP diastolic 60–105; PULSE 82–109; RESP 12–20; TEMP 36.8; O2SAT 68–97; BMI 22.8
--- NOTE | 2025-03-12 18:08 | ECG_ITS ---
APPROVED REPORT Exam: Resting ECG HR:106 bpm ECG Measurements Heart Rate 106 AXES SD 140 P 64 QRSd 100 QRS 73 QT 322 T 12 QTc 384 Conclusion Sinus tachycardia without acute ST or T wave changes concerning for ischemia Electronically signed by : Opal Colmenares, 03/13/2025 23:47:42
--- NOTE | 2025-03-12 18:12 | XR_ITS ---
PROCEDURE INFORMATION: Exam: XR Chest Exam date and time: 03/12/2025 7:20 PM Age: 69 years old Clinical indication: Shortness of breath; Additional info: Short of breath TECHNIQUE: Imaging protocol: Radiologic exam of the chest. Views: 1 view. COMPARISON: CT LUNG SCREENING 01/09/2025 7:01 AM FINDINGS: Lungs: Unremarkable. No consolidation. Pleural spaces: Unremarkable. No pleural effusion. No pneumothorax. Heart/Mediastinum: Unremarkable. No cardiomegaly. Bones/joints: Unremarkable. IMPRESSION: No acute findings.
--- NOTE | 2025-03-12 18:16 | CT_ITS ---
PROCEDURE INFORMATION: Exam: CT Abdomen And Pelvis With Contrast Exam date and time: 03/12/2025 7:11 PM Age: 69 years old Clinical indication: Other: Weight loss; Additional info: Wt loss TECHNIQUE: Imaging protocol: Computed tomography of the abdomen and pelvis with contrast. Radiation optimization: All CT scans at this facility use at least one of these dose optimization techniques: automated exposure control; mA and/or kV adjustment per patient size (includes targeted exams where dose is matched to clinical indication); or iterative reconstruction. Contrast material: ISOVUE; Contrast volume: 75 ml; Contrast route: IV; COMPARISON: CT ABDOMEN WO/W CON 01/24/2025 8:26 AM FINDINGS: Tubes, catheters and devices: None noted. Lungs: Lung bases appear clear. Heart: No significant coronary calcifications. No cardiomegaly. No significant pericardial effusion. Liver: Normal. No mass. Gallbladder and biliary ducts: Normal. No calcified stones. No ductal dilation. Pancreas: Normal. No ductal dilation. Spleen: Normal. No splenomegaly. Adrenal glands: Normal. No mass. Kidneys and ureters: Normal. No hydronephrosis. Stomach and bowel: Sigmoid mass resection. No obstruction. No mucosal thickening. Appendix: No evidence of appendicitis. Intraperitoneal space: Unremarkable. No free air. No significant fluid collection. Retroperitoneal space: 9 x 6.5 cm postsurgical abscess in the pelvis. Vasculature: Stent in the SMA origin. Abdominal aortic endoprosthesis. Lymph nodes: Unremarkable. No enlarged lymph nodes. Urinary bladder: Unremarkable as visualized. Reproductive: Unremarkable as visualized. Bones/joints: Unremarkable. No acute fracture. Soft tissues: Unremarkable. IMPRESSION: 1. Sigmoid mass resection. 2. 9 x 6.5 cm postsurgical abscess in the pelvis. 3. Stent in the SMA origin. Abdominal aortic endoprosthesis.
--- NOTE | 2025-03-12 18:17 | HMH.EDGENADL ---
Discharge Plan Disposition Chief Complaint: Weakness Prescriptions Prescriptions: No Action carvedilol 6.25 mg tablet 6.25 mg PO BID Patient Comments: TAKE 1 TABLET BY MOUTH TWICE DAILY with food lisinopril-hydrochlorothiazide 20-12.5 mg tablet 1 tab PO DAILY Patient Comments: TAKE 1 TABLET BY MOUTH EVERY DAY clopidogrel 75 mg tablet 75 mg PO DAILY Patient Comments: TAKE 1 TABLET BY MOUTH ONCE daily omeprazole 40 mg capsule,delayed release(DR/EC) 40 mg PO DAILY Patient Comments: TAKE 1 CAPSULE BY MOUTH ONCE DAILY BEFORE A MEAL simvastatin 40 mg tablet 40 mg PO HS Patient Comments: TAKE 1 TABLET BY MOUTH DAILY in THE evening ergocalciferol (vitamin D2) [Vitamin D2] 1,250 mcg (50,000 unit) capsule 50,000 unit PO WEEKLY Patient Comments: TAKE 1 CAPSULE BY MOUTH every WEEK FOR 90 DAYS albuterol sulfate 90 mcg/actuation HFA aerosol inhaler 90 mcg inhalation NEEDED PRN (Reason: soa) Patient Comments: inhale ONE TO TWO puffs by MOUTH every FOUR hours as needed diphenoxylate-atropine [Lomotil] 2.5-0.025 mg tablet 1 tab PO QID PRN (Reason: diarrhea) Qty: 30 0RF Referrals Follow up/Referrals: Theresa Hein APRN [Primary Care Provider, Medical] - See instructions Stand Alone Forms Stand Alone Forms: Transfer Record - ED Print Language Print Language: Polish Discharge ED Provider: Opal Colmenares General Adult HPI <Maxine Villa (ED), [employer] - Last Filed: 03/12/25 19:02> General Chief complaint: Weakness Stated complaint: surgery 02/21/25 now with loss weight,diarrhea Time Seen by Provider: 03/12/25 18:09 History of Present Illness HPI narrative: 69-year-old male presents to the ED today for complaint of weakness over the last week, weight loss. He has been vomiting and having diarrhea as well. He had part of his colon removed and put back together on 02/21/2025. At first he did okay then he started to lose his appetite and be unable to eat and drink without having nausea and vomiting and diarrhea. No recent fevers or chills. No chest pain or shortness of breath. Related Data Home Medications ?Medication ?Instructions ?Recorded ?Confirmed albuterol sulfate 90 mcg/actuation 90 mcg inhalation NEEDED PRN soa 10/28/25 11/14/25 aerosol inhaler carvedilol 6.25 mg tablet 6.25 mg PO BID 01/23/25 02/09/25 clopidogrel 75 mg tablet 75 mg PO DAILY 01/23/25 02/09/25 ergocalciferol (vitamin D2) 1,250 50,000 unit PO WEEKLY 01/23/25 02/09/25 mcg (50,000 unit) capsule (Vitamin D2) lisinopril 20 1 tab PO DAILY 01/23/25 02/09/25 mg-hydrochlorothiazide 12.5 mg tablet omeprazole 40 mg capsule,delayed 40 mg PO DAILY 01/23/25 02/09/25 release simvastatin 40 mg tablet 40 mg PO HS 01/23/25 02/09/25 Previous Rx's ?Medication ?Instructions ?Recorded diphenoxylate-atropine 2.5 1 tab PO QID PRN diarrhea #30 tabs 03/08/25 mg-0.025 mg tablet (Lomotil) Allergies Allergy/AdvReac Type Severity Reaction Status Date / Time No Known Allergies Allergy Verified 02/09/25 10:38 [facility] <Maxine Villa (ED), [employer] - Last Filed: 03/12/25 19:02> [facility] Disclaimer: The information contained in this section may have been updated after the patient was seen, as this information can be updated by other users. Medical History High cholesterol Hypertension Abdominal aortic aneurysm (AAA) Surgical History History of abdominal aortic aneurysm repair History of hand surgery H/O right wrist surgery History of shoulder replacement Family History Sister Cancer Father Hypertension Social History Smoking Status: Never smoker alcohol intake: never substance use type: denies use current occupational status: employed Travel in the last 8 weeks?: None caffeine: Yes Have you lived/traveled outside US in past 30 days?: No Contact w/someone who lives/traveled outside US past 30 days?: No Exposure to someone with infectious disease in past 14 days?: No Do you have a fever (greater than 100.4 F or 38 C)?: No Have you tested positive for COVID-19?: No Exposed to someone with COVID-19 in past 14 days?: No Do you have a sore throat?: No Do you have a cough?: No Do you have any weakness?: No Do you have any diarrhea?: No Are you experiencing any unusual bleeding?: No Do you have any muscle aches/pain?: No Do you have any abdominal pain?: No Are you experiencing loss of taste or smell?: No <Maxine Villa (ED), [employer] - Last Filed: 03/12/25 19:02> ROS Obtained: Yes Systems reviewed as appropriate & no additional complaints except as documented Constitutional Constitutional: Reports as per HPI Physical Exam <Maxineingrid Villa (ED), [employer] - Last Filed: 03/12/25 19:02> General General appearance: alert and in no apparent distress Head Head exam: normocephalic Eye Eye exam: Present PERRL and EOMI ENT ENT exam: Present normal oropharynx and mucous membranes moist Neck Neck exam: Present full ROM and trachea midline Respiratory Respiratory exam: Present normal lung sounds bilaterally Cardiovascular Cardiovascular exam: Present regular rate, normal rhythm, normal heart sounds, +S1 and +S2 Abdominal Exam Abdominal exam: Present soft and normal bowel sounds Extremities Exam Extremities exam: Present full ROM and normal capillary refill Neurological Exam Neurological exam: Present alert and oriented X3 Skin Skin exam: Present warm and dry Medical Decision Making <Maxine Villa (ED), [employer] - Last Filed: 03/12/25 19:02> Medical Records Screening: Per USPSTF and CDC recommendations, given the prevalence of disease in our region, it is our hospital?s policy to screen for HIV and viral Hepatitis for all patients aged 18 and over and those with ongoing risk factors. Ben Inquiry Pt receiving controlled substance: No Ben was queried for this patient: No Vital Signs: 03/12/25 18:01 03/12/25 18:14 03/12/25 18:30 Temperature 98.3 F Temperature Source Oral Pulse Rate 109 H 90 Pulse Rate [Right] 106 H Respiratory Rate 18 16 Blood Pressure 140/80 111/64 Blood Pressure [Right Arm] 140/80 Blood Pressure Mean Blood Pressure Mean [Right Arm] 100 Blood Pressure Source [Right Arm] Automatic Cuff Blood Pressure Position [Right Arm] Sitting 02 Sat by Pulse Oximetry 93 L 96 93 L Oxygen Delivery Method Room Air 03/12/25 18:45 03/12/25 19:00 03/12/25 19:23 Temperature Temperature Source Pulse Rate 86 83 Pulse Rate [Right] Respiratory Rate 17 15 Blood Pressure 124/105 H Blood Pressure [Right Arm] Blood Pressure Mean 110 Blood Pressure Mean [Right Arm] Blood Pressure Source [Right Arm] Blood Pressure Position [Right Arm] 02 Sat by Pulse Oximetry 68 L 96 Oxygen Delivery Method 03/12/25 19:30 03/12/25 19:45 03/12/25 20:00 Temperature Temperature Source Pulse Rate 92 H Pulse Rate [Right] Respiratory Rate 18 Blood Pressure 120/66 136/67 Blood Pressure [Right Arm] Blood Pressure Mean 84 94 Blood Pressure Mean [Right Arm] Blood Pressure Source [Right Arm] Blood Pressure Position [Right Arm] 02 Sat by Pulse Oximetry 96 Oxygen Delivery Method 03/12/25 20:15 Temperature Temperature Source Pulse Rate 99 H Pulse Rate [Right] Respiratory Rate 12 Blood Pressure Blood Pressure [Right Arm] Blood Pressure Mean Blood Pressure Mean [Right Arm] Blood Pressure Source [Right Arm] Blood Pressure Position [Right Arm] 02 Sat by Pulse Oximetry 97 Oxygen Delivery Method Lab Data Lab Results 03/12/25 18:09: WBC 18.6 H, RBC 4.18 L, Hgb 11.4 L, Hct 33.9 L, MCV 81.1, MCH 27.3, MCHC 33.6, RDW 15.8, Plt Count 404, MPV 11.2 H, Neut % (Auto) 82.4 H, Lymph % (Auto) 7.9 L, Camp % (Auto) 7.8, Eos % (Auto) 0.3, Baso % (Auto) 0.3, Neut # (Auto) 15.3 H, Lymph # (Auto) 1.5, Camp # (Auto) 1.5 H, Eos # (Auto) 0.1, Baso # (Auto) 0.1, ESR 79 H, PT 14.0 H, INR 1.28 H, APTT 33.5 H, Sodium 131 L, Potassium 3.5, Chloride 96 L, Carbon Dioxide 23, Anion Gap 15.5 H, BUN 36 H, Creatinine 1.40 H, Estimated Creat Clear 54, Estimated GFR 50 L, Est GFR ( Amer) 61, Glucose 112 H, Lactate 1.0, Calcium 9.4, Phosphorus 2.4 L, Magnesium 0.8 L, Total Bilirubin 1.1, AST 33, ALT 23, Alkaline Phosphatase 102, Troponin I < 0.01, C-Reactive Protein 223.8 H, Total Protein 8.4 H, Albumin 4.1, Globulin 4.3 H, Albumin/Globulin Ratio 1.0 L, Lipase 31 03/12/25 20:15: Urine Color Yellow, Urine Appearance Clear, Urine pH 6.0, Ur Specific [place] 1.010, Urine Protein Trace, Urine Glucose (UA) Negative, Urine Ketones Negative, Urine Blood Negative, Urine Nitrate Negative, Urine Bilirubin Negative, Urine Urobilinogen 0.2, Ur Leukocyte Esterase Negative, Urine RBC None, Urine WBC Occasional, Ur Squamous Epith Cells None, Urine Bacteria None 03/12/25 18:09 03/12/25 18:09 Orders (Tests/Meds): ED MEDICATIONS Generic Name Dose Route Start Last Admin Trade Name Freq PRN Reason Stop Dose Admin Piperacillin Sod/Tazobactam 100 mls @ 200 mls/hr 03/12/25 20:15 03/12/25 20:38 Sod 4.5 gm/ Sodium Chloride IV 03/22/25 20:14 200 mls/hr Q8H ROWENA Administration Sodium Chloride 10 ml 03/12/25 19:15 03/12/25 19:16 Sodium Chloride 0.9% 10ml Syr (Rad Only) IV 04/11/25 19:14 10 ml NEEDED PRN Administration Maintain IV Site Discontinued Medications Generic Name Dose Route Start Last Admin Trade Name Freq PRN Reason Stop Dose Admin Sodium Chloride 1,000 mls @ 999 mls/hr 03/12/25 18:11 03/12/25 20:14 Sod Chlor 0.9% 1000ml Bag IV 03/12/25 19:11 Infused .Q1H1M ONE Infusion Magnesium Sulfate 2 gm in 50 mls @ 50 mls/hr 03/12/25 18:40 03/12/25 20:14 Magnesium Sulfate 2gm/50ml Premix IV 03/12/25 19:39 Infused ONCE ONE Infusion Magnesium Sulfate 2 gm in 50 mls @ 50 mls/hr 03/12/25 18:42 03/12/25 20:39 Magnesium Sulfate 2gm/50ml Premix IV 03/12/25 19:41 0 mls/hr ONCE ONE Infusion Sodium Chloride 2,290 mls @ 1,145 mls/hr 03/12/25 18:55 03/12/25 20:39 Sod Chlor 0.9% 1000ml Bag 30 ml/kg infuse over 2 hr (2290 ml) 03/12/25 20:54 0 mls/hr IV Infusion .Q2H ONE Protocol Iopamidol 75 ml 03/12/25 19:15 03/12/25 19:16 Iopamidol-370 (76%);100ml Bottle IV 03/12/25 19:16 75 ml ONCE ONE Administration ORDERS Category Date Time Status CT abdomen pelvis w con Stat Cat Scan 03/12/25 18:16 Completed Chest XR -- portable [XR chest portable] Stat Exams 03/12/25 18:12 Completed CBC [Complete Blood Count Auto Diff] Stat Lab 03/12/25 18:09 Completed CRP [C-Reactive Protein] Stat Lab 03/12/25 18:09 Completed Comprehensive Metabolic Panel Stat Lab 03/12/25 18:09 Completed Erythrocyte Sedimentation Rate Stat Lab 03/12/25 18:09 Completed Lactic Acid Stat Lab 03/12/25 18:09 Completed Lipase Stat Lab 03/12/25 18:09 Completed Magnesium Stat Lab 03/12/25 18:09 Completed PT INR [Prothrombin Time INR] Stat Lab 03/12/25 18:09 Completed PTT [Activated Partial Thrombo Time] Stat Lab 03/12/25 18:09 Completed Phosphorous Stat Lab 03/12/25 18:09 Completed Rapid PCR Covid and Flu A/B Stat Lab 03/12/25 18:28 Received Trop I [Troponin I] Stat Lab 03/12/25 18:09 Completed Troponin I Q3H Lab 03/12/25 21:15 Ordered Troponin I Q3H Lab 03/13/25 00:15 Ordered Urinalysis and Microscopic Stat Lab 03/12/25 20:15 Completed Blood Culture Stat Micro 03/12/25 18:22 Received Medical Decision Narrative: patient is a 69-year-old male presenting to the emergency department for evaluation of weakness, weight loss, vomiting and diarrhea. Patient is hemodynamically stable and nontoxic-appearing upon arrival, afebrile. Differential diagnosis includes weight loss from the surgery, viral illness, surgical problem, among others. Workup will be conducted with hematologic labs, specific imaging. Initial inventions include crystalloid bolus, analgesics, antibiotics. Initial workup reviewed by me hematologic labs are remarkable for Elevated white count at 18.6, hemoglobin 11.4, hematocrit 33.9 INR was 1.28 BUN was 36 creatinine was 1.4, mag was 0.8 so he is currently getting magnesium IV. Troponin was less than 0.01. Patient stable at this time. I will give report to Dr. Colmenares <Opal Colmenares, DO - Last Filed: 03/12/25 20:56> Medical Records Medical records reviewed: Yes I reviewed the patient's medical records. Vital Signs: 03/12/25 18:01 03/12/25 18:14 03/12/25 18:30 Temperature 98.3 F Temperature Source Oral Pulse Rate 109 H 90 Pulse Rate [Right] 106 H Respiratory Rate 18 16 Blood Pressure 140/80 111/64 Blood Pressure [Right Arm] 140/80 Blood Pressure Mean Blood Pressure Mean [Right Arm] 100 Blood Pressure Source [Right Arm] Automatic Cuff Blood Pressure Position [Right Arm] Sitting 02 Sat by Pulse Oximetry 93 L 96 93 L Oxygen Delivery Method Room Air 03/12/25 18:45 03/12/25 19:00 03/12/25 19:23 Temperature Temperature Source Pulse Rate 86 83 Pulse Rate [Right] Respiratory Rate 17 15 Blood Pressure 124/105 H Blood Pressure [Right Arm] Blood Pressure Mean 110 Blood Pressure Mean [Right Arm] Blood Pressure Source [Right Arm] Blood Pressure Position [Right Arm] 02 Sat by Pulse Oximetry 68 L 96 Oxygen Delivery Method 03/12/25 19:30 03/12/25 19:45 03/12/25 20:00 Temperature Temperature Source Pulse Rate 92 H Pulse Rate [Right] Respiratory Rate 18 Blood Pressure 120/66 136/67 Blood Pressure [Right Arm] Blood Pressure Mean 84 94 Blood Pressure Mean [Right Arm] Blood Pressure Source [Right Arm] Blood Pressure Position [Right Arm] 02 Sat by Pulse Oximetry 96 Oxygen Delivery Method 03/12/25 20:15 Temperature Temperature Source Pulse Rate 99 H Pulse Rate [Right] Respiratory Rate 12 Blood Pressure Blood Pressure [Right Arm] Blood Pressure Mean Blood Pressure Mean [Right Arm] Blood Pressure Source [Right Arm] Blood Pressure Position [Right Arm] 02 Sat by Pulse Oximetry 97 Oxygen Delivery Method Lab Data Lab results reviewed: Yes I reviewed the patient's lab results. Lab Results 03/12/25 18:09: WBC 18.6 H, RBC 4.18 L, Hgb 11.4 L, Hct 33.9 L, MCV 81.1, MCH 27.3, MCHC 33.6, RDW 15.8, Plt Count 404, MPV 11.2 H, Neut % (Auto) 82.4 H, Lymph % (Auto) 7.9 L, Camp % (Auto) 7.8, Eos % (Auto) 0.3, Baso % (Auto) 0.3, Neut # (Auto) 15.3 H, Lymph # (Auto) 1.5, Camp # (Auto) 1.5 H, Eos # (Auto) 0.1, Baso # (Auto) 0.1, ESR 79 H, PT 14.0 H, INR 1.28 H, APTT 33.5 H, Sodium 131 L, Potassium 3.5, Chloride 96 L, Carbon Dioxide 23, Anion Gap 15.5 H, BUN 36 H, Creatinine 1.40 H, Estimated Creat Clear 54, Estimated GFR 50 L, Est GFR ( Amer) 61, Glucose 112 H, Lactate 1.0, Calcium 9.4, Phosphorus 2.4 L, Magnesium 0.8 L, Total Bilirubin 1.1, AST 33, ALT 23, Alkaline Phosphatase 102, Troponin I < 0.01, C-Reactive Protein 223.8 H, Total Protein 8.4 H, Albumin 4.1, Globulin 4.3 H, Albumin/Globulin Ratio 1.0 L, Lipase 31 03/12/25 20:15: Urine Color Yellow, Urine Appearance Clear, Urine pH 6.0, Ur Specific [place] 1.010, Urine Protein Trace, Urine Glucose (UA) Negative, Urine Ketones Negative, Urine Blood Negative, Urine Nitrate Negative, Urine Bilirubin Negative, Urine Urobilinogen 0.2, Ur Leukocyte Esterase Negative, Urine RBC None, Urine WBC Occasional, Ur Squamous Epith Cells None, Urine Bacteria None Orders (Tests/Meds): ED MEDICATIONS Generic Name Dose Route Start Last Admin Trade Name Freq PRN Reason Stop Dose Admin Piperacillin Sod/Tazobactam 100 mls @ 200 mls/hr 03/12/25 20:15 03/12/25 20:38 Sod 4.5 gm/ Sodium Chloride IV 03/22/25 20:14 200 mls/hr Q8H ROWENA Administration Sodium Chloride 10 ml 03/12/25 19:15 03/12/25 19:16 Sodium Chloride 0.9% 10ml Syr (Rad Only) IV 04/11/25 19:14 10 ml NEEDED PRN Administration Maintain IV Site Discontinued Medications Generic Name Dose Route Start Last Admin Trade Name Freq PRN Reason Stop Dose Admin Sodium Chloride 1,000 mls @ 999 mls/hr 03/12/25 18:11 03/12/25 20:14 Sod Chlor 0.9% 1000ml Bag IV 03/12/25 19:11 Infused .Q1H1M ONE Infusion Magnesium Sulfate 2 gm in 50 mls @ 50 mls/hr 03/12/25 18:40 03/12/25 20:14 Magnesium Sulfate 2gm/50ml Premix IV 03/12/25 19:39 Infused ONCE ONE Infusion Magnesium Sulfate 2 gm in 50 mls @ 50 mls/hr 03/12/25 18:42 03/12/25 20:39 Magnesium Sulfate 2gm/50ml Premix IV 03/12/25 19:41 0 mls/hr ONCE ONE Infusion Sodium Chloride 2,290 mls @ 1,145 mls/hr 03/12/25 18:55 03/12/25 20:39 Sod Chlor 0.9% 1000ml Bag 30 ml/kg infuse over 2 hr (2290 ml) 03/12/25 20:54 0 mls/hr IV Infusion .Q2H ONE Protocol Iopamidol 75 ml 03/12/25 19:15 03/12/25 19:16 Iopamidol-370 (76%);100ml Bottle IV 03/12/25 19:16 75 ml ONCE ONE Administration ORDERS Category Date Time Status CT abdomen pelvis w con Stat Cat Scan 03/12/25 18:16 Completed Chest XR -- portable [XR chest portable] Stat Exams 03/12/25 18:12 Completed CBC [Complete Blood Count Auto Diff] Stat Lab 03/12/25 18:09 Completed CRP [C-Reactive Protein] Stat Lab 03/12/25 18:09 Completed Comprehensive Metabolic Panel Stat Lab 03/12/25 18:09 Completed Erythrocyte Sedimentation Rate Stat Lab 03/12/25 18:09 Completed Lactic Acid Stat Lab 03/12/25 18:09 Completed Lipase Stat Lab 03/12/25 18:09 Completed Magnesium Stat Lab 03/12/25 18:09 Completed PT INR [Prothrombin Time INR] Stat Lab 03/12/25 18:09 Completed PTT [Activated Partial Thrombo Time] Stat Lab 03/12/25 18:09 Completed Phosphorous Stat Lab 03/12/25 18:09 Completed Rapid PCR Covid and Flu A/B Stat Lab 03/12/25 18:28 Received Trop I [Troponin I] Stat Lab 03/12/25 18:09 Completed Troponin I Q3H Lab 03/12/25 21:15 Ordered Troponin I Q3H Lab 03/13/25 00:15 Ordered Urinalysis and Microscopic Stat Lab 03/12/25 20:15 Completed Blood Culture Stat Micro 03/12/25 18:22 Received Medical Decision Narrative: patient is a 69-year-old male presenting to the emergency department for evaluation of weakness, weight loss, vomiting and diarrhea. Patient is hemodynamically stable and nontoxic-appearing upon arrival, afebrile. Differential diagnosis includes weight loss from the surgery, viral illness, surgical problem, among others. Workup will be conducted with hematologic labs, specific imaging. Initial inventions include crystalloid bolus, analgesics, antibiotics. Initial workup reviewed by mn hematologic labs are remarkable for Elevated white count at 18.6, hemoglobin 11.4, hematocrit 33.9 INR was 1.28 BUN was 36 creatinine was 1.4, mag was 0.8 so he is currently getting magnesium IV. Troponin was less than 0.01. Patient stable at this time. I will give report to Dr. Darrian Colmenares, DO I assumed care of the patient at 1900. Patient's labs were reviewed and interpreted by myself: CBC showed a leukocytosis of 18. Hemoglobin was stable. INR was mildly elevated at 1.28. CMP was notable for mildly elevated creatinine at 1.4. Magnesium was 0.8. CRP elevated at 223. Patient CT scan of the abdomen was reviewed and interpreted by myself and per radiology showed postsurgical intra-abdominal abscess. Was started on IV Zosyn. Blood cultures had already been obtained. I contacted [facility] for consult with surgical oncology. After discussion with Dr. Angeles with they asked that patient be transferred to for further work-up and evaluation. Patient will be transferred in stable condition to [facility]. Critical Care <Maxine Villa (ED), [employer] - Last Filed: 03/12/25 19:02> Critical Care Time Critical Care Time: No
[2025-03-12 18:23] LABS: Hematocrit 33.9 % (42.0-52.0); Hemoglobin 11.4 g/dL (14.1-18.0); Immature Granulocytes % 1.3 %; Mean Corpuscular HGB Conc 33.6 g/dL (31.8-35.4); Mean Corpuscular Hemoglobin 27.3 pg (27.0-31.2); Mean Corpuscular Volume 81.1 fl (80-94); Nucleated Red Blood Cells % 0 %; Platelet Count 404 K/mm3 (142-424); Red Blood Count 4.18 M/mm3 (4.60-6.20); Red Cell Distribution Width-SD 46.5 fL; White Blood Count 18.6 K/mm3 (4.8-10.8)
[2025-03-12] MEDS: 0.9 % SODIUM CHLORIDE 1000ML 1,000 ML 999 ML IV (18:23)
[2025-03-12 18:38] LABS: Alanine Aminotransferase 23 U/L (12-78); Albumin Level 4.1 g/dl (3.5-5.0); Albumin/Globulin Ratio 1.0 (1.1-1.8); Alkaline Phosphatase 102 U/L (38-126); Anion Gap 15.5 mEq/L (5-15); Aspartate Amino Transferase 33 U/L (17-59); Bilirubin,Total 1.1 mg/dl (0.2-1.3); Blood Urea Nitrogen 36 mg/dl (9-20); Calcium 9.4 mg/dl (8.4-10.2); Carbon Dioxide 23 mmol/L (22.0-30.0); Chloride 96 mmol/L (98-107); Creatinine Clearance Estimated 54 mL/min (50-200); Creatinine,Serum 1.40 mg/dl (0.66-1.25); Estimated Glomerular Filt Rate 50 ml/min (>60); GFR (African American) 61 ML/MIN (>60); Globulin 4.3 g/dL (1.3-3.2); Glucose 112 mg/dl (74-100); Lipase 31 U/L (23-300); Potassium 3.5 mmoL/L (3.5-5.1); Sodium 131 mmol/L (136-145); Total Protein,Serum 8.4 g/dl (6.3-8.2)
[2025-03-12 18:40] LABS: Magnesium 0.8 mg/dl (1.6-2.3)
--- NOTE | 2025-03-12 18:40 | PC.NURSE ---
CRITICAL MAG 0.8, PT NAME AND R/V. ROSANNE NOTIFIED
[2025-03-12 18:43] LABS: C-Reactive Protein 223.8 mg/L (0-4)
[2025-03-12 18:49] LABS: Activated Partial Thrombo Time 33.5 seconds (22.8-30.6); INR 1.28 (0.9-1.1); Prothrombin Time 14.0 seconds (10.1-12.5); Troponin I < 0.01 ng/ml (0.00-0.034)
[2025-03-12] MEDS: MAGNESIUM SULFATE IN WATER 2 GM/50 ML PIGGYBACK IV ×2 (18:55→19:43)
--- NOTE | 2025-03-12 19:14 | PC.NURSE ---
Report received from Stacy MCKOY Pt in CT scan at this time Pt placed on 2 lpm nasal O2 for Sai2 persistant 90%
[2025-03-12] MEDS: SODIUM CHLORIDE 0.9% 10ML SYR (RAD ONLY) 10 ML IV (19:16)
[2025-03-12] MEDS: IOPAMIDOL-370 (76%);100ML BOTTLE 75 ML IV (19:16)
[2025-03-12] MEDS: SODIUM CHLORIDE 1145 ML IV (19:43)
[2025-03-12 20:25] LABS: Microscopic, Urine URINE MICROSCOPIC (MICROSCOPIC)
[2025-03-12 20:28] LABS: Bilirubin,Urine Negative (Negative); Color,Urine YELLOW (Yellow); Glucose,Urine (UA) Negative (Negative); Ketones,Urine Negative (Negative); Leukocyte Esterase,Urine Negative (Negative); PH,Urine 6.0 (5.0-8.5); Protein,Urine TRACE (Negative); Specific Gravity, Urine 1.010 (1.005-1.030); Urobilinogen,Urine 0.2 EU/dl (0.2)
[2025-03-12 20:32] LABS: Phosphorous 2.4 mg/dl (2.5-4.5)
[2025-03-12 20:35] LABS: WBC,Urine Occasional #/hpf (0-3)
[2025-03-12] MEDS: PIPERACILLIN/TAZO 4.5 GM in 0.9 % SODIUM CHLORIDE 100 ML IV (20:38)
--- NOTE | 2025-03-12 20:44 | PC.NURSE ---
Pt aware of plans for transfer IV antibiotics infusing without difficulty
--- NOTE | 2025-03-12 21:00 | PC.NURSE ---
Report called to Gloria MCKOY Pt awaiting transport to [facility]
[2025-03-12 21:16] LABS: Coronavirus 19, PCR Not Detected (NotDetected); Influenza A, PCR Not Detected (NotDetected); Influenza B, PCR Not Detected (NotDetected)
[2025-03-13 01:08] VITALS: BP 133/63; PULSE 87; RESP 17; TEMP 36.8; O2SAT 97
--- NOTE | 2025-03-13 01:10 | PC.NURSE ---
Pt transported by [facility] to Family at bedside.
== END 2025-03-13 01:12 | disposition short-term general hospital (02) ==
PROVIDERS: Nurse Practitioner; Emergency Provider Student in an Organized Health Care Education/Training Program; PCP Nurse Practitioner
DX: K68.11 Postprocedural retroperitoneal abscess (principal); D72.829 Elevated white blood cell count, unspecified; E83.42 Hypomagnesemia; E87.1 Hypo-osmolality and hyponatremia; R11.10 Vomiting, unspecified; R19.7 Diarrhea, unspecified
CPT/HCPCS: 71045; 74177; 80053; 81001; 83605; 83690; 83735; 84100; 84484; 85025; 85610; 85651; 85730; 86140; 87040; 87631; 93005; 96361; 96365; 99285; J2543; J3475; J7030; Q9967